=== PATIENT | female | born 1970 | race Caucasian/White ===

== ENCOUNTER 2017-06-16 15:55 | Emergency (ER) | payer MEDICAID, SELFPAY ==
[2017-06-16 15:56] VITALS: BP 107/63; PULSE 51; RESP 16; TEMP 36.2; O2SAT 98; BMI 25.7
--- NOTE | 2017-06-16 16:06 | ED.RN ---
pt fell two days ago down her front porch. reports head and neck pain. pt on blood thinner. denies loc. pt a+ox3. reports left shoulder and wrist pain. pt reports slipped on ice.
--- NOTE | 2017-06-16 16:10 | RAD_ITS ---
STUDY: X-RAY - LEFT SHOULDER REASON FOR EXAM: Female, 47 years old. PAIN FALL TECHNIQUE: 4 view(s) of the shoulder. COMPARISON: None. FINDINGS: Normal glenohumeral articulation. Normal acromioclavicular joint. Normal acromion. Normal humeral head and visualized proximal humerus. The soft tissue structures are unremarkable. Normal visualized pulmonary apex. RAD/Shoulder min 2 Views IMPRESSION: Normal x-ray examination of the shoulder. Electronically Signed: Ha Hanson MD at 16:39 EST , Service support ,
--- NOTE | 2017-06-16 16:10 | CT_ITS ---
STUDY: CT BRAIN WITHOUT CONTRAST REASON FOR EXAM: Female, 47 years old. FALL HIT HEAD RADIATION DOSAGE (If Supplied By Facility): CTDIvol = ( 44.99 ) mGy, DLP = ( 745.49 ) mGycm TECHNIQUE: Transaxial CT imaging of the brain was performed without administration of intravenous contrast material. Individualized dose optimization techniques were used for this CT. COMPARISON: None. FINDINGS: Normal soft tissue structures. Normal calvarium. Normal size ventricles and extra-axial spaces for the patient's age. Normal white matter tracts of the cerebral hemispheres. Normal basal ganglia and thalami. Normal brainstem. Normal cerebellum. There is no intracranial hemorrhage. There are no findings of an acute ischemic infarction. Normal visualized paranasal sinuses. CT/Brain/Head without Contrast IMPRESSION: Normal unenhanced CT scan of the brain. Electronically Signed: Ha Hanson MD at 16:38 EST , Service support ,
--- NOTE | 2017-06-16 16:22 | RAD_ITS ---
STUDY: X-RAY - CERVICAL SPINE REASON FOR EXAM: Female, 47 years old. FALL HIT HEAD TECHNIQUE: 3 view(s) of the cervical spine were obtained. COMPARISON: None FINDINGS: Normal anterior atlantoaxial articulation. Normal odontoid process. Normal cervical lordosis. There is multi-level endplate spondylosis. There is multi-level degenerative disc disease with multilevel disc space narrowing. Normal visualized intervertebral neuroforamina. The soft tissue structures are unremarkable. RAD/Cerv Spine 2 or 3 Views IMPRESSION: There are degenerative changes as noted above. Electronically Signed: Ha Hanson MD at 16:40 EST , Service support ,
[2017-06-16] MEDS: 0.9% Normal Saline 1,000 ML 1000 ML IV (17:27)
[2017-06-16] MEDS: proCHLORPERazine 10 MG/2 ML Vial IV (17:28)
--- NOTE | 2017-06-16 17:45 | ED.VISSUMM ---
- ER Visit Summary Date of Service: 06/16/17 Chief Complaint: [Headache] History of Present Illness: The patient is a 47 F [presents to the emergency department with a headache that started earlier today. Patient gives history of a fall 2 days ago and slipping on the ice striking her head on a concrete step. Patient did not think much of the injury initially in had a mild headache but woke up the next morning feeling fine. Today she was working on a computer most of the day and developed a headache for which she took some Excedrin which initially resolved the pain however after about a half an hour the headache came back. Patient describes the headache is right-sided. Patient describes some nausea and some photophobia. She feels somewhat lightheaded. Patient gives history of being on Xarelto for history of A. fib.] Physical Examination: [HEENT-PERRLA, EOMI. Cranial nerves II through XII grossly intact. TMs clear. Mucous membranes moist. No adenopathy. No scalp hematomas noted no bony depressions noted. Patient has some mild tenderness over the C-spine diffusely. Cardiovascular-regular rate and rhythm without murmur or ectopy Lungs-clear to auscultation, chest wall stable without crepitus or subcu emphysema Abdomen-normoactive bowel sounds, soft, nontender, no rebound or rigidity, no peritoneal signs. Neuro ehtf-dxethp-xfpu and heel velasquez testing within normal limits, negative Romberg, negative pronator drift, fundi benign Extremities-intact ?4, normal range of motion, normal pulses, atraumatic]. Patient has some mild tenderness over the anterior glenohumeral joint of the left shoulder with painful range of motion. Test Results: [CT scan of the brain without contrast was normal.] X-rays of the C-spine showed degenerative changes but no fractures. X-rays of the left shoulder show no fractures. Emergency Department Course and Treatment: [Patient had a liter normal same fluid bolus ordered as well as Compazine and Benadryl as well as Decadron 10 mg IV.] His headache resolved Treatment Plan: [Patient advised to follow-up with her primary care physician in 3-5 days] Disposition: [Discharged home in stable condition. Patient advised to return if worsening headache, difficulty with balance, or speech, or condition should worsen in any way.] Impression: [Headache-migraine versus postconcussive type syndrome] This note was generated with [employer] dictation software. It may contain incorrect words, spelling, and punctuation that were not noted in review of the chart prior to signing ED Disposition - Plan for ED Patient: Chief Complaint: Headache Referrals: Maxime Caldwell DO [Primary Care Provider] -
--- NOTE | 2017-06-16 18:04 | ED.DEP ---
ED Disposition - Plan for ED Patient: Chief Complaint: Headache Instructions: ED Headache Migraine, ED Concussion Referrals: Maxime Caldwell DO [Primary Care Provider] - 3-5 Days
--- NOTE | 2017-06-16 18:05 | ED.RN ---
THIS RN REASSESSED PT POST MEDICATION. PT RESTING COMFORTABLY, AWAKENED EASILY. REPORTS, I AM FEELING BETTER. RATES PAIN 2/10. PT PLACED FOR RE-EVALUATION BY
[2017-06-16 18:13] VITALS: BP 115/62; PULSE 63; RESP 14; O2SAT 98
--- NOTE | 2017-06-16 18:14 | ED.RN ---
PT AND EDUCATED ON WRITTEN AND VERBAL DISCHARGE INSTRUCTIONS. PT AND VERBALIZE UNDERSTANDING. PT EDUCATED NOT TO DRIVE AFTER HAVING COMPAZINE BECAUSE IT CAN MAKE PT DROWSY. REPORTS HE WILL DRIVE HOME. PT IV D/C WITH CATHETER INTACT. PRESSURE APPLIED TO SITE, BECAUSE PT IS ON BLOOD THINNER. BLEEDING STOPPED. PT AMBULATORY HOME WITH . NO NEED FOR STAFF ASSISTANCE.
== END 2017-06-16 18:16 | disposition home or self-care (01) ==
LOC: ED 16:38
PROVIDERS: Emergency Provider Emergency Medicine; Family Provider Student in an Organized Health Care Education/Training Program; PCP Student in an Organized Health Care Education/Training Program
DX: S06.0X9A Concussion with loss of consciousness of unspecified duration, initial encounter (principal); R51 Headache; S43.402A Unspecified sprain of left shoulder joint, initial encounter; S16.1XXA Strain of muscle, fascia and tendon at neck level, initial encounter; W00.0XXA Fall on same level due to ice and snow, initial encounter; Y93.9 Activity, unspecified; Y92.89 Other specified places as the place of occurrence of the external cause; Y99.9 Unspecified external cause status; I48.91 Unspecified atrial fibrillation; E03.9 Hypothyroidism, unspecified; F32.9 Major depressive disorder, single episode, unspecified
CPT/HCPCS: 70450; 72040; 73030; 99283; J7030

== ENCOUNTER 2017-06-28 03:30 | Observation (INO) | payer OTHER, MEDICAID, SELFPAY ==
[2017-06-28] VITALS (21 sets, daily range): BP systolic 80–100; BP diastolic 42–64; PULSE 63–122; RESP 12–18; TEMP 36.3–36.9; O2SAT 95–99; BMI 26.4; BMI 26.6; BMI 26.7
--- NOTE | 2017-06-28 03:49 | RAD_ITS ---
STUDY: X-RAY CHEST REASON FOR EXAM: Female, 47 years old. Dizziness TECHNIQUE: Single AP portable view of the chest. COMPARISON: None. FINDINGS: Pacemaker is seen on the left side. The lungs are clear and expanded. There is no demonstrated pleural abnormality. Normal size heart. Normal mediastinum and berta. Normal visualized pulmonary arteries. Normal visualized aortic arch and descending thoracic aorta. Normal visualized thoracic spine. Normal visualized ribs, clavicles, and shoulders. There is no demonstrated abnormality of the visualized soft tissue structures of the upper abdomen. RAD/Chest 1 View (Portable) IMPRESSION: Normal x-ray examination of the chest. Electronically Signed: Frankie Mullins MD at 4:43 EST Tel , Service support ,
--- NOTE | 2017-06-28 03:49 | CT_ITS ---
STUDY: CT BRAIN WITHOUT CONTRAST REASON FOR EXAM: Female, 47 years old. DIZZINESS, THINKS SHE PASSED OUT, HX A-FIB, PT HAS ICD THAT IS TURNED OFF RADIATION DOSAGE (If Supplied By Facility): CTDIvol = ( 44.99 ) mGy, DLP = ( 762.36 ) mGycm TECHNIQUE: Transaxial CT imaging of the brain was performed without administration of intravenous contrast material. Individualized dose optimization techniques were used for this CT. COMPARISON: None. FINDINGS: Normal soft tissue structures. Normal calvarium. Normal size ventricles and extra-axial spaces for the patient's age. Normal white matter tracts of the cerebral hemispheres. Normal basal ganglia and thalami. Normal brainstem. Normal cerebellum. There is no intracranial hemorrhage. There are no findings of an acute ischemic infarction. Normal visualized paranasal sinuses. CT/Brain/Head without Contrast IMPRESSION: Normal unenhanced CT scan of the brain. Electronically Signed: Frankie Mullins MD at 4:30 EST Tel , Service support ,
--- NOTE | 2017-06-28 03:49 | EKG12_ITS ---
Test Reason : DIZZINESS Blood Pressure : / mmHG Vent. Rate : 081 BPM Atrial Rate : 375 BPM P-R Int : 000 ms QRS Dur : 104 ms QT Int : 438 ms P-R-T Axes : 000 071 -84 degrees QTc Int : 508 ms Atrial fibrillation with occasional ventricular-paced complexes Marked ST abnormality, possible inferior subendocardial injury Marked ST abnormality, possible anterolateral subendocardial injury Prolonged QT Abnormal ECG Confirmed by EVE PLUMMER, JAMIL ([id number]), city magistrate YAMEL ROGERS ([id number]) on 06/29/2017 1:03:08 PM Referred By: CHELLE Confirmed By:JAMIL PRADO MD
[2017-06-28] MEDS: 0.9% Normal Saline 1,000 ML 1000 ML IV (04:01)
[2017-06-28 04:04] LABS: Absolute Lymphocyte Count 1.67 X10^3/ul (0.83-4.51); Absolute Neutrophil Count 3.3 X10^3/uL (2.0-7.7); Basophil# 0.04 X10^3/uL; Basophil% 0.7 % (0-1); Eosinophil# 0.11 X10^3/uL; Hematocrit 39.4 % (37-47); Hemoglobin 13.5 g/dl (12.0-15.0); Lymphocyte # 1.67 X10^3/ul (4.0); Lymphocyte % 30.2 % (19-41); Mean Corp Hgb Conc 34.3 g/gl (32-36); Mean Corpuscular Hgb 28.5 pg (27.0-32.0); Mean Corpuscular Volume 83.1 fL (81-99); Mean Platelet Vol. 9.8 fl (6.2-12.0); Monocyte# 0.46 X10^3/uL; Monocyte% 8.3 % (0-10); Neutrophil # 3.25 X10^3/uL (2.7-7.7); Neutrophil % 58.8 % (47-70); Platelet Count 178 K/mm3 (150-450); RBC Distribution Width CV 13.2 % (11.6-14.6); RBC Distribution Width SD 39.4 fl (35.1-43.9); Red Blood Count 4.74 M/mm3 (4.2-5.4); White Blood Count 5.5 K/mm3 (4.4-11.0)
[2017-06-28 04:11] LABS: POSITIVE COUNT NO; POSITIVE DIFFERENTIAL NO; POSITIVE MORPHOLOGY NO
[2017-06-28 04:17] LABS: Anion Gap 7 (5-15); BUN 16 mg/dL (7-18); BUN/Creat Ratio 18.8 RATIO (10-20); Calcium,Total 8.4 mg/dL (8.5-10.1); Chloride 105 mmol/L (98-107); Creatinine, Serum 0.85 mg/dL (0.55-1.02); EST Glomerular Filtration Rate 76 mL/min (>60); Est Glom Filt Rate - Afr Amer 91 mL/min (>60); Estimated Creatinine Clearance 72.04 ml/min; Glucose 108 mg/dL (74-106); Sodium Level 140 mmol/L (136-145)
--- NOTE | 2017-06-28 04:40 | NURSING ---
DR. CORBETT MADE AWARE OF PATIENT'S BP OF 85/53 AND HE DOESN'T WANT HER TO HAVE ANYMORE FLUIDS.
--- NOTE | 2017-06-28 04:45 | ED.VISSUMM ---
- ER Visit Summary Date of Service: 06/28/17 Chief Complaint: Syncope History of Present Illness: The patient is a [address] Chaparro and Dr. Caldwell. She has a history of paroxysmal atrial fibrillation, hypertrophic obstructive cardiomyopathy, and mitral valve prolapse. She is anticoagulated with Xarelto. Patient reports that she woke up this morning and sat up and everything was black. She laid back down and did not have a loss of consciousness. She then went to the bathroom. When she stood up off the commode she was lightheaded and did have a syncopal episode. There was no preceding chest pain, shortness of breath, or palpitations. She reports that she has right shoulder pain that is 1 out of 10 in severity. She has right ear pain that is 2 out of 10 in severity. Review of systems is negative. Physical Examination: Vitals: 97.4, 81/55, 91, 18, 97% on room air which is not hypoxic. General: Well-nourished and well-developed. Head: Normocephalic atraumatic. Neck: Supple, no lymphadenopathy. No JVD. Nontender. Cardiovascular: Irregularly irregular rhythm with a 3 out of 6 systolic murmur. Respiratory: No respiratory distress. Clear to auscultation bilaterally. Abdominal: Soft, nontender, nondistended, normal bowel sounds. No guarding, rebound, or peritoneal signs. Back: Nontender. Extremities: Nontender, no edema. Skin: Normal color, no rash. Neurologic: Alert and oriented ?3. Cranial nerves II through XII are intact. Normal strength and sensation. Psych: Normal affect. Test Results: EKG shows atrial fibrillation rate of 81 with occasional ventricular paced complexes. She has T-wave inversions and ST depression in the inferior leads as well as V3 to V6. This is not significantly changed from an EKG that she had back in April 2013 when she was in atrial fibrillation. CBC is normal. Chem-7 is marked for glucose of 108 and calcium of 8.4. Troponin is negative. Chest x-ray shows no acute disease. CT the brain shows no acute disease. Emergency Department Course and Treatment: Patient is given a liter bolus of normal saline. She did remain hypotensive. However, she reports that this is her baseline blood pressure. Treatment Plan: The patient was discussed with Dr. Escalona who asked that she be admitted to the hospital for further evaluation and treatment. He was then discussed with Dr. Betancur. Disposition: Admitted in improved condition. Impression: 1. Syncope. 2. Atrial fibrillation. 3. Hypertrophic obstructive cardiomyopathy. 4. Coagulopathy on Xarelto. 5. Hypotension. This note was generated with [employer] dictation software. It may contain incorrect words, spelling, and punctuation that were not noted in review of the chart prior to signing ED Disposition - Plan for ED Patient: Chief Complaint: Dizziness Referrals: Maxime Caldwell DO [Primary Care Provider] -
--- NOTE | 2017-06-28 05:12 | PCM.HP.STD ---
Problem List (1) Micturition syncope Status: Acute (2) Afib Status: Acute (3) Hypokalemia Status: Acute (4) Depressed Status: Chronic (5) Hypertrophic cardiomyopathy Status: Chronic History of Present Illness Date of Admission: 06/28/17 Chief Complaint: Micturition syncope The patient is a 47 year old female w/ h/o paroxysmal atrial fibrillation, hypertrophic obstructive cardiomyopathy, and mitral valve prolapse admitted for micturition syncope. She woke up this morning and had to use the restroom. She felt dizzy upon standing and had to lay back down. However, she had to go so she got up slowly and went to the restroom. She felt that upon standing up, everything was temporary black. She carefully made her way to the commode and used the restroom. She fainted shortly after urination when she attempted to stand up to make her way back. She hit her right arm and ear. There was no lost of consciousness. Laying down help with her dizziness. She was no associated SOB, chest pain or palpitation. She went to the ED for further workup. Past Medical History Past Medical History (Chronic Problems): Chronic Problems Depressed (Chronic) Hypothyroidism (Chronic) Hypertrophic cardiomyopathy (Chronic) Allergies codeine Adverse Reaction (Verified 06/28/17 03:36) Vomiting latex Adverse Reaction (Verified 06/28/17 03:36) Unknown Penicillins Adverse Reaction (Verified 06/28/17 03:36) Swelling BENADRYL Adverse Reaction (Uncoded 06/28/17 03:36) Other Home Medications: Ambulatory Orders Medication Instructions Recorded Levothyroxine [Synthroid] 112 mcg PO DAILY 04/26/13 Ubidecarenone [Co Q-10] 200 mg PO DAILY 04/26/13 Metoprolol(XL)Succ [Toprol Xl 50 mg PO BID 06/05/14 (Beta Rodrigue)] Multivit with Calcium,Iron,Min 1 tab PO DAILY 06/05/14 [Multiple Vitamins For Women] Omeprazole [Prilosec] 40 mg PO PRN PRN 06/05/14 BuPROPion [Wellbutrin] 75 mg PO DAILY 06/16/17 Rivaroxaban [Xarelto] 10 mg PO DAILY 06/16/17 Tamsulosin HCl [Flomax] 0.4 mg PO DAILY PRN PRN 06/28/17 Surgical History: - - Recent oophorectomy which had no complications Psychiatric History: No pertinent psych hx [employer] History: - - Recent oophorectomy Smoking Status: Former smoker Alcohol: None Drugs: None - *Family History Maternal History Items: No pertinent history Review of Systems Constitutional: Denies: Chills, Fever, Weight Change Eyes: Denies: Cataracts, Double vision, Eyelid Inflammation HEENT: Denies: Head Aches, Sinus Congestion, Sinus Drainage Cardiovascular: Denies: Chest Pain, Palpitations Respiratory: Denies: Cough, Shortness of breath at rest, Sputum production Gastrointestinal: Denies: Abdominal Pain, Nausea, Vomiting Genitourinary: Denies: Dysuria Musculoskeletal: Denies: Joint Pain, Joint Tenderness Skin: Denies: Rash, Wounds Neurological: Denies: Numbness, Tingling, Focal weakness Psychiatric: Denies: Anxiety, Depression, Homicidal Ideations, Suicidal Ideations Hematologic/ Lymphatic: Denies: Easy Bruising, Easy Bleeding VTE Information - Inpt Only VTE Present on Admission: No VTE Mechan Device Prophylaxis: SCD's VTE Pharm Prophylaxis ordered?: Yes Patient Problems: Active and Suspected Problems Micturition syncope (Acute) - Physical Exam General: Alert, Oriented x3, Cooperative HEENT: Atraumatic, PERRLA, EOMI, Normocephalic Neck: Supple, No JVD, Negative Carotid Bruits Lungs: Clear to auscultation, Normal air movement Cardiovascular: Regular rate, No murmurs Abdomen: Bowel Sounds Present, Soft, Non Tender Extremities: No edema, Capillary Refill Less than 3 Seconds Skin: No rashes, No breakdown Musculoskeletal: No Tenderness to Palpation of Joints or Extremities Neurological: Cranial nerves II-XII grossly intact Psych/Mental Status: Normal Affect, Appropriate Vital Signs Temp Pulse Resp BP Pulse Ox 97.4 F L 93 17 91/64 98 06/28/17 04:42 06/28/17 04:42 06/28/17 04:42 06/28/17 04:42 06/28/17 04:42 Oxygen Delivery Method Room Air Weight: 72 kg Body Mass Index (BMI) 26.4 Laboratory Tests Past 24 Hrs 06/28/17 06/28/17 03:42 03:42 WBC 5.5 RBC 4.74 Hgb 13.5 Hct 39.4 MCV 83.1 MCH 28.5 MCHC 34.3 RDW 13.2 RDW Differential 39.4 Plt Count 178 MPV 9.8 Immature Gran % (Auto) 0.000 Neut % (Auto) 58.8 Lymph % (Auto) 30.2 [place] % (Auto) 8.3 Eos % (Auto) 2.0 Baso % (Auto) 0.7 Absolute Neuts (auto) 3.3 Absolute Lymphs (auto) 1.67 Total Counted Not Reportable Sodium 140 Potassium 4.0 Chloride 105 Carbon Dioxide 28.0 Anion Gap 7 BUN 16 Creatinine 0.85 Estim Creat Clear Calc 72.04 Est GFR (MDRD) Af Amer 91 Est GFR (MDRD) Non-Af 76 BUN/Creatinine Ratio 18.8 Glucose 108 H Calcium 8.4 L Troponin I < 0.02 Assessment/Plan Active and Suspected Problems Micturition syncope (Acute) 47 year old female w/ h/o paroxysmal atrial fibrillation, hypertrophic obstructive cardiomyopathy, and mitral valve prolapse admitted for micturition syncope. 1) Micturition syncope: Probably a combination of vasovagal and postural hypotension. Will get serial trops. Will get ECHO in AM. Will get orthostatic. Will also get carotid U/S. Will get Utox. CT brain negative. Monitor. 2) Orthostatic hypotension: Probably secondary to volume down. Will hydration. Check orthostatic. No e/o infection, ie no fever, no leukocytosis, unremarkable chest xray for infection. Monitor. 3) Paroxysmal atrial fibrillation: EKG unchanged from 2013 which disclosed afib with T-wave inversion and ST depression in inferior leads. Will hold metoprolol given symptomatic hypotension. Hydration. Will consider IV meds to control rate if needed. Will also consider cardizem if needed. Serial trops. Monitor. 4) Prophylaxis: Xarelto.
--- NOTE | 2017-06-28 05:26 | ED.RN ---
PATIENT C/O DIZZINESS AND NAUSEA. DR. CORBETT MADE AWARE. HE DOESNT WANT TO DO ANYTHING AT THIS TIME. [place] ORDERED.
[2017-06-28] MEDS: Ondansetron 4 MG/2 ML Vial IV (05:33)
--- NOTE | 2017-06-28 05:49 | CDU_ITS ---
Reason For Study: syncope Rt. Velocities/BP Lt. Velocities/BP Prox CCA 87.9/15.8 cm/sec. Prox CCA 99.7/18.2 cm/sec. Mid CCA 98.5/19.9 cm/sec. Mid CCA 117.0/28.7 cm/sec. Dist CCA 82.1/22.3 cm/sec. Dist CCA 113.0/24.6 cm/sec. Prox ICA 87.4/16.4 cm/sec. Prox ICA 73.3/21.1 cm/sec. Mid ICA 71.5/31.7 cm/sec. Mid ICA 84.4/34.6 cm/sec. Dist ICA 62.1/27.0 cm/sec. Dist ICA 90.9/42.2 cm/sec. Rt. ICA/CCA = 71.5/98.5=0.73. Lt. ICA/CCA = 90.9/117.0=0.78. Prox ECA 91.5/11.7 cm/sec. Prox ECA 109.0/16.4 cm/sec. Rt. Vert. 43.6/16.9 cm/sec. Lt. Vert. 51.5/18.5 cm/sec. Right Extracranial There is no significant atherosclerotic plaque noted in the right common carotid artery. There is no significant atherosclerotic plaque noted in the right internal carotid artery. There is no significant atherosclerotic plaque noted in the right external carotid artery. Antegrade flow is noted in the right vertebral artery. Left Extracranial There is no significant atherosclerotic plaque noted in the left common carotid artery. There is intimal thickening but no significant atherosclerotic plaque noted in the left internal carotid artery. There is no significant atherosclerotic plaque noted in the left external carotid artery. Antegrade flow is noted in the left vertebral artery. Procedure Carotid Duplex 72074. The study was technically difficult. Due to arrhythmia. Exam performed portable in patient room. Interpretation Summary Mild (<50%) stenosis right extracranial internal carotid. Mild (<50%) stenosis left extracranial internal carotid. Flow within the vertebral arteries is antegrade bilaterally. Ordering Physician: Zi Swift Referring Physician: Maxime Caldwell Performed By: Hannah Mulligan, NOHEMI, RVT
--- NOTE | 2017-06-28 05:55 | ECHOD_ITS ---
Reason For Study: HTN Procedure This was a 2D Doppler, Color Flow transthoracic echocardiogram. The study was technically difficult. Exam performed portable in patient room. Left Ventricle Normal LV size. Severe eccentric left ventricular hypertrophy. The echo findings are consistent with hypertrophic cardiomyopathy. Left ventricular systolic function is normal. The estimated ejection fraction is 65 %. Unable to assess diastolic dysfunction. No regional wall motion abnormalities noted. Right Ventricle Normal RV size. ICD or pacer leads identified within the right ventricle. Normal systolic function. Atria Normal left atrium. Normal right atrium. ICD or pacer leads identified within the right atrium. Mitral Valve Bileaflet diffuse mitral valve thickening. There is mild to moderate mitral annular calcification. Systolic anterior motion of the mitral valve. Mild-Moderate (1-2+) eccentric mitral valve insufficiency. Tricuspid Valve Normal tricuspid valve. Mild (1+) tricuspid valve insufficiency. Pulmonary artery systolic pressure is 31 mmHg. Aortic Valve Trisinus/trileaflet aortic valve. Pulmonic Valve Normal pulmonic valve. Great Vessels Normal aortic root. The pulmonary artery is normal size. Normal inferior vena cava. Pericardium/Pleural Trivial pericardial effusion. MMode/2D Measurements & Calculations LVIDd: 3.5 cm IVSd: 1.7 cm LA dimension: 4.3 cm LVIDs: 1.5 cm LVPWd: 1.6 cm RVDd: 3.1 cm FS: 58.2 % LAV(MOD-bp): 59.2 ml LA A4 area: 18.1 cm2 RA A4 area: 11.8 cm2 LAV(MOD-bp) Indexed: 33.1 ml/m2 LAV(MOD-sp2): 66.8 ml LAV(MOD-sp4): 49.6 ml Doppler Measurements & Calculations MV E max quang: 155.4 cm/sec TR max quang: 256.9 cm/sec TR max P.5 mmHg Interpretation Summary Normal LV size. Severe eccentric left ventricular hypertrophy. Left ventricular systolic function is normal. The estimated ejection fraction is 65 %. The echo findings are consistent with hypertrophic cardiomyopathy. Unable to assess diastolic dysfunction. Ordering Physician: Zi Swift Referring Physician: GERALDINE YOUSIF Performed By: Dipika Dunn, NOHEMI, RVT
[2017-06-28] MEDS: 0.9% Normal Saline 1,000 ML 999 ML IV (06:07)
--- NOTE | 2017-06-28 06:09 | NURSING ---
Attempted to get full set of orthostatic vital signs, but patient felt as though she was too dizzy to stand at this time.
[2017-06-28] MEDS: Levothyroxine 112 MCG Tablet PO (06:38)
[2017-06-28] MEDS: 0.9% Normal Saline 1,000 ML 125 ML IV ×2 (07:14→12:41)
[2017-06-28 08:21] LABS: Red Blood Count 4.52 M/mm3 (4.2-5.4); White Blood Count 7.1 K/mm3 (4.4-11.0)
[2017-06-28 08:22] LABS: Basophil% 0.3 % (0-1); Eosinophils% 0.6 % (0-5); Hematocrit 38.1 % (37-47); Hemoglobin 12.9 g/dl (12.0-15.0); Lymphocyte % 12.4 % (19-41); Mean Corp Hgb Conc 33.9 g/gl (32-36); Mean Corpuscular Hgb 28.5 pg (27.0-32.0); Mean Corpuscular Volume 84.3 fL (81-99); Mean Platelet Vol. 9.5 fl (6.2-12.0); Monocyte% 2.5 % (0-10); Neutrophil # 5.99 X10^3/uL (2.7-7.7); Neutrophil % 84.1 % (47-70); POSITIVE COUNT NO; POSITIVE DIFFERENTIAL NO; POSITIVE MORPHOLOGY NO; Platelet Count 139 K/mm3 (150-450); RBC Distribution Width CV 13.2 % (11.6-14.6); RBC Distribution Width SD 39.9 fl (35.1-43.9)
[2017-06-28 08:23] LABS: Basophil# 0.01 X10^3/uL; Eosinophil# 0.04 X10^3/uL; Lymphocyte # 0.88 X10^3/ul (4.0); Monocyte# 0.18 X10^3/uL
[2017-06-28 08:50] LABS: ALB/GLOB Ratio 1.3 RATIO (0.9-2.4); AST(SGOT) 13 U/L (15-37); Alanine Aminotransfer ALT/SGPT 20 U/L (13-56); Albumin, Serum 3.4 g/dL (3.2-5.0); Alkaline Phosphatase 57 U/L (45-117); Anion Gap 8 (5-15); BUN 14 mg/dL (7-18); BUN/Creat Ratio 22.7 RATIO (10-20); Calcium,Total 7.8 mg/dL (8.5-10.1); Chloride 111 mmol/L (98-107); Creatinine, Serum 0.62 mg/dL (0.55-1.02); EST Glomerular Filtration Rate 109 mL/min (>60); Est Glom Filt Rate - Afr Amer 132 mL/min (>60); Estimated Creatinine Clearance 98.77 ml/min; Globulin 2.6 g/dL (2.2-4.2); Glucose 119 mg/dL (74-106); Potassium 4.3 mmol/L (3.5-5.1); Sodium Level 143 mmol/L (136-145)
[2017-06-28] MEDS: Rivaroxaban 10 MG Tablet PO (09:10)
[2017-06-28 10:16] LABS: Amphetamine Urine VISTA NEGATIVE (<1000 ng/mL); Barbiturate Urine VISTA NEGATIVE (< 200 ng/mL); Benzodiazepine Urine VISTA NEGATIVE (< 200 ng/mL); Cocaine Urine VISTA NEGATIVE (< 300 ng/mL); Ecstacy Urine VISTA NEGATIVE (< 500 ng/mL); Methadone Urine VISTA NEGATIVE (< 300 ng/mL); PCP Urine VISTA NEGATIVE (< 25 ng/mL); THC Urine VISTA NEGATIVE (< 50 ng/mL); Vista UDS pH Range 7
--- NOTE | 2017-06-28 10:50 | CON.PCM_ITS ---
Reason for Consult Date of Consultation: 06/28/17 Reason for Consultation: Syncope and atrial fibrillation History of Present Illness: The patient is a 47 year old F history significant for hypertrophic cardiomyopathy of the obstructive variety with mild mitral valve prolapse and regurgitation also a history of paroxysmal atrial fibrillation. She initially underwent dual-chamber pacemaker implantation in 1998 which was subsequently upgraded to an ICD. Per the patient's request it was then changed back to a dual-chamber pacemaker. She had been doing well but said that she had had some renal problems and was put on Flomax. She took a Flomax yesterday and this morning when she got up she realized that she was dizzy. Got up to go to the bathroom and she subsequently passed out. The next thing she knew was his son was calling her. She presented to the emergency room and was noted to be in atrial fibrillation and also relatively hypotensive. She denies any chest pain or shortness of breath or paroxysmal nocturnal dyspnea she did not feel her atrial fibrillation she has been anticoagulated with Xarelto. Last evaluation in the office was in February 2017 and at that time she was noted to be doing well her last echocardiogram in September 2016 demonstrated an ejection fraction of 60 % with severe asymmetric septal hypertrophy moderate left atrial enlargement and mitral valve prolapse with 2+ mitral regurgitation. She currently feels well. [] Past Medical History Allergies/Adverse Reactions: Allergies codeine Adverse Reaction (Verified 06/28/17 03:36) Vomiting latex Adverse Reaction (Verified 06/28/17 03:36) Unknown Penicillins Adverse Reaction (Verified 06/28/17 03:36) Swelling BENADRYL Adverse Reaction (Uncoded 06/28/17 03:36) Other Home Medications: Ambulatory Orders Medication Instructions Recorded Levothyroxine [Synthroid] 112 mcg PO DAILY 04/26/13 Ubidecarenone [Co Q-10] 200 mg PO DAILY 04/26/13 Metoprolol(XL)Succ [Toprol Xl 50 mg PO BID 06/05/14 (Beta Rodrigue)] Multivit with Calcium,Iron,Min 1 tab PO DAILY 06/05/14 [Multiple Vitamins For Women] Omeprazole [Prilosec] 40 mg PO PRN PRN 06/05/14 BuPROPion [Wellbutrin] 150 mg PO DAILY 06/16/17 Rivaroxaban [Xarelto] 20 mg PO DAILY 06/16/17 Tamsulosin HCl [Flomax] 0.4 mg PO DAILY PRN PRN 06/28/17 Past Medical History (Chronic Problems): Chronic Problems Depressed (Chronic) Hypothyroidism (Chronic) Hypertrophic cardiomyopathy (Chronic) Surgical History: - - Recent oophorectomy which had no complications Psychiatric History: 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 Denies: Chest Discomfort, Shortness of Breath, Orthopnea, PND, Peripheral Edema, Palpitations, Lightheadedness, Near Syncope Respiratory: Denies: Cough, Sputum Production, Hemoptysis Gastrointestinal: Denies: Hematemesis, Hematochezia, Melena Genitourinary: Denies: Dysuria, Hematuria Skin: Denies: Rash Subjectve: Pleasant lady in no apparent distress. Objective: Vital Signs Temp Pulse Resp BP Pulse Ox 97.5 F L 87 18 92/50 L 95 06/28/17 10:04 06/28/17 10:04 06/28/17 10:04 06/28/17 10:04 06/28/17 10:04 Oxygen Delivery Method Room Air Weight: 160 lb 7.944 oz Body Mass Index (BMI) 26.6 Orthostatic Vital Signs Start: 06/28/17 06:08 Freq: q24h Status: Active Protocol: Activity Type Activity Date Activity User E-Sign Co-Sign Detail Recorded Client Recorded Date Recorded By Document 06/28/17 06:08 [facility] [id number] 06/28/17 06:09 [facility] 06/28/17 06:08 Orthostatic Vitals Sitting -Blood Pressure (90/60-120/80) 81/50 L -Extremity Use Right Arm -Pulse Rate (60-100) 108 H Lying -Blood Pressure (90/60-120/80) 86/55 L -Extremity Use Right Arm -Pulse Rate (60-100) 105 H 06/28/17 06:09 Nursing Note by Loraine Walden Attempted to get full set of orthostatic vital signs, but patient felt as though she was too dizzy to stand at this time. Initialized on 06/28/17 06:09 - END OF NOTE Intake and Output for Last 24 Hours 06/26/17 06/27/17 06/28/17 23:59 23:59 23:59 Intake Total 349 / 349 Balance 349 / 349 General: Awake, Alert, Oriented x 3 HEENT: PERRL, EOMI, Sclera Non Icteric Neck: Supple, Good ROM, No Lymph Node Enlargement Lungs: Clear to auscultation Cardiovascular: Irregular Rhythm, Normal S1, Normal S2, No Rubs, No Gallops Murmur Murmur: Grade 2/6, Mid Systolic, LLSB, Axilla Vascular: No Carotid Bruits, Normal Femoral Pulses, Normal Radial Pulses, Normal Dorsalis Pedal Pulse, Normal Posterior Tibial Pulses Abdomen: Bowel Sounds Present, Soft, Non Tender, No HSM, No Organomegaly Extremities: No Cyanosis, No Clubbing, No edema Neurological: No Focal Motor or Sensory Deficit 06/28/17 07:55: Sodium 143, Potassium 4.3, Chloride 111 H, Carbon Dioxide 24.0, Anion Gap 8, BUN 14, Creatinine 0.62, Est GFR (MDRD) Af Amer 132, Est GFR (MDRD ) Non-Af 109, BUN/Creatinine Ratio 22.7 H, Glucose 119 H, Calcium 7.8 L, Total Bilirubin 0.40 06/28/17 07:55: WBC 7.1, RBC 4.52, Hgb 12.9, Hct 38.1, MCV 84.3, MCH 28.5, MCHC 33.9, RDW 13.2, RDW Differential 39.9, Plt Count 139 L, MPV 9.5, Immature Gran % (Auto) 0.100, Neut % (Auto) 84.1 H, Lymph % (Auto) 12.4 L, [place] % (Auto) 2.5, Eos % (Auto) 0.6, Baso % (Auto) 0.3, Absolute Neuts (auto) Not Reportable, Total Counted Not Reportable 06/28/17 07:55: Troponin I 0.02 Rhythm: EKG: Atrial fibrillation Assessment/Plan 1. Syncopal episode Etiology of the above is likely multifactorial secondary to the atrial fibrillation as well as the Flomax which may have precipitated relative hypotension. My recommendation at this time would be to attempt to restore sinus rhythm or AV sequentially paced rhythm. As the patient has been on anticoagulation continuously I would recommend that we perform a DC cardioversion this afternoon. She should also continue to receive intravenous fluids. If she successfully reverts back to sinus rhythm then I would not make any changes. The Flomax should likely be discontinued or she can call her urologist for an alternative agent. 2. Paroxysmal atrial fibrillation She appears to be back in atrial fibrillation and is anticoagulated. We will attempt to get her back into sinus rhythm which would be beneficial for her hypertrophic cardiomyopathy. 3. Severe asymmetric hypertrophic cardiomyopathy Appears to be fairly stable with this I do not think that she had a malignant rhythm however her pacemaker will be interrogated to ensure that no abnormalities were noted. 4. Dual chamber pacemaker We will continue to have her pacemaker interrogated through our pacemaker clinic and it will be interrogated later today. Have explained the above to her as well as her mother and she understands and agrees to proceed.
--- NOTE | 2017-06-28 11:37 | EKG12_ITS ---
Test Reason : CARDIOVERSION Blood Pressure : / mmHG Vent. Rate : 064 BPM Atrial Rate : 064 BPM P-R Int : 130 ms QRS Dur : 138 ms QT Int : 492 ms P-R-T Axes : 068 -82 089 degrees QTc Int : 507 ms Atrial-sensed ventricular-paced rhythm Abnormal ECG When compared with ECG of 28-JUN-2017 04:03, MANUAL COMPARISON REQUIRED, DATA IS UNCONFIRMED Confirmed by EVE PLUMMER, JAMIL ([id number]), video effects editor YAMEL ROGERS ([id number]) on 06/29/2017 2:00:22 PM Referred By: JAMIL PRADO Confirmed By:JAMIL PRADO MD
--- NOTE | 2017-06-28 12:33 | PCM.OP.BLANK ---
Operative Report Date of Procedure: 06/28/17 DC cardioversion Symptomatic atrial fibrillation with hypertrophic obstructive cardiomyopathy. Patient was seen in consultation and then also seen by Dr. Silva of the critical care anesthesia division. After appropriate informed consent was obtained anterior posterior pads were applied. The patient was then administered 6 mg of intravenous etomidate denies DC cardioversion energy was then applied with 200 J with prompt reversal to sinus rhythm. Patient tolerated the procedure well postprocedure EKG demonstrated sinus rhythm with ventricular pacing at a rate of 5 bpm. Postprocedure blood pressure was 110/70 mmHg. Conclusion Successful DC cardioversion to sinus rhythm. Continue beta-heather as well as Xarelto.
--- NOTE | 2017-06-28 13:05 | PCM.PACRNU ---
Pacer Nurse Hospital Visit Notes: Dual Chamber Pacemaker Evaluation: Interrogation completed post cardioversion at bedside PCU #[id number]. Interrogation shows presenting rhythm to be P synchronous paced @ 72 ppm. Lead impedances and sensing stable. Battery longevity approx 9.5 yrs. CITY MANAGER=73%. Interrogation shows atrial burden 21% and 119 NSVT episodes since last check on 06/11/17. Stored e-grams show atrial fib with RVR and not true VT. Pt had numerous episodes on 06/19/17 and today 06/28/15 @ 1:30am pt went into atrial fib with RVR up to 170 bpm. Pt stated she took a Flomax last night before going to bed and then when got up to go to the bathroom she had syncopal episode. Normal PPM function. No parameter changes made. Counters cleared. Dr. Chaparro notified of above. Genny Cherry RN
--- NOTE | 2017-06-28 14:17 | PCM.OP.BLANK ---
Operative Report Date of Procedure: 06/28/17 CONSCIOUS SEDATION REPORT DATE OF SERVICE: June 28, 2017 BRIEF HISTORY OF PRESENT ILLNESS: The patient is a 47-year-old female with a history of paroxysmal atrial fibrillation and hypertrophic obstructive cardiomyopathy, who presented to the emergency department with a syncopal event. She was noted to be in atrial fibrillation with a rapid ventricular rate at the time of her arrival. The patient was evaluated by cardiology and was referred to undergo a cardioversion. The patient has previously undergone a cardioversion in 2012. She denies any underlying lung disease. She has never been diagnosed with obstructive sleep apnea. Her last ejection fraction was 65-70%. She is currently anticoagulated on Xarelto. PHYSICAL EXAMINATION: VITAL SIGNS: Reviewed and were acceptable. GENERAL: The patient is a female, in no apparent distress, speaking in full sentences. HEENT: Normocephalic, atraumatic. Mucous membranes are moist and pink. Good mouth opening noted. Trachea is midline. Good neck mobility. CHEST: S1, S2 irregularly irregular. Systolic murmur is present LUNGS: Clear to auscultation bilaterally without appreciable wheezes, rales or rhonchi. ABDOMEN: Soft, nontender, nondistended. Positive bowel sounds. EXTREMITIES: There is no clubbing, cyanosis or edema. ASA Class: II DESCRIPTION OF PROCEDURE: After confirmation of informed consent, the patient's anesthesia plan was reviewed in detail. Etomidate was chosen. Risks and benefits were reviewed and the patient agreed to proceed. At 1148, the patient was given 6 mg of etomidate. The patient achieved an appropriate level of sedation and was given a 200 joule synchronized cardioversion by Dr. Chaparro at the bedside. This was successful in achieving normal sinus rhythm. The patient was monitored until 1158, at which time she reached her baseline mental status and function. The patient tolerated the procedure well. COMPLICATIONS: None ESTIMATED BLOOD LOSS: None RECOMMENDATIONS: Okay to recover in usual fashion. Code Visit 9xxxx: Other Procedure See Report
--- NOTE | 2017-06-28 15:20 | PCM.DC ---
- Discharge Diagnoses Current Active Problems: Current Active and Chronic Problems Micturition syncope (Acute) You will use the following diet at home:: No restrictions Your food should be the consistency of: Regular Your liquids should be the consistency of: Regular/Thin Discharge Activity: Return to Normal Activity Weight Bearing Status: Full weight bearing Allergies/Adverse Reactions: Allergies codeine Adverse Reaction (Verified 06/28/17 03:36) Vomiting latex Adverse Reaction (Verified 06/28/17 03:36) Unknown Penicillins Adverse Reaction (Verified 06/28/17 03:36) Swelling BENADRYL Adverse Reaction (Uncoded 06/28/17 03:36) Other Medications to take at Discharge Levothyroxine [Synthroid] 112 mcg PO DAILY 04/26/13 Ubidecarenone [Co Q-10] 200 mg PO DAILY 04/26/13 Metoprolol(XL)Succ [Toprol Xl (Beta Rodrigue)] 50 mg PO BID 06/05/14 Multivit with Calcium,Iron,Min [Multiple Vitamins For Women] 1 tab PO DAILY 06/05/14 Omeprazole [Prilosec] 40 mg PO PRN PRN 06/05/14 BuPROPion [Wellbutrin] 150 mg PO DAILY 06/16/17 Rivaroxaban [Xarelto] 20 mg PO DAILY 06/16/17 Paroxetine HCl [Paxil] 10 mg PO DAILY #30 tab 06/28/17 The following prescriptions were given: Paroxetine HCl [Paxil] 10 mg PO DAILY #30 tab Primary Care Physician: Maxime Caldwell DO [Primary Care Provider] - Please follow up with your Primary Care Physician in: in 3 weeks Please Follow Up With: Tree Chaparro MD When: as directed
--- NOTE | 2017-06-28 23:12 | PCM.DC.SUM ---
Discharge Date and Diagnosis Date of Admission: 06/28/17 Date of Discharge: 06/28/17 - Primary Discharge Diagnosis #1 acute syncope secondary to Flomax #2 paroxysmal atrial fibrillation #3 hypertrophic cardiomyopathy #4 vasomotor flushing secondary to menopause - Secondary Discharge Diagnosis Chronic Problems Depressed (Chronic) Hypothyroidism (Chronic) Hypertrophic cardiomyopathy (Chronic) Hospital Course and Treatment Operations: None Procedures: Cardioversion, - - Carotid arterial Dopplers Summary of Care Provided: The patient is a 47 year old F who was seen in the emergency room at [facility] after having 2 episodes of syncope at her home. Patient took a dose of Flomax in the evening of 06/27/17, she then attempted to get up to use the restroom several hours later and passed out on her bed. Patient then got up and went into the bathroom and was seated on the commode, urinated and then stood up and then passed out again. Workup in the emergency room included an EKG which showed the patient to be in atrial fib. Patient was placed in observation status on PCU, cardiac enzymes were monitored, she was seen in consultation by cardiology who recommended cardioversion. On 06/28/17, cardioversion was carried out with successful return normal sinus rhythm. Patient's pacemaker was interrogated and it showed that the patient went into atrial fibrillation with a rate of approximately 170 bpm at 1:30 AM on 06/28/17. It was felt that the patient's syncopal episode was related to a dose of Flomax that she took-patient was given this medication and told to take it if she felt she had a kidney stone. On 06/28/17, patient was seen and examined and felt to be in stable condition for discharge home, she was discharged on a low dose of Paxil for vasomotor flushing from her menopause. 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 Discharge Activity: Return to Normal Activity Weight Bearing Status: Full weight bearing Home Medications: Medications to take at Discharge Levothyroxine [Synthroid] 112 mcg PO DAILY 04/26/13 Ubidecarenone [Co Q-10] 200 mg PO DAILY 04/26/13 Metoprolol(XL)Succ [Toprol Xl (Beta Rodrigue)] 50 mg PO BID 06/05/14 Multivit with Calcium,Iron,Min [Multiple Vitamins For Women] 1 tab PO DAILY 06/05/14 Omeprazole [Prilosec] 40 mg PO PRN PRN 06/05/14 BuPROPion [Wellbutrin] 150 mg PO DAILY 06/16/17 Rivaroxaban [Xarelto] 20 mg PO DAILY 06/16/17 Paroxetine HCl [Paxil] 10 mg PO DAILY #30 tab 06/28/17 Following Prescrptions Were Given to Patient: Paroxetine HCl [Paxil] 10 mg PO DAILY #30 tab Primary Care Physician: Maxime Caldwell DO [Primary Care Provider] - Please follow up with your Primary Care Physician in: in 3 weeks Please Follow Up With: Tree Chaparro MD When: as directed Disposition: Home Minutes spent on discharge:: 32 Patient Condition:: Stable Meaningful Use Info Meaningful Use Diagnoses (Choose all that apply): None applicable Code Visit OBSV E&M: 82235 Observ/hosp same date L3
--- NOTE | 2017-06-28 23:20 | DS.PCM_ITS ---
Discharge Date and Diagnosis Date of Admission: 06/28/17 Date of Discharge: 06/28/17 - Primary Discharge Diagnosis #1 acute syncope secondary to Flomax #2 paroxysmal atrial fibrillation #3 hypertrophic cardiomyopathy #4 vasomotor flushing secondary to menopause - Secondary Discharge Diagnosis Chronic Problems Depressed (Chronic) Hypothyroidism (Chronic) Hypertrophic cardiomyopathy (Chronic) Hospital Course and Treatment Operations: None Procedures: Cardioversion, - - Carotid arterial Dopplers Summary of Care Provided: The patient is a 47 year old F who was seen in the emergency room at [facility] after having 2 episodes of syncope at her home. Patient took a dose of Flomax in the evening of 06/27/17, she then attempted to get up to use the restroom several hours later and passed out on her bed. Patient then got up and went into the bathroom and was seated on the commode, urinated and then stood up and then passed out again. Workup in the emergency room included an EKG which showed the patient to be in atrial fib. Patient was placed in observation status on PCU, cardiac enzymes were monitored, she was seen in consultation by cardiology who recommended cardioversion. On 06/28/17, cardioversion was carried out with successful return normal sinus rhythm. Patient's pacemaker was interrogated and it showed that the patient went into atrial fibrillation with a rate of approximately 170 bpm at 1:30 AM on 06/28/17. It was felt that the patient's syncopal episode was related to a dose of Flomax that she took-patient was given this medication and told to take it if she felt she had a kidney stone. On 06/28/17, patient was seen and examined and felt to be in stable condition for discharge home, she was discharged on a low dose of Paxil for vasomotor flushing from her menopause. Patient was to follow- up with her PCP and precipitator as an outpatient. Discharge Activity: Return to Normal Activity Weight Bearing Status: Full weight bearing Home Medications: Medications to take at Discharge Levothyroxine [Synthroid] 112 mcg PO DAILY 04/26/13 Ubidecarenone [Co Q-10] 200 mg PO DAILY 04/26/13 Metoprolol(XL)Succ [Toprol Xl (Beta Rodrigue)] 50 mg PO BID 06/05/14 Multivit with Calcium,Iron,Min [Multiple Vitamins For Women] 1 tab PO DAILY Omeprazole [Prilosec] 40 mg PO PRN PRN 06/05/14 BuPROPion [Wellbutrin] 150 mg PO DAILY 06/16/17 Rivaroxaban [Xarelto] 20 mg PO DAILY 06/16/17 Paroxetine HCl [Paxil] 10 mg PO DAILY #30 tab 06/28/17 Following Prescrptions Were Given to Patient: Paroxetine HCl [Paxil] 10 mg PO DAILY #30 tab Primary Care Physician: Maxime Caldwell DO [Primary Care Provider] - Please follow up with your Primary Care Physician in: in 3 weeks Please Follow Up With: Tree Chaparro MD When: as directed Disposition: Home Minutes spent on discharge:: 32 Patient Condition:: Stable Meaningful Use Info Meaningful Use Diagnoses (Choose all that apply): None applicable Code Visit OBSV E&M: 60252 Observ/hosp same date L3
== END 2017-06-28 15:23 | disposition home or self-care (01) ==
LOC: ED 03:53 → PCU 05:22
PROVIDERS: Admitting Provider Internal Medicine; Emergency Provider Emergency Medicine; Family Provider Student in an Organized Health Care Education/Training Program; PCP Student in an Organized Health Care Education/Training Program; Visit Provider Internal Medicine
DX: R55 Syncope and collapse (principal); I48.0 Paroxysmal atrial fibrillation; I42.2 Other hypertrophic cardiomyopathy; N95.1 Menopausal and female climacteric states; E03.9 Hypothyroidism, unspecified; F32.9 Major depressive disorder, single episode, unspecified; T44.6X5A Adverse effect of alpha-adrenoreceptor antagonists, initial encounter; E87.6 Hypokalemia; H92.01 Otalgia, right ear; D68.32 Hemorrhagic disorder due to extrinsic circulating anticoagulants; T45.515A Adverse effect of anticoagulants, initial encounter; Z79.899 Other long term (current) drug therapy; Z79.01 Long term (current) use of anticoagulants; Z87.891 Personal history of nicotine dependence
CPT/HCPCS: 70450; 71045; 80048; 80053; 80307; 83735; 84443; 84484; 85025; 92960; 93005; 93306; 93880; 96361; 96374; 97802; 99218; 99285; J7030; A4216; G0378; J2405

== ENCOUNTER → 2017-08-04 11:55 | Day surgery (SDC) | payer OTHER, MEDICAID, SELFPAY ==
[2017-08-04 11:58] VITALS: BMI 26.6
[2017-08-04 12:58] LABS: Anion Gap 7 (5-15); BUN 13 mg/dL (7-18); BUN/Creat Ratio 20.8 RATIO (10-20); Calcium,Total 8.6 mg/dL (8.5-10.1); Chloride 107 mmol/L (98-107); Creatinine, Serum 0.62 mg/dL (0.55-1.02); EST Glomerular Filtration Rate 108 mL/min (>60); Est Glom Filt Rate - Afr Amer 130 mL/min (>60); Estimated Creatinine Clearance 98.77 ml/min; Glucose 96 mg/dL (74-106); Potassium 4.3 mmol/L (3.5-5.1); Sodium Level 141 mmol/L (136-145)
[2017-08-04 13:08] LABS: Pregnancy, Serum, hCG Quali. NEGATIVE Negative (0-9 Nonpreg)
--- NOTE | 2017-08-04 15:07 | PCM.OP.BLANK ---
Operative Report Date of Procedure: 08/04/17 DC cardioversion. 47-year-old lady with a history of hypertrophic cardiomyopathy atrial fibrillation symptomatic with hypotension. Patient presented to our office and had been on anticoagulation with blood pressures less than 100. The patient was brought to the noninvasive lab and underwent placement of AP pads. The patient was seen by Dr. Mccarthy of the critical care division. 200 J of synchronized DC cardioversion energy were applied with prompt reversal to sinus rhythm. Patient was interrogated afterwards and the pacemaker demonstrated normal sinus rhythm with ventricular pacing. Conclusion Successful DC cardioversion of symptomatic atrial fibrillation. Continue beta-heather and anticoagulation. We will start Norpace CR 150 mg twice a day.
--- NOTE | 2017-08-04 15:11 | PCM.OP.BLANK ---
Problem List (1) Afib Status: Acute Qualifiers: Atrial fibrillation type: paroxysmal Qualified Code(s): I48.0 - Paroxysmal atrial fibrillation (2) Hypertrophic cardiomyopathy Status: Chronic (3) Hypothyroidism Status: Chronic Qualifiers: Hypothyroidism type: acquired Qualified Code(s): E03.9 - Hypothyroidism, unspecified (4) Presence of cardiac pacemaker Status: Chronic Operative Report Date of Procedure: 08/04/17 - Conscious sedation CONSCIOUS SEDATION REPORT BRIEF HISTORY OF PRESENT ILLNESS: The patient is a 47-year-old female who presented for elective outpatient cardioversion due to underlying atrial fibrillation. Patient does have a complex past cardiac history significant for hypertrophic cardiomyopathy. Patient presented to Dr. Chaparro's outpatient office in new onset atrial fibrillation with hypotension. It was elected to proceed to cardioversion immediately. Patient did report that she a cupcake for breakfast at approximately 930. Other than feeling short of breath, which she attributed to the new A. fib, patient reports she had been of her usual health with no fever, chills, nausea, vomiting or diarrhea. Patient does report a 5-pack-year smoking history, but has never been diagnosed with COPD. Patient does report snoring and daytime fatigue. Patient denies any previous problems with sedation. PHYSICAL EXAMINATION: VITAL SIGNS: Reviewed and were acceptable. GENERAL: The patient is a female, in no apparent distress, speaking in full sentences. Patient is not obese. HEENT: Normocephalic, atraumatic. Mucous membranes are moist and pink. Good mouth opening noted. Trachea is midline. Good neck mobility. Mallampati 2 CHEST: S1, S2 irregularly irregular. No murmurs, rubs or gallops were noted. LUNGS: Clear to auscultation bilaterally without appreciable wheezes, rales or rhonchi. ABDOMEN: Soft, nontender, nondistended. Positive bowel sounds. EXTREMITIES: There is no clubbing or cyanosis. Bilateral lower extreme of the edema is present ASA Class: II DESCRIPTION OF PROCEDURE: After confirmation of informed consent, the patient's anesthesia plan was reviewed in detail. Propofol was chosen. Risks and benefits were reviewed and the patient agreed to proceed. At 2:10 PM, the patient was given his first bolus of 40 mg of propofol. The patient achieved appropriate sedation and was given a 200 J synchronized cardioversion by Dr. Chaparro, which was successful in restoring a paced rhythm. EKG was obtained. No further attempts were requested. The patient was monitored until 2:17 PM, at which time the patient reached his baseline mental status and function. The patient tolerated the procedure well. COMPLICATIONS: None ESTIMATED BLOOD LOSS: None RECOMMENDATIONS: Okay to recover in usual fashion. Code Visit 9xxxx: Other Procedure See Report - [id number]
--- NOTE | 2017-08-04 16:10 | PCM.PACRNU ---
Pacer Nurse Hospital Visit Notes: Dual Chamber Pacemaker Evaluation: Interrogation completed at bedside in process laboratory specialist post DCC. Interrogation show pt in Psynchronous paced rhythm @ 75 ppm. Battery longevity approx 9 yrs.Lead impedances, sensing and pace/sense thresholds remain stable. No parameter changes made. Counters cleared. Remote psicofxp box ordered to ship to pt's home and enrolled in psicofxp website so can monitor from home when pt goes into atrial fib. Pt also being started on Norpace. Genny Cherry RN - Pacer Check Procedure Procedures: 03135 PM Eval Dual
== END ==
PROVIDERS: Family Provider Student in an Organized Health Care Education/Training Program; PCP Student in an Organized Health Care Education/Training Program; Visit Provider Internal Medicine Cardiovascular Disease
DX: I48.0 Paroxysmal atrial fibrillation (principal); I42.2 Other hypertrophic cardiomyopathy; E03.9 Hypothyroidism, unspecified; Z95.0 Presence of cardiac pacemaker; Z87.891 Personal history of nicotine dependence
CPT/HCPCS: 80048; 84703; 92960; 93005; J7040

== ENCOUNTER 2017-09-11 06:25 | Emergency (ER) | payer OTHER, MEDICAID, SELFPAY ==
[2017-09-11 06:26] VITALS: BP 130/92; PULSE 66; RESP 18; TEMP 36.8; O2SAT 98; BMI 25.4
[2017-09-11 06:30] VITALS: BP 126/82; PULSE 63; RESP 18; O2SAT 95
--- NOTE | 2017-09-11 06:44 | CT_ITS ---
STUDY: CT ABDOMEN AND PELVIS WITHOUT CONTRAST REASON FOR EXAM: Female, 47 years old. Left flank pain RADIATION DOSAGE (If Supplied By Facility): CTDIvol = ( 7.51 ) mGy, DLP = ( 360.09 ) mGycm TECHNIQUE: Transaxial images were obtained from the dome of the diaphragm to the symphysis pubis without oral contrast, and without intravenous contrast. Sagittal and coronal images were reconstructed. Individualized dose optimization techniques were used for this CT. COMPARISON: None. FINDINGS: The lung bases are clear. The liver is normal with no dilated intrahepatic biliary radicles. The gallbladder is normal with no gallstones and no pericholecystic fluid collection or streakiness. The spleen, pancreas and both adrenals are normal. The kidneys are normal with no masses, calculi or hydronephrosis. The stomach is normal. There is no bowel distention, acute appendicitis or diverticulitis. No abnormally constricting large bowel lesions. The abdominal wall is intact. There is no ascites, free intraperitoneal air or any evidence of epiploic appendagitis. The vascular structures in the retroperitoneum are normal The bones and joints seen are normal with no osteolytic or osteoblastic changes There is no retrocrural, retroperitoneal or mesenteric adenopathy. There is no mesenteric mistiness The urinary bladder is normal.. The uterus is an IUD within its identified. A 2.6 x 2.1 cm right ovarian cyst. No abnormal left adnexal masses and no free fluid in the cul-de-sac. There is no inguinal or pelvic adenopathy and there is no inguinal hernia. CT/Abdomen/Pelvis without Cont IMPRESSION: No hydronephrosis and no abnormal calcifications in the collecting system. No acute appendicitis or diverticulitis. A 2.6 x 2.1 cm right ovarian cyst. No free fluid in the cul-de-sac. Electronically Signed: Terrence Glass, at 7:56 EDT Tel , Service support ,
[2017-09-11] MEDS: 0.9% Normal Saline 1,000 ML 1000 ML IV (06:50)
[2017-09-11] MEDS: Morphine 4 MG/ML Syringe IV (06:51)
[2017-09-11 06:52] LABS: Absolute Lymphocyte Count 1.44 X10^3/ul (0.83-4.51); Absolute Neutrophil Count 3.5 X10^3/uL (2.0-7.7); Basophil# 0.02 X10^3/uL; Basophil% 0.4 % (0-1); Eosinophil# 0.15 X10^3/uL; Eosinophils% 2.6 % (0-5); Hematocrit 39.7 % (37-47); Hemoglobin 13.8 g/dl (12.0-15.0); Lymphocyte # 1.44 X10^3/ul (4.0); Lymphocyte % 25.4 % (19-41); Mean Corp Hgb Conc 34.8 g/gl (32-36); Mean Corpuscular Hgb 29.4 pg (27.0-32.0); Mean Corpuscular Volume 84.5 fL (81-99); Mean Platelet Vol. 9.8 fl (6.2-12.0); Monocyte# 0.51 X10^3/uL; Neutrophil # 3.54 X10^3/uL (2.7-7.7); Neutrophil % 62.4 % (47-70); POSITIVE COUNT NO; POSITIVE DIFFERENTIAL NO; POSITIVE MORPHOLOGY NO; Platelet Count 179 K/mm3 (150-450); RBC Distribution Width CV 13.1 % (11.6-14.6); White Blood Count 5.7 K/mm3 (4.4-11.0)
[2017-09-11] MEDS: proMETHazine 25 MG/ML Syringe 12.5 MG IV (06:52)
[2017-09-11 07:04] LABS: Mucous, Urine 0 SEEN /hpf (<or=2+); Red Blood Cells-Urine 0 SEEN /hpf (0-5)
[2017-09-11 07:06] LABS: BUN 17 mg/dL (7-18); Creatinine, Serum 0.78 mg/dL (0.55-1.02); Glucose 83 mg/dL (74-106)
[2017-09-11 07:07] LABS: ALB/GLOB Ratio 1.3 RATIO (0.9-2.4); AST(SGOT) 24 U/L (15-37); Alanine Aminotransfer ALT/SGPT 32 U/L (13-56); Albumin, Serum 3.7 g/dL (3.2-5.0); Alkaline Phosphatase 64 U/L (45-117); Anion Gap 6 (5-15); BUN/Creat Ratio 21.8 RATIO (10-20); Calcium,Total 8.3 mg/dL (8.5-10.1); Chloride 106 mmol/L (98-107); EST Glomerular Filtration Rate 83 mL/min (>60); Est Glom Filt Rate - Afr Amer 101 mL/min (>60); Estimated Creatinine Clearance 81.67 ml/min; Globulin 2.8 g/dL (2.2-4.2); Lipase 178 U/L (73-393); Potassium 4.1 mmol/L (3.5-5.1); Protein, Total 6.5 g/dL (6.4-8.2); Sodium Level 142 mmol/L (136-145)
--- NOTE | 2017-09-11 07:08 | ED.DCSUM_ITS ---
- ER Visit Summary Date of Service: 09/11/17 Chief Complaint: [Left flank pain] History of Present Illness: The patient is a 47 F [presents the emergency department with left flank pain. It started yesterday. It is worse with movement. It waxes and wanes. This evening it got much worse. She has had nausea. She is also had constipation. No urinary symptoms. No fevers or chills. No abdominal pain no chest pain or shortness of breath she does have a history of hypertrophic cardiomyopathy as well as pacemaker defibrillator mitral valve prolapse kidney stones hypothyroid and sarcoid there was no injury] Physical Examination: [] Afebrile vital signs within acceptable limits WN WD NAD PERRL EOMI MMM NECK supple and nontender, no masses RRR no murmur rub or gallop, no peripheral edema, symmetric radial pulses CTAB no respiratory distress ABDOMEN is soft and nontender, normal bowel sounds, no distension, no rebound or guarding Left CVA tenderness SKIN is warm and dry no rashes Alert and Oriented x3, CN II-XII in tact, no motor or sensory deficits, gait normal No lymphadenopathy Test Results: [] Emergency Department Course and Treatment: [Patient was given fluids morphine and Phenergan. Screening labs and urine were obtained. CT was ordered. Patient will be signed out to oncoming physician. Differential for her includes musculoskeletal versus kidney stone as a cause of her left flank pain. I do anticipate discharge.] Treatment Plan: [] Disposition: [pending] Impression: [left flank pain] This note was generated with [employer] dictation software. It may contain incorrect words, spelling, and punctuation that were not noted in review of the chart prior to signing ED Disposition - Plan for ED Patient: Chief Complaint: Flank Pain Referrals: Maxime Caldwell DO [Primary Care Provider] -
[2017-09-11 07:09] LABS: Color, Urine Yellow (Yellow); Glucose, Dipstick Normal (Normal); Ketone-Dipstick Negative (Negative); Leukocyte Esterase-Dipstick 25 /ul (Negative); Nitrite-Dipstick Negative (Negative); Occult Blood-Urine Negative /ul (Negative); Protein-Dipstick 15 mg/dl (Negative); Urine Bilirubin Dipstick Negative (Negative); Urine Clarity Clear (Clear); Urine Urobilinogen Normal (Normal)
[2017-09-11 07:10] LABS: Pregnancy, Serum, hCG Quali. NEGATIVE Negative (0-9 Nonpreg)
[2017-09-11 07:16] LABS: Bacteria RARE /hpf (None Seen); Squamous Epithelial Cells - UA 0-5 SEEN /hpf (5-10); White Blood Cells 0-5 SEEN /hpf (0-5)
--- NOTE | 2017-09-11 08:29 | ED.VISSUMM ---
- ER Visit Summary Date of Service: 09/11/17 Chief Complaint: [] History of Present Illness: The patient is a 47 F [] Physical Examination: [] Test Results: [] Emergency Department Course and Treatment: [] Treatment Plan: [] Disposition: [] Impression: [] This note was generated with [employer] dictation software. It may contain incorrect words, spelling, and punctuation that were not noted in review of the chart prior to signing ED Disposition - Plan for ED Patient: Disposition: Home or Assisted Living Chief Complaint: Flank Pain Diagnosis: Left flank pain, Right ovarian cyst Instructions: ED Flank Pain Uncertain Cause, What Are Ovarian Cysts? Prescriptions: Ondansetron [Zofran Odt] 4 mg PO Q8H PRN PRN #10 tablet PRN Reason: Nausea Referrals: Maxime Caldwell DO [Primary Care Provider] - Yashira Green MD [STAFF PHYSICIAN] - 5-7 Days Additional Instructions: 2.6 cm right ovarian cysts.
--- NOTE | 2017-09-11 08:32 | ED.DCSUM_ITS ---
- ER Visit Summary Date of Service: 09/11/17 Chief Complaint: [] History of Present Illness: The patient is a 47 F [] Physical Examination: [] Test Results: [] Emergency Department Course and Treatment: [] Treatment Plan: [] Disposition: [] Impression: [] This note was generated with [employer] dictation software. It may contain incorrect words, spelling, and punctuation that were not noted in review of the chart prior to signing ED Disposition - Plan for ED Patient: Disposition: Home or Assisted Living Chief Complaint: Flank Pain Diagnosis: Left flank pain, Right ovarian cyst Instructions: ED Flank Pain Uncertain Cause, What Are Ovarian Cysts? Prescriptions: Ondansetron [Zofran Odt] 4 mg PO Q8H PRN PRN #10 tablet PRN Reason: Nausea Referrals: Maxime Caldwell DO [Primary Care Provider] - Yashira Green MD [STAFF PHYSICIAN] - 5-7 Days Additional Instructions: 2.6 cm right ovarian cysts.
[2017-09-11 08:48] VITALS: BP 108/70; PULSE 59; RESP 12; O2SAT 95
== END 2017-09-11 08:50 | disposition home or self-care (01) ==
PROVIDERS: Emergency Medicine; Emergency Provider Emergency Medicine; Family Provider Student in an Organized Health Care Education/Training Program; PCP Student in an Organized Health Care Education/Training Program
DX: R10.9 Unspecified abdominal pain (principal); N83.201 Unspecified ovarian cyst, right side; E03.9 Hypothyroidism, unspecified; Z87.891 Personal history of nicotine dependence; Z87.442 Personal history of urinary calculi; Z95.810 Presence of automatic (implantable) cardiac defibrillator
CPT/HCPCS: 74176; 80053; 81001; 83690; 84703; 85025; 96361; 96374; 96375; 99283; J7030; A4216

== ENCOUNTER 2017-11-18 11:55 | Emergency (ER) | payer OTHER, MEDICAID, SELFPAY ==
[2017-11-18 11:56] VITALS: BP 116/77; PULSE 76; RESP 16; TEMP 36.6; O2SAT 96; BMI 24.5
--- NOTE | 2017-11-18 14:52 | EKG12_ITS ---
Test Reason : GEN ILLNESS Blood Pressure : / mmHG Vent. Rate : 063 BPM Atrial Rate : 063 BPM P-R Int : 116 ms QRS Dur : 164 ms QT Int : 530 ms P-R-T Axes : 073 -89 090 degrees QTc Int : 542 ms Atrial-sensed ventricular-paced rhythm Abnormal ECG Confirmed by EVE PLUMMER, JAMIL ([id number]), dictionary editor YAMEL ROGERS ([id number]) on 11/22/2017 2:38:40 PM Referred By: RAVINDRA Confirmed By:JAMIL PRADO MD
--- NOTE | 2017-11-18 14:53 | VDLE_ITS ---
Reason For Study: swelling RIGHT LEFT GSV is normal. GSV is normal. CFV is compressible, spontaneous, phasic, CFV is compressible, spontaneous, phasic, competent and demonstrates normal competent, and demonstrates normal augmentation. augmentation. FV is compressible, spontaneous, phasic, FV is compressible, spontaneous, phasic, competent and demonstrates normal competent and demonstrates normal augmentation. augmentation. POP V is compressible, spontaneous, phasic, POP V is compressible, spontaneous, phasic, competent and demonstrates normal competent and demonstrates normal augmentation. augmentation. T/P Trunk is compressible. T/P Trunk is compressible. PTV is compressible. PTV is compressible. RT PerV is compressible. LT PerV is compressible. Procedure Exam performed portable in ED. The exam was diagnostic. A preliminary report was called and/or faxed to Dr. Alcantar. Interpretation Summary Deep veins of the lower extremities are bilaterally patent and compressible segmentally. There is no evidence of deep vein thrombosis on either side. Valvular competence appears intact within the proximal deep venous systems bilaterally. The greater saphenous veins appear bilaterally patent and compressible segmentally. Ordering Physician: Carlos A Alcantar Performed By: Remington Marks RVT
[2017-11-18 15:19] LABS: Absolute Lymphocyte Count 1.19 X10^3/ul (0.83-4.51); Basophil# 0.02 X10^3/uL; Basophil% 0.3 % (0-1); Eosinophil# 0.11 X10^3/uL; Eosinophils% 1.9 % (0-5); Lymphocyte # 1.19 X10^3/ul (4.0); Lymphocyte % 20.8 % (19-41); Mean Corp Hgb Conc 33.3 g/gl (32-36); Mean Corpuscular Hgb 28.6 pg (27.0-32.0); Mean Corpuscular Volume 85.9 fL (81-99); Mean Platelet Vol. 9.2 fl (6.2-12.0); Monocyte# 0.41 X10^3/uL; Monocyte% 7.2 % (0-10); Neutrophil # 3.99 X10^3/uL (2.7-7.7); Neutrophil % 69.8 % (47-70); Platelet Count 177 K/mm3 (150-450); RBC Distribution Width CV 13.1 % (11.6-14.6); RBC Distribution Width SD 41.6 fl (35.1-43.9); Red Blood Count 4.89 M/mm3 (4.2-5.4); White Blood Count 5.7 K/mm3 (4.4-11.0)
[2017-11-18 15:21] LABS: POSITIVE COUNT NO; POSITIVE DIFFERENTIAL NO; POSITIVE MORPHOLOGY NO
--- NOTE | 2017-11-18 15:30 | ED.DCSUM_ITS ---
- ER Visit Summary Date of Service: 11/18/17 Chief Complaint: Leg swelling History of Present Illness: The patient is a 47 F presents to the emergency department with bilateral lower extremity swelling. The patient does have a history of atrial fibrillation. She is status post pacemaker placement. She is already on Xarelto. She states that she recently traveled and was on an airplane for 6 hours. She states that she noted some bruising in her lower extremity on the back of the right. She states her legs were also swollen. She has had no chest pain or dyspnea. She did admit to some mild upper back pain, but is not worse with exertion or breathing. She denies any hemoptysis. She denies any abdominal pain. Physical Examination: Vital signs reviewed General: Well-nourished, well-developed Head: Normocephalic, atraumatic Eyes: Pupils equal and reactive, extraocular muscles intact Neck, supple, no lymphadenopathy Heart: Regular rate and rhythm Respiratory: No distress, clear bilaterally Abdomen: Soft, nontender, nondistended, no peritoneal signs Back: Nontender Extremities: Nontender, no edema, no cords Skin: Normal color no rash Neuro: Alert and oriented, no focal or lateralizing deficits Test Results: [] Emergency Department Course and Treatment: The patient presents with bilateral lower extremity swelling that has improved. She does have bruising in the posterior right leg that is only about 2 cm. It is nontender. She has normal pulses of the lower extremities. I did obtain an EKG which demonstrated a paced rhythm. Her labs are unremarkable. Patient underwent ultrasound of bilateral lower extremities. There was no evidence of DVT. At this time, I do feel that this is more likely related to her increased exertion and travel. I do for the patient is safe for discharge. She is comfortable this plan of care will be discharged home. Treatment Plan: [] Disposition: Discharge Impression: Bilateral lower extremity edema This note was generated with [employer] dictation software. It may contain incorrect words, spelling, and punctuation that were not noted in review of the chart prior to signing ED Disposition - Plan for ED Patient: Chief Complaint: General Illness Instructions: ED Leg Swelling Bilateral Referrals: Maxime Caldwell DO [Primary Care Provider] -
[2017-11-18 15:32] LABS: Anion Gap 6 (5-15); BUN 11 mg/dL (7-18); BUN/Creat Ratio 14.6 RATIO (10-20); Calcium,Total 8.5 mg/dL (8.5-10.1); Chloride 102 mmol/L (98-107); Creatinine, Serum 0.75 mg/dL (0.55-1.02); EST Glomerular Filtration Rate 87 mL/min (>60); Est Glom Filt Rate - Afr Amer 105 mL/min (>60); Estimated Creatinine Clearance 84.94 ml/min; Glucose 84 mg/dL (74-106); Potassium 4.4 mmol/L (3.5-5.1); Sodium Level 138 mmol/L (136-145)
[2017-11-18 15:51] VITALS: BP 130/87; PULSE 78; RESP 18; O2SAT 100
== END 2017-11-18 15:52 | disposition home or self-care (01) ==
PROVIDERS: Emergency Provider Emergency Medicine; Family Provider Student in an Organized Health Care Education/Training Program; PCP Student in an Organized Health Care Education/Training Program
DX: R60.0 Localized edema (principal); I48.91 Unspecified atrial fibrillation; Z79.01 Long term (current) use of anticoagulants; Z95.0 Presence of cardiac pacemaker
CPT/HCPCS: 80048; 85025; 93005; 93970; 99284; J7030; J7040; A4216

== ENCOUNTER → 2017-12-08 14:50 | Outpatient (CLI) | payer OTHER, MEDICAID, SELFPAY ==
[2017-12-08 16:17] LABS: BNP,B-Type NATRIURETIC PEPTIDE 632.8 pg/mL (0-100)
[2017-12-08 18:37] LABS: Anion Gap 9 (5-15); BUN 17 mg/dL (7-18); BUN/Creat Ratio 20.9 RATIO (10-20); Calcium,Total 8.7 mg/dL (8.5-10.1); Chloride 104 mmol/L (98-107); Creatinine, Serum 0.82 mg/dL (0.55-1.02); EST Glomerular Filtration Rate 79 mL/min (>60); Est Glom Filt Rate - Afr Amer 96 mL/min (>60); Glucose 105 mg/dL (74-106); Potassium 3.9 mmol/L (3.5-5.1); Sodium Level 142 mmol/L (136-145)
== END ==
PROVIDERS: Nurse Practitioner Family; Family Provider Student in an Organized Health Care Education/Training Program; PCP Student in an Organized Health Care Education/Training Program; Visit Provider Internal Medicine Cardiovascular Disease
DX: R06.02 Shortness of breath (principal); R00.2 Palpitations; I48.0 Paroxysmal atrial fibrillation; I43 Cardiomyopathy in diseases classified elsewhere; I47.2 Ventricular tachycardia; E87.6 Hypokalemia
CPT/HCPCS: 36415; 80048; 83880

== ENCOUNTER 2018-02-17 10:05 | Emergency (ER) | payer OTHER, MEDICAID, SELFPAY ==
[2018-02-17 10:06] VITALS: BP 121/87; PULSE 68; RESP 15; TEMP 36.7; O2SAT 99; BMI 25.7
--- NOTE | 2018-02-17 10:21 | CT_ITS ---
STUDY: CT ABDOMEN AND PELVIS WITHOUT CONTRAST REASON FOR EXAM: Female, 47 years old. Right lower quadrant pain RADIATION DOSAGE (If Supplied By Facility): CTDIvol = ( 8.75 ) mGy, DLP = ( 413.25 ) mGycm TECHNIQUE: Transaxial images were obtained from the dome of the diaphragm to the symphysis pubis without oral contrast, and without intravenous contrast. Sagittal and coronal images were reconstructed. Individualized dose optimization techniques were used for this CT. COMPARISON: None. FINDINGS: The visualized lung bases are unremarkable. The visualized portions of the heart are within normal limits. Normal liver. Normal gallbladder and extrahepatic biliary system. Normal spleen. Normal pancreas. Normal bilateral adrenal glands. Normal right kidney. Normal left kidney. Evaluation of the GI tract is limited by absence of oral contrast. Cannot exclude stomach wall thickening. No dilated loops of bowel or evidence for obstruction. Cannot exclude segmental thickening of the cantrell of the small or large bowel. Cannot exclude enteritis or colitis. Moderate diffuse fecal retention. Appendix within normal limits. Normal abdominal aorta. Normal inferior vena cava. Normal retroperitoneum. Distended urinary bladder. Normal visualized uterus. IUD in typical location. There is a small umbilical hernia containing fat. Normal osseous structures. CT/Abdomen/Pelvis without Cont IMPRESSION: No definite acute abnormality is seen. Electronically Signed: Gary Guzman MD at 12:00 EDT , Service support ,
[2018-02-17 10:29] LABS: Color, Urine Yellow (Yellow); Glucose, Dipstick Normal (Normal); Ketone-Dipstick Negative (Negative); Leukocyte Esterase-Dipstick 25 /ul (Negative); Mucous, Urine 0 SEEN /hpf (<or=2+); Nitrite-Dipstick Negative (Negative); Occult Blood-Urine Negative /ul (Negative); Protein-Dipstick Negative (Negative); Squamous Epithelial Cells - UA 0 SEEN /hpf (5-10); Urine Bilirubin Dipstick Negative (Negative); Urine Clarity Clear (Clear); Urine Urobilinogen Normal (Normal)
[2018-02-17 10:35] LABS: Bacteria RARE /hpf (None Seen); Red Blood Cells-Urine 0-5 SEEN /hpf (0-5); White Blood Cells 0-5 SEEN /hpf (0-5)
[2018-02-17] MEDS: Ondansetron 4 MG/2 ML Vial IV (10:41)
[2018-02-17] MEDS: 0.9% Normal Saline 1,000 ML 1000 ML IV (10:41)
[2018-02-17 10:47] LABS: Absolute Lymphocyte Count 1.51 X10^3/ul (0.83-4.51); Absolute Neutrophil Count 3.8 X10^3/uL (2.0-7.7); Basophil# 0.05 X10^3/uL; Basophil% 0.8 % (0-1); Eosinophils% 1.7 % (0-5); Hematocrit 41.8 % (37-47); Hemoglobin 14.8 g/dl (12.0-15.0); Lymphocyte # 1.51 X10^3/ul (4.0); Lymphocyte % 25.4 % (19-41); Mean Corp Hgb Conc 35.4 g/gl (32-36); Mean Corpuscular Hgb 29.8 pg (27.0-32.0); Mean Corpuscular Volume 84.3 fL (81-99); Mean Platelet Vol. 9.6 fl (6.2-12.0); Monocyte# 0.53 X10^3/uL; Monocyte% 8.9 % (0-10); Neutrophil # 3.75 X10^3/uL (2.7-7.7); Neutrophil % 63.2 % (47-70); Platelet Count 204 K/mm3 (150-450); RBC Distribution Width CV 12.5 % (11.6-14.6); RBC Distribution Width SD 37.7 fl (35.1-43.9); Red Blood Count 4.96 M/mm3 (4.2-5.4); White Blood Count 5.9 K/mm3 (4.4-11.0)
[2018-02-17 10:50] LABS: POSITIVE COUNT NO; POSITIVE DIFFERENTIAL NO; POSITIVE MORPHOLOGY NO
[2018-02-17 11:00] LABS: ALB/GLOB Ratio 1.3 RATIO (0.9-2.4); AST(SGOT) 18 U/L (15-37); Alanine Aminotransfer ALT/SGPT 22 U/L (13-56); Alkaline Phosphatase 71 U/L (45-117); Anion Gap 7 (5-15); BUN 11 mg/dL (7-18); BUN/Creat Ratio 13.2 RATIO (10-20); Calcium,Total 8.6 mg/dL (8.5-10.1); Chloride 100 mmol/L (98-107); Creatinine, Serum 0.84 mg/dL (0.55-1.02); EST Glomerular Filtration Rate 77 mL/min (>60); Est Glom Filt Rate - Afr Amer 93 mL/min (>60); Estimated Creatinine Clearance 75.84 ml/min; Globulin 3.1 g/dL (2.2-4.2); Glucose 90 mg/dL (74-106); Potassium 3.8 mmol/L (3.5-5.1); Protein, Total 7.1 g/dL (6.4-8.2); Sodium Level 136 mmol/L (136-145)
[2018-02-17 11:10] LABS: Lactic Acid 0.7 mmol/L (0.4-2.0)
--- NOTE | 2018-02-17 12:10 | US_ITS ---
STUDY: ULTRASOUND OF THE FEMALE PELVIS - COMPLETE REASON FOR EXAM: Female, 47 years old. Right pelvic pain LMP: TECHNIQUE: TECHNICAL QUALITY: Adequate. COMPARISON: CT scan of the same day.. FINDINGS: The uterus is anteverted and is in a midline position. The uterus measures 7.5 x 4.4 x 3.5 cm. There is a Nabothian cyst of the cervix. The endometrium measures 3 mm in thickness, and is hyperechoic. There is no demonstrated endometrial mass. There is no demonstrated myometrial mass. I.U.D. - The patient does not have an I.U.D. The right ovary is visualized. The right ovary measures 3.6 x 3.2 x 2.7 cm. There is a 2.6 cm cyst. There is no visualized right adnexal mass or complex lesion. There is normal arterial and normal venous vascularity. The left ovary is non-visualized. There is no fluid in the cul-de-sac. US/Pelvic (Non ) IMPRESSION: 2.6 cm right ovarian cyst. Left ovary is not seen. Electronically Signed: Gary Guzman MD at 15:43 EDT , Service support ,
[2018-02-17 12:19] VITALS: BP 119/74; PULSE 62; RESP 15; O2SAT 98
--- NOTE | 2018-02-17 14:00 | US_ITS ---
STUDY: ULTRASOUND OF THE FEMALE PELVIS - COMPLETE REASON FOR EXAM: Female, 47 years old. Right pelvic pain LMP: TECHNIQUE: TECHNICAL QUALITY: Adequate. COMPARISON: CT scan of the same day.. FINDINGS: The uterus is anteverted and is in a midline position. The uterus measures 7.5 x 4.4 x 3.5 cm. There is a Nabothian cyst of the cervix. The endometrium measures 3 mm in thickness, and is hyperechoic. There is no demonstrated endometrial mass. There is no demonstrated myometrial mass. I.U.D. - The patient does not have an I.U.D. The right ovary is visualized. The right ovary measures 3.6 x 3.2 x 2.7 cm. There is a 2.6 cm cyst. There is no visualized right adnexal mass or complex lesion. There is normal arterial and normal venous vascularity. The left ovary is non-visualized. There is no fluid in the cul-de-sac. US/Transvaginal Non- IMPRESSION: 2.6 cm right ovarian cyst. Left ovary is not seen. Electronically Signed: Gary Guzman MD at 15:43 EDT , Service support ,
[2018-02-17 14:46] VITALS: BP 108/57; PULSE 69; RESP 15; O2SAT 97
--- NOTE | 2018-02-17 15:38 | ED.VISSUMM ---
- ER Visit Summary Date of Service: 02/17/18 Chief Complaint: [] History of Present Illness: The patient is a 47 F [abdominal pain presents the emergency department complaint of abdominal pain that started 2 days ago. Patient complains of nausea and vomiting. Patient's had diarrhea off and on for the last several weeks. Patient states she has not vomited since yesterday. She has had decreased appetite. She comes in complaining of right lower quadrant abdominal pain. Patient was seen at urgent care and sent to the ER for evaluation. Patient does have a history of A. fib, V. tach, depression, hypothyroidism. Surgical history includes oophorectomy patient is not sure which side, , tubal ligation, and pacemaker placement. She denies urinary symptoms.] Physical Examination: [HEENT-PERRLA, EOMI. Cranial nerves II through XII grossly intact. TMs clear. Mucous membranes moist. No adenopathy. Cardiovascular-regular rate and rhythm without murmur or ectopy Lungs-clear to auscultation, chest wall stable without crepitus or subcu emphysema Abdomen-normoactive bowel sounds, soft. Patient has tenderness palpation over right lower quadrant with some guarding. There is no rebound, rigidity, or perineal signs. Extremities-intact ?4, normal range of motion, normal pulses, atraumatic] Test Results: [CBC with differential obtained was normal. Chemistries were normal. LFTs were normal. Urinalysis was normal. CT flank showed a normal appendix otherwise nothing acute.] Pelvic ultrasound obtained showed a 2.5 cm ovarian cyst on the right without any evidence of torsion. Emergency Department Course and Treatment: [Patient was given normal saline in the emergency department and treated with Toradol. Patient also treated with morphine and Zofran.] Treatment Plan: [Patient will be given a prescription for Zofran and she did not want anything for pain for home.] Disposition: [Discharged home stable condition] Impression: [Abdominal pain Right ovarian cyst Gastroenteritis] This note was generated with [employer] dictation software. It may contain incorrect words, spelling, and punctuation that were not noted in review of the chart prior to signing ED Disposition - Plan for ED Patient: Chief Complaint: Abd Pain Referrals: Maxime Caldwell DO [Primary Care Provider] -
--- NOTE | 2018-02-17 15:53 | ED.DEP ---
ED Disposition - Plan for ED Patient: Chief Complaint: Abd Pain Instructions: ED Abdominal Pain Unkn Cause, ED Cyst Ovarian, ED Gastroenteritis Viral Prescriptions: Ondansetron [Zofran Odt] 4 mg PO Q8H PRN PRN #10 tab PRN Reason: Nausea Referrals: Maxime Caldwell DO [Primary Care Provider] - 3-5 Days
[2018-02-17 15:57] VITALS: BP 118/75; PULSE 69; RESP 16; O2SAT 98
== END 2018-02-17 16:00 | disposition home or self-care (01) ==
LOC: ED 10:28
PROVIDERS: Emergency Provider Emergency Medicine; Family Provider Student in an Organized Health Care Education/Training Program; PCP Student in an Organized Health Care Education/Training Program
DX: R10.9 Unspecified abdominal pain (principal); N83.201 Unspecified ovarian cyst, right side; K52.9 Noninfective gastroenteritis and colitis, unspecified; E03.9 Hypothyroidism, unspecified; I48.91 Unspecified atrial fibrillation; F32.9 Major depressive disorder, single episode, unspecified; Z95.0 Presence of cardiac pacemaker; Z98.51 Tubal ligation status
CPT/HCPCS: 74176; 76830; 76856; 80053; 81001; 83605; 85025; 93976; 99283; J7030; A4216; J2405

== ENCOUNTER 2018-03-24 22:21 | Emergency (ER) | payer OTHER, MEDICAID, SELFPAY ==
[2018-03-24] VITALS (7 sets, daily range): BP systolic 97–150; BP diastolic 71–96; PULSE 99–128; RESP 16–20; TEMP 36.6; O2SAT 99–100; BMI 25.6
--- NOTE | 2018-03-24 22:57 | EKG12_ITS ---
Test Reason : Blood Pressure : / mmHG Vent. Rate : 128 BPM Atrial Rate : 107 BPM P-R Int : 000 ms QRS Dur : 098 ms QT Int : 374 ms P-R-T Axes : 000 071 -88 degrees QTc Int : 546 ms Atrial fibrillation with rapid ventricular response Marked ST abnormality, possible inferior subendocardial injury Abnormal ECG Confirmed by KISHORE THOMAS ([id number]), map editor YAMEL ROGERS ([id number]) on 03/28/2018 2:18:50 PM Referred By: EFRAIN Confirmed By:KISHORE THOMAS
--- NOTE | 2018-03-24 22:59 | ED.VISSUMM ---
- ER Visit Summary Date of Service: 03/24/18 Chief Complaint: Shortness of breath, irregular heart rate History of Present Illness: The patient is a 48 F with a history of paroxysmal atrial fibrillation, she is on Xarelto daily, presents with acute onset of atrial fibrillation. She has not had this for 6 or 7 months. Apparently she has been in sinus rhythm since until about an hour and a half ago. She feels palpitations and shortness of breath. Physical Examination: She appears in some distress Moist mucous membranes, no obvious facial deformity No C-spine tenderness supple neck. Irregular tachycardia without any obvious murmurs Clear lungs bilaterally speaking in full sentences without any obvious respiratory distress Abdomen soft and nontender no guarding or rebound Moves all extremities without any difficulty or pain. Skin does not show any obvious rashes or lesions, no trauma. Alert oriented ?3 with no gross focal deficit Emergency Department Course and Treatment: Patient tells me she takes her Xarelto every single day and does not miss any doses. Decision was made to cardiovert. Procedural sedation was done prior to this, I used 70 mg of ketamine and 1 mg of Versed. Synchronized cardioversion at 100 J was performed by me. Patient converted to her usual paced rhythm which is atrial sensed and ventricular paced rhythm. She was observed improved and will be discharged home. Discharge in stable condition Impression: Atrial fibrillation with RVR Procedural sedation by emergency physician Cardioversion by emergency physician This note was generated with [employer] dictation software. It may contain incorrect words, spelling, and punctuation that were not noted in review of the chart prior to signing ED Disposition - Plan for ED Patient: Disposition: Home or Assisted Living Chief Complaint: Shortness of Breath Referrals: Tree Chaparro MD [STAFF PHYSICIAN] - 3-5 Days
[2018-03-24 23:10] LABS: Absolute Lymphocyte Count 2.42 X10^3/ul (0.83-4.51); Absolute Neutrophil Count 4.4 X10^3/uL (2.0-7.7); Basophil# 0.03 X10^3/uL; Basophil% 0.4 % (0-1); Eosinophil# 0.18 X10^3/uL; Eosinophils% 2.4 % (0-5); Hemoglobin 14.5 g/dl (12.0-15.0); Lymphocyte # 2.42 X10^3/ul (4.0); Mean Corp Hgb Conc 33.7 g/gl (32-36); Mean Corpuscular Hgb 29.2 pg (27.0-32.0); Mean Corpuscular Volume 86.7 fL (81-99); Mean Platelet Vol. 10.3 fl (6.2-12.0); Monocyte% 6.6 % (0-10); Neutrophil # 4.42 X10^3/uL (2.7-7.7); Neutrophil % 58.5 % (47-70); Platelet Count 191 K/mm3 (150-450); RBC Distribution Width CV 12.8 % (11.6-14.6); Red Blood Count 4.96 M/mm3 (4.2-5.4); White Blood Count 7.6 K/mm3 (4.4-11.0)
[2018-03-24 23:12] LABS: POSITIVE COUNT NO; POSITIVE DIFFERENTIAL NO; POSITIVE MORPHOLOGY NO
[2018-03-24] MEDS: 0.9% Normal Saline 1,000 ML 1000 ML IV (23:19)
[2018-03-24 23:25] LABS: ALB/GLOB Ratio 1.3 RATIO (0.9-2.4); AST(SGOT) 17 U/L (15-37); Alanine Aminotransfer ALT/SGPT 22 U/L (13-56); Albumin, Serum 4.1 g/dL (3.2-5.0); Alkaline Phosphatase 68 U/L (45-117); Anion Gap 6 (5-15); BUN 13 mg/dL (7-18); Calcium,Total 8.6 mg/dL (8.5-10.1); Chloride 102 mmol/L (98-107); Creatinine, Serum 0.81 mg/dL (0.55-1.02); EST Glomerular Filtration Rate 79 mL/min (>60); Est Glom Filt Rate - Afr Amer 96 mL/min (>60); Estimated Creatinine Clearance 77.79 ml/min; Globulin 3.2 g/dL (2.2-4.2); Glucose 114 mg/dL (74-106); Potassium 4.1 mmol/L (3.5-5.1); Protein, Total 7.3 g/dL (6.4-8.2); Sodium Level 137 mmol/L (136-145)
[2018-03-24] MEDS: Ketamine HCl 500 MG/5 ML Vial 72 MG IV (23:41)
[2018-03-24] MEDS: Midazolam 2 MG/2 ML Syringe IV (23:43)
--- NOTE | 2018-03-24 23:50 | EKG12_ITS ---
Test Reason : REPEAT Blood Pressure : / mmHG Vent. Rate : 085 BPM Atrial Rate : 085 BPM P-R Int : 132 ms QRS Dur : 164 ms QT Int : 492 ms P-R-T Axes : 075 -85 090 degrees QTc Int : 585 ms Atrial-sensed ventricular-paced rhythm Abnormal ECG Confirmed by KISHORE THOMAS ([id number]), development editor YAMEL ROGERS ([id number]) on 03/28/2018 2:19:07 PM Referred By: SHAYNA Confirmed By:KISHORE THOMAS
[2018-03-25 00:21] VITALS: BP 142/96; PULSE 89; RESP 16; O2SAT 100
[2018-03-25 00:22] VITALS: BP 142/96; O2SAT 100
[2018-03-25 00:42] VITALS: BP 118/78; PULSE 80; RESP 16; O2SAT 99
[2018-03-25 01:17] VITALS: PULSE 78; RESP 16; O2SAT 98
== END 2018-03-25 01:25 | disposition home or self-care (01) ==
PROVIDERS: Emergency Provider Emergency Medicine; Family Provider Student in an Organized Health Care Education/Training Program; PCP Student in an Organized Health Care Education/Training Program
DX: I48.0 Paroxysmal atrial fibrillation (principal)
CPT/HCPCS: 80053; 85025; 92960; 93005; 96361; 96374; 99285; J7030; A4216

== ENCOUNTER 2018-04-25 11:43 | Day surgery (SDC) | payer OTHER, MEDICAID, SELFPAY ==
[2018-04-12 14:49] VITALS: BMI 25.7
--- NOTE | 2018-04-23 08:20 | PCM.HP.BLA ---
History and Physical Date of Admission: 04/25/18 Juliane Ortega a 48 year old female who is referred by Dr. Caldwell?for a screening colonoscopy. The patient has not?been seen previously. The patient denies?a family?history of colon cancer. ?Her of colon cancer three years ago. ? The patient was seen by Dr. Caldwell on 01/04/18 for a 6 month visit, leading to this referral. 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 ??CT abd/pelvis without nephrolithiasis or hydronephrosis, ?Did show T11/T12 degenerative disc changes. ??Symptoms are intermittent mostly with moving. ? The patient saw Maegan Britt NP, on 02/17 and again on 02/22 for abdominal pain. Those notes have been reviewed. Nausea, vomiting, intermittent diarrhea.....03/08/2018 encounters. ? The patient has an pacemaker. ?She sees Dr. Green. ?She is taking Xarelto for A fib. ? The patient was seen at [facility] ED on 02/17/18. That encounter has been reviewed: History of Present Illness: The patient is a 47 F [abdominal pain presents the emergency department complaint of abdominal pain that started 2 days ago. ?Patient complains of nausea and vomiting. ?Patient's had diarrhea off and on for the last several weeks. ?Patient states she has not vomited since yesterday. ?She has had decreased appetite. ?She comes in complaining of right lower quadrant abdominal pain. ?Patient was seen at urgent care and sent to the ER for evaluation. ?Patient does have a history of A. fib, V. tach, depression, hypothyroidism. ?Surgical history includes oophorectomy patient is not sure which side, , tubal ligation, and pacemaker placement. ?She denies urinary symptoms.] ? Physical Examination: [HEENT-PERRLA, EOMI. ?Cranial nerves II through XII grossly intact. ?TMs clear. ?Mucous membranes moist. ?No adenopathy. Cardiovascular-regular rate and rhythm without murmur or ectopy Lungs-clear to auscultation, chest wall stable without crepitus or subcu emphysema Abdomen-normoactive bowel sounds, soft. ?Patient has tenderness palpation over right lower quadrant with some guarding. ?There is no rebound, rigidity, or perineal signs. Extremities-intact ?4, normal range of motion, normal pulses, atraumatic] ? Test Results: [CBC with differential obtained was normal. ?Chemistries were normal. ?LFTs were normal. ?Urinalysis was normal. ?CT flank showed a normal appendix otherwise nothing acute.] ?Pelvic ultrasound obtained showed a 2.5 cm ovarian cyst on the right without any evidence of torsion. ? Emergency Department Course and Treatment: [Patient was given normal saline in the emergency department and treated with Toradol. ?Patient also treated with morphine and Zofran.] ? Treatment Plan: [Patient will be given a prescription for Zofran and she did not want anything for pain for home.] ? Disposition: [Discharged home stable condition] ? Impression: [Abdominal pain Right ovarian cyst Gastroenteritis] ? ? STUDY: ?CT ABDOMEN AND PELVIS WITHOUT CONTRAST??02/17/18 REASON FOR EXAM: ??Female, 47 years old. ?Right lower quadrant pain RADIATION DOSAGE (If Supplied By Facility): ?CTDIvol = ( 8.75 ) mGy, DLP = ( 413.25 ) mGycm ? TECHNIQUE: ??Transaxial images were obtained from the dome of the diaphragm to the symphysis pubis without oral contrast, and without intravenous contrast. ?Sagittal and coronal images were reconstructed. ? Individualized dose optimization techniques were used for this CT. ? COMPARISON: ??None. ? FINDINGS: The visualized lung bases are unremarkable. ?The visualized portions of the heart are within normal limits. ? Normal liver. ?Normal gallbladder and extrahepatic biliary system. ?Normal spleen. ?Normal pancreas. ? Normal bilateral adrenal glands. ? Normal right kidney. ?Normal left kidney. ? Evaluation of the GI tract is limited by absence of oral contrast. Cannot exclude stomach wall thickening. No dilated loops of bowel or evidence for obstruction. Cannot exclude segmental thickening of the cantrell of the small or large bowel. ?Cannot exclude enteritis or colitis. Moderate diffuse fecal retention. Appendix within normal limits. ? Normal abdominal aorta. ?Normal inferior vena cava. ?Normal retroperitoneum. ? Distended urinary bladder. ?Normal visualized uterus. IUD in typical location. ? There is a small umbilical hernia containing fat. ?Normal osseous structures. CT/Abdomen/Pelvis without Cont IMPRESSION: No definite acute abnormality is seen. ? EXAMINATION: ?CT ABDOMEN WITH IV CONTRAST 03/04/18 CLINICAL HISTORY: Nausea. ?Upper abdominal pain. TECHNIQUE: CT of the abdomen was performed using standard technique, scanning from just above the dome of the diaphragm to the iliac crest. MQ: ?CTAbdW_4 Contrast: IV: ?148 ml of Omnipaque 300 Oral: ?50 ml of 50ML Omnipaque [address] Radiation dose: Integrated Dose-length product (DLP) for this visit = ? 274 mGy*cm. CT Dose Reduction Employed: Automated exposure control(AEC) and iterative recon COMPARISON: 06/03/2017 and 10/19/2014 RESULT: Liver: No mass. Biliary: Mild extrahepatic ductal dilatation measuring up to 9 mm, unchanged compared to prior studies. ?Gallbladder is unremarkable. Spleen: No mass. No splenomegaly. Pancreas: No mass or duct dilation. Adrenals:No mass. Kidneys: No mass, calculus or hydronephrosis. GI tract: No dilation or wall thickening. Lymph nodes: No abdominal lymphadenopathy. Mesentery/Peritoneum: No ascites or mass. Retroperitoneum: No mass. Vasculature: ?The celiac axis and SMA are patent. The portal vein and branches, splenic vein, SMV, and hepatic veins are patent. ?No abdominal aortic or iliac artery aneurysm. Bones/Soft Tissues: No significant finding. Lower thorax: Unremarkable. ? IMPRESSION: No acute abnormality ? We have reviewed the CT report. ? ? Presenting complaint: The patient presents today stating I have belly pain right here when I push on it,?it's sore. She is able to point to the location with 2 fingers - lower RUQ, toward mid line. ?She goes on to say what started this was that I had the flu, then 3 days later I had horrible horrible pain, and couldn't even touch my belly. Recent CT negative - but still an awareness of soreness. ?She notes that having a bowel movement usually gives relief. ? The patient also reports feeling bloated. ?Ok in the morning, but worse as the day goes on. She is lactose intolerant - she avoids it. ?Using almond milk. ? The patient reports nausea and vomiting prior to the ED visit above. That has passed. ?Appetite improving. ?She reports mild heartburn as well as indigestion. ?Occasional use of TUMs. ? The patient reports that she has intermittent diarrhea that can be urgent and explosive. ?She notes having mucus with the diarrhea and?a rust color stool. Other bowel movements are normal color and soft form. ??No fresh appearing blood. ?No black stool. ? ? REVIEW OF SYSTEMS: GENERAL: No unplanned weight loss. RESPIRATORY: Sarcoid- no residual effect. ?Negative for cough, hemoptysis, wheezing, COPD, dyspnea or shortness of breath CARDIOVASCULAR: Pacemaker &?A fib. ?Sees Peter. GI: The patient states that her appetite has been improving. ?She does?get hungry. There had?been some?nausea and?vomiting. She denies?dysphagia and denies?odynophagia. There has ?been indigestion with?heartburn. There has not?been regurgitation. Bowel habits have been irregular. There has ?been diarrhea. There has not?been constipation. The patient denies?rectal bleeding. There has not?been melena. Intermittent abdominal pain that is located in the right upper?quadrant. PROPERTY MANAGER: Negative for abnormal vaginal bleeding, abnormal vaginal discharge. ?LMP: 7-8 yrs. PSYCH: Negative for sleep disturbance, mood disorder and recent psychosocial stressors. HEMATOLOGY/LYMPHOLOGY: ?On Xarelto. ENDOCRINE: Hypothyroid. NEURO: ?No history of significant headaches, syncope, paralysis, seizures or tremors. All other reviewed and negative other than HPI. ? ? PAST MEDICAL HISTORY PAST MEDICAL HISTORY Diagnosis Date ? Encounter for insertion or removal of intrauterine contraceptive device 06/2006 ? Mirena ? Excessive or frequent menstruation ? ? Hypertr obst cardiomyop ? ? Dr. Chaparro Controlled Atmospheric Furnace Brazer, paroxysmal Afib, + pacemaker ? Hypoglycemia, unspecified ? ? Hypothyroidism 07/30/2014 ? kidney stones ? ? MVP ? ? severe ? Other and unspecified ovarian cyst ? ? RUPTURED WITH HEMOPERITONEUM ? PMH - PAST MEDICAL HISTORY OF ? ? PELVIC PAIN ? Sarcoidosis 2014 ? 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 Shingles ? ? ? PAST SURGICAL HISTORY PAST SURGICAL HISTORY Procedure Laterality Date ? DELIVERY ONLY ? ? ? X2 ? L'SCOPE REM ADNEX W/PART/TOT OOPH/SALP ? 02/02/13 ? RSO, left ovarian bx and cystectomy ? LIGATE FALLOPIAN TUBE ? ? ? Tubal ligation ? MIRENA IUD ? 06/2006 ? PAST SURGICAL HISTORY OF ? 2002,03/2007(current device) ? 2006- removal of fx lead+PACEMAKER/ICD implant(Medtronic [id number]/ SN [id number] ? ? PAST SURGICAL HISTORY OF ? 1993 ? CRYOCAUTERY/DYSPLASIA ? PAST SURGICAL HISTORY OF ? 2006 ? defibrillator, pacemaker ? [place] ANESTH,PACEMAKER INSERTION ? 1998 ? Permanent Pacemaker ? ? FAMILY HISTORY FAMILY HISTORY Problem Relation Age of Onset ? Hypertension Mother ? ? Cancer Mother ?MELENOMA ? Hypertension Father ? ? Diabetes Father ? ? Cancer Father ?PROSTATE ? Heart Father ?THORACIC AORTIC ANEURYSM, small VSD ? Heart Maternal Grandmother ?enlarged heart dx in her 40's,lived until 87 ? Stroke Maternal Grandmother ? ? Breast Cancer Maternal Grandmother ? ? Aneurysm Maternal Grandmother ? ? Heart Maternal Grandfather ?galloping heart rate ? Hypertension Paternal Grandmother ? ? Diabetes Paternal Grandmother ? ? Cancer Paternal Grandfather ?COLON/PROSTATE ? Aneurysm Paternal Grandfather ? ? Heart Brother ?murmur(both brothers ? other (Other) Other ?No process control manager/breast cancer ? ? CURRENT MEDICATIONS ? Current Outpatient Prescriptions: furosemide (LASIX ORAL) Take by mouth as needed. Disp: Rfl: disopyramide phosphate (NORPACE) 100 mg capsule Take 2 capsules by mouth twice daily. Disp: Rfl: polyethylene glycol 3350 (MIRALAX, GLYCOLAX) 17 gram packet Take 1 Packet by mouth once daily. (Patient taking differently: Take 17 g by mouth once daily. As needed ) Disp: Rfl: PARoxetine (PAXIL) 10 mg tablet Take 1 tablet by mouth once daily. Disp: 30 tablet Rfl: 12 levonorgestrel (MIRENA) 20 mcg/24 hr (5 years) IUD 1 Each by INTRAUTERINE route continuous. Disp: Rfl: buPROPion XL (WELLBUTRIN XL) 150 mg 24 hr tablet Take 1 tablet by mouth once daily. Disp: 90 tablet Rfl: 3 levothyroxine (SYNTHROID) 112 mcg tablet TAKE ONE TABLET BY MOUTH ONCE DAILY ON EMPTY STOMACH FOR THYROID Disp: 90 tablet Rfl: 3 tamsulosin ER (FLOMAX) 0.4 mg cp24 Take 1 capsule by mouth daily at bedtime. As needed for kidney stone/flank pain Disp: 30 capsule Rfl: 1 rivaroxaban (XARELTO) 10 mg tablet Take 10 mg by mouth once daily. Disp: Rfl: albuterol HFA (VENTOLIN HFA) 90 mcg/actuation inhaler Inhale 2 Puffs as instructed every 4 hours as needed for Wheezing/Shortness of Breath. Disp: 1 Inhaler Rfl: 3 metoprolol succinate(TOPROL XL 50 MG 24 HR TAB) Take one(1) tablet two(2) times daily. Disp: Rfl: 0 MULTIVITAMIN TAB Take one(1) tablet daily. Disp: Rfl: 0 COENZYME Q10 60 MG CAP Take one(1) tablet daily. Disp: Rfl: 0 ? No current facility-administered medications for this visit. ? ? SOCIAL HISTORY: Patient is . She has never smoked and reports her alcohol use as occasionally having beer or wine. ? ? PHYSICAL EXAMINATION: Blood pressure 121/79, pulse 74, height 167.6 cm (5' 6), weight 73.5 kg (162 lb). General Appearance: Well appearing, alert, in no acute distress, well-hydrated, well nourished.. Skin: Skin color, texture, turgor normal, no suspicious rashes or lesions. Head: Normocephalic, no masses, lesions, tenderness or abnormalities. Eyes: Anicteric sclera. Pupils are equally round and reactive to light. ?Extraocular movements are intact. . Lungs: Lungs clear to auscultation. No wheezing, rhonchi, rales. Heart: RRR with 2-3/6?murmur. Abdomen: Abdomen soft, mild tenderness to palpation RUQ - just above mid line. ?Non-tender otherwise. Bowel sounds normal. No masses, organomegaly. Extremities: No deformities, edema, skin discoloration, clubbing or cyanosis. Good capillary refill. . Peripheral Pulses: Normal. ? ? Impression: dyspepsia ?2)colorectal cancer screening ?3)RUQ pain ? ? Plan: The patient will be scheduled for an upper endoscopy and?colonoscopy, but Dr. Perdue. ?She has a pacemaker, so needs to be done at a hospital. 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 ?The risks, benefits, anticipated outcomes and possible complications were mentioned. I explained the procedure in understandable terms and the patient was given printed material concerning the planned procedure. The patient had the opportunity to ask questions concerning the planned procedure. The patient freely consents to the planned procedure. ? ? The patient may stay on the Xarelto since Dr. Perdue will be doing the procedure. ? The patient is encouraged to call with any questions or concerns, or should there be any change ?in health status between now and the scheduled procedure. ? I have personally interviewed and examined this patient. ?I have read the information that the MA?documented in this encounter. I spent 30?minutes in the visit, with more than 50% of the total [id number] time of the visit in counseling / coordination of care. ?? Melany Strickland RN APRN.RESTAURANT MAINTENANCE TECHNICIAN ?6:11 PM
--- NOTE | 2018-04-25 | IMM_PTH ---
PATIENT: ISAURO CURRAN LOC: EN U#:[id number] AGE/SX: 48/F ROOM: RE04/25/[address]: Dr. Erick Perdue MD : 1970 BED: DIS: 04/25/2018 SPEC #: [id number] RECD: 04/26/18 14:05 STATUS: JONATHAN RESue #: [id number] ARLEEN: 04/25/18 00:[address]: Erick Perdue DEPT: IMMUNOHISTOCHEMISTRY RECD BY: Laura Singh ENTERED: 04/26/18 14:05 SP TYPE: IMMUNO OTHR DR: Dr. Maxime Caldwell DO Tissues: B - Stomach, NOS Procedures: H Pylori (initial) PHYSICIAN & INSTITUTION [place] [id number] SPECIMEN INFORMATION: Tissue Source: B - Antrum biopsy Clinical Info: Abdomen pain, screening Specimen Number: [id number] CPT code: 63095 METHODOLOGY: Deparaffinized sections of prefer/formalin-fixed tissue or PAP/DQ stained slides are incubated with monoclonal/polyclonal antibodies/oligonucleotide probes. Localization is made via biotin free immunoperoxidase method. Appropriate controls are performed and reacted as expected. Results on target cell population are indicated in the following table: RESULTS: ANTIBODY / CLONE RESULT Block B H Pylori (polyclonal) negative These tests were developed and their performance characteristics determined by [facility]. They may not have been cleared or approved by the U.S. Food and Drug Administration. The FDA has determined that such clearance or approval is not necessary. INTERPRETATION: B. Antrum, biopsy: Negative for Helicobacter pylori organisms. SJ:patrice 04/27/18
--- NOTE | 2018-04-25 | EGD_PTH ---
PATIENT: ISAURO CURRAN LOC: EN U#:[id number] AGE/SX: 48/F ROOM: RE04/25/[address]: Dr. Erick Perdue MD : 1970 BED: DIS: 04/25/2018 SPEC #: [id number] RECD: 04/25/18 16:29 STATUS: JONATHAN LAVON #: [id number] ARLEEN: 04/25/18 00:[address]: Erick Perdue DEPT: SURGICAL PATHOLOGY RECD BY: Bassem Wheat ENTERED: 04/26/18 13:13 SP TYPE: EGD BIOPSY OTHR DR: Dr. Maxime Caldwell DO Tissues: A - Jejunum, NOS B - Gastric mucous membrane C - Gastric mucous membrane Procedures: Special Stain Group II Surgery Specimen Level IV Alcian Blue/PAS (control) HEADER OPERATION: Colonoscopy, EGD ([facility] [place]) PRE-OP DIAGNOSIS: Abdomen pain, screening TISSUE SUBMITTED: A - Jejunum biopsy, B - Antrum biopsy for H. pylori and path, C - GE junction biopsy MICROSCOPIC DIAGNOSIS A. Jejunum, biopsy: Fragments of small intestinal mucosa, no pathologic diagnosis. B. Antrum, biopsy: Mild gastritis. C. GE junction, biopsy: A fragment of gastroesophageal mucosa with mild chronic inflammation. Intestinal metaplasia (goblet cell metaplasia) is not identified. See comment. SJ:patrice 04/27/18 COMMENT B. The results of immunohistochemistry for Helicobacter pylori will be reported separately ([id number]). C. Alcian blue/PAS stain with matched control is used in the evaluation of the specimen. MICROSCOPIC DESCRIPTION Slides are reviewed. B. The specimen shows fragments of gastric mucosa with chronic inflammatory cell infiltrates in the lamina propria consisting of lymphocytes and plasma cells, consistent with mild chronic gastritis. GROSS DESCRIPTION A - Received in fixative is one container labeled with the patient's name and designated jejunum biopsy. The specimen consists of two irregular fragments of light leger soft tissue that in aggregate measure 1 x 0.2 x 0.1 cm. The specimen is totally submitted in one cassette. B - Received in fixative is one container labeled with the patient's name and designated antrum biopsy. The specimen consists of two irregular fragments of light leger soft tissue that in aggregate measure 0.3 x 0.2 x 0.1 cm. The specimen is totally submitted in one cassette. C - Received in fixative is one container labeled with the patient's name and designated GE junction biopsy. The specimen consists of one irregular fragment of light leger soft tissue that measures 0.3 x 0.2 x 0.1 cm. The specimen is totally submitted in one cassette. / DARSHAN:patrice 04/26/18 TC:3 CPT: 09086 x3, 07197
[2018-04-25 12:10] VITALS: BP 112/69; PULSE 67; RESP 14; TEMP 36.2; O2SAT 96; BMI 25.6
[2018-04-25 12:48] LABS: Anion Gap 4 (5-15); BUN 6 mg/dL (7-18); BUN/Creat Ratio 7.8 RATIO (10-20); Calcium,Total 8.5 mg/dL (8.5-10.1); Chloride 107 mmol/L (98-107); Creatinine, Serum 0.77 mg/dL (0.55-1.02); EST Glomerular Filtration Rate 85 mL/min (>60); Est Glom Filt Rate - Afr Amer 102 mL/min (>60); Estimated Creatinine Clearance 81.83 ml/min; Glucose 91 mg/dL (74-106); Potassium 3.8 mmol/L (3.5-5.1); Sodium Level 142 mmol/L (136-145)
[2018-04-25 13:47] VITALS: BP 112/69; BP 117/69; PULSE 70; RESP 15; TEMP 36.2; O2SAT 98
--- NOTE | 2018-04-25 13:49 | OP.ENDO_ITS ---
Patient Name: Juliane Ortega Procedure Date: 04/25/2018 1:16 PM Date of : 1970 Age: 48 Procedure: Upper GI endoscopy Indications: Dyspepsia Providers: Erick Perdue MD Referring MD: Erick Perdue MD Medicines: Monitored Anesthesia Care Patient Profile: This is a 48 year old female. Refer to note in patient chart for documentation of history and physical. Complications: No immediate complications. Procedure: Pre-Anesthesia Assessment: - Prior to the procedure, a History and Physical was performed, and patient medications and allergies were reviewed. The patient is competent. The risks and benefits of the procedure and the sedation options and risks were discussed with the patient. All questions were answered and informed consent was obtained. Patient identification and proposed procedure were verified by the physician, the nurse and the anesthesiologist in the procedure room. Mental Status Examination: alert and oriented. Airway Examination: normal oropharyngeal airway and neck mobility. Respiratory Examination: clear to auscultation. CV Examination: normal. Prophylactic Antibiotics: The patient does not require prophylactic antibiotics. Prior Anticoagulants: The patient has taken Xarelto (rivaroxaban), last dose was 1 day prior to procedure. ASA Grade Assessment: III - A patient with severe systemic disease. After reviewing the risks and benefits, the patient was deemed in satisfactory condition to undergo the procedure. The anesthesia plan was to use monitored anesthesia care (MAC). Immediately prior to administration of medications, the patient was re-assessed for adequacy to receive sedatives. The heart rate, respiratory rate, oxygen saturations, blood pressure, adequacy of pulmonary ventilation, and response to care were monitored throughout the procedure. The physical status of the patient was re-assessed after the procedure. After obtaining informed consent, the endoscope was passed under direct vision. Throughout the procedure, the patient's blood pressure, pulse, and oxygen saturations were monitored continuously. The gastroscope was introduced through the mouth, and advanced to the jejunum. The upper GI endoscopy was accomplished without difficulty. The patient tolerated the procedure well. Scope In: 1:31:12 PM Scope Out: 1:34:07 PM Total Procedure Duration Time 0 hours 2 minutes 55 seconds Findings: The examined jejunum was normal. Biopsies for histology were taken with a cold forceps for evaluation of celiac disease. Patchy mildly erythematous mucosa without active bleeding and with no stigmata of bleeding was found in the duodenal bulb. Scattered minimal inflammation characterized by erythema was found in the gastric antrum. Biopsies were taken with a cold forceps for histology. The lower third of the esophagus was normal. Biopsies were taken with a cold forceps for histology. Impression: - Normal examined jejunum. Biopsied. - Erythematous duodenopathy. - Gastritis. Biopsied. - Normal lower third of esophagus. Biopsied. Recommendation: - Return to nurse practitioner in 1 week. - Continue present medications. Procedure Code(s): --- Professional --- 83594, Esophagogastroduodenoscopy, flexible, transoral; with biopsy, single or multiple CPT copyright 2017 [employer]. All rights reserved. The codes documented in this report are preliminary and upon tech ed teacher review may be revised to meet current compliance requirements. Erick Perdue MD 04/25/2018 1:48:23 PM This report has been signed electronically. Number of Addenda: 0 Note Initiated On: 04/25/2018 1:16 PM
--- NOTE | 2018-04-25 13:51 | OP.ENDO_ITS ---
Patient Name: Juliane Ortega Procedure Date: 04/25/2018 1:34 PM Date of : 1970 Age: 48 Procedure: Colonoscopy Indications: Screening for colorectal malignant neoplasm Providers: Erick Perdue MD Referring MD: Erick Perdue MD Medicines: Monitored Anesthesia Care Patient Profile: This is a 48 year old female. Refer to note in patient chart for documentation of history and physical. Last Colonoscopy: 5 years ago. Complications: No immediate complications. Procedure: Pre-Anesthesia Assessment: - Prior to the procedure, a History and Physical was performed, and patient medications and allergies were reviewed. The patient is competent. The risks and benefits of the procedure and the sedation options and risks were discussed with the patient. All questions were answered and informed consent was obtained. Patient identification and proposed procedure were verified by the physician, the nurse and the anesthesiologist in the procedure room. Mental Status Examination: alert and oriented. Airway Examination: normal oropharyngeal airway and neck mobility. Respiratory Examination: clear to auscultation. CV Examination: normal. Prophylactic Antibiotics: The patient does not require prophylactic antibiotics. Prior Anticoagulants: The patient has taken Xarelto (rivaroxaban), last dose was 1 day prior to procedure. ASA Grade Assessment: III - A patient with severe systemic disease. After reviewing the risks and benefits, the patient was deemed in satisfactory condition to undergo the procedure. The anesthesia plan was to use monitored anesthesia care (MAC). Immediately prior to administration of medications, the patient was re-assessed for adequacy to receive sedatives. The heart rate, respiratory rate, oxygen saturations, blood pressure, adequacy of pulmonary ventilation, and response to care were monitored throughout the procedure. The physical status of the patient was re-assessed after the procedure. After I obtained informed consent, the scope was passed under direct vision. Throughout the procedure, the patient's blood pressure, pulse, and oxygen saturations were monitored continuously. The Colonoscope was introduced through the anus and advanced to the cecum, identified by the appendiceal orifice, ileocecal valve and palpation. The colonoscopy was performed without difficulty. The patient tolerated the procedure well. The quality of the bowel preparation was good. Scope In: 1:36:45 PM Scope Withdrawal Time 0 hours 2 minutes 15 seconds Scope Out: 1:42:57 PM Total Procedure Duration Time 0 hours 6 minutes 12 seconds Findings: The perianal and digital rectal examinations were normal. The entire examined colon appeared normal on direct and retroflexion views. Impression: - The entire examined colon is normal on direct and retroflexion views. - No specimens collected. Recommendation: - Discharge patient to home. - Resume previous diet. - Continue present medications. - Repeat colonoscopy in 10 years for screening purposes. Procedure Code(s): --- Professional --- 63432, Colonoscopy, flexible; diagnostic, including collection of specimen(s) by brushing or washing, when performed (separate procedure) CPT copyright 2017 [employer] [place] [employer] [employer]. All rights reserved. The codes documented in this report are preliminary and upon director radio review may be revised to meet current compliance requirements. Erick Perdue MD 04/25/2018 1:50:45 PM This report has been signed electronically. Number of Addenda: 0 Note Initiated On: 04/25/2018 1:34 PM
[2018-04-25 13:52] VITALS: BP 112/69; BP 113/69; PULSE 66; RESP 16; O2SAT 98
[2018-04-25 13:57] VITALS: BP 112/69; BP 122/67; PULSE 66; RESP 16; O2SAT 98
[2018-04-25 14:02] VITALS: BP 112/69; BP 118/85; PULSE 64; RESP 16; TEMP 36.1; O2SAT 100
[2018-04-25 14:53] VITALS: BP 112/69
== END 2018-04-25 14:58 | disposition home or self-care (01) ==
LOC: EN 11:43 → AC 11:55
PROVIDERS: Anesthesiology; Family Provider Student in an Organized Health Care Education/Training Program; PCP Student in an Organized Health Care Education/Training Program; Referring Provider Surgery; Visit Provider Surgery
PROC: 0DJD8ZZ Inspection of Lower Intestinal Tract, Via Natural or Artificial Opening Endoscopic (ICD-10-PCS; CPT 45378; principal; 2018-04-25 12:40)
DX: Z12.11 Encounter for screening for malignant neoplasm of colon (principal); Z95.0 Presence of cardiac pacemaker; E03.9 Hypothyroidism, unspecified; K42.9 Umbilical hernia without obstruction or gangrene; K29.70 Gastritis, unspecified, without bleeding; I48.91 Unspecified atrial fibrillation; D86.9 Sarcoidosis, unspecified
CPT/HCPCS: 43239; 45378; 36415; 80048; 88305; 88313; 88342; J7120

== ENCOUNTER → 2018-11-18 15:32 | Outpatient (CLI) | payer OTHER, MEDICAID, SELFPAY ==
--- NOTE | 2018-11-18 15:45 | RAD_ITS ---
STUDY: X-RAY - UNILATERAL RIBS ( RIGHT ) REASON FOR EXAM: Female, 48 years old. Right chest, rib pain TECHNIQUE: 4 view(s) of the ribs. COMPARISON: None. FINDINGS: Normal visualized ribs without a demonstrated fracture. The visualized lung is clear and expanded. There is a cardiac pacemaker partially included on [id number]. The sternal wires. There is atrial clipping RAD/Ribs Unil 2V No CXR IMPRESSION: Normal x-ray examination of the ribs. Electronically Signed: Huy Alston, at 16:09 EDT Tel , Service support ,
== END ==
PROVIDERS: Family Provider Student in an Organized Health Care Education/Training Program; PCP Student in an Organized Health Care Education/Training Program; Referring Provider Chiropractor; Visit Provider Chiropractor
DX: S20.211A Contusion of right front wall of thorax, initial encounter (principal)
CPT/HCPCS: 71100

== ENCOUNTER 2018-11-21 08:21 | Emergency (ER) | payer OTHER, MEDICAID, SELFPAY ==
[2018-11-21 08:22] VITALS: BP 134/74; PULSE 79; RESP 14; TEMP 36.6; O2SAT 98; BMI 29.7
--- NOTE | 2018-11-21 08:36 | EKG12_ITS ---
Test Reason : CP Blood Pressure : / mmHG Vent. Rate : 081 BPM Atrial Rate : 081 BPM P-R Int : 160 ms QRS Dur : 152 ms QT Int : 438 ms P-R-T Axes : 064 -22 158 degrees QTc Int : 508 ms Normal sinus rhythm Possible Left atrial enlargement Left bundle branch block Abnormal ECG Left bundle branch block Confirmed by EVE PLUMMER, JAMIL ([id number]), editorial assistant IVONNE LING ([id number]) on 11/22/2018 1:40:36 PM Referred By: Jeronimo Taylor Confirmed By:JAMIL PRADO MD
--- NOTE | 2018-11-21 08:37 | ED.DCSUM_ITS ---
History of Present Illness Chief Complaint: Chest Pain Informant: Patient Onset: Days - 3 Timing: Continuous Current Severity: Mild Maximum Severity: Mild Narrative: Patient presents with chest pain for 2 to 3 days it started in the right chest region after a fall, then it moved to her lower chest region as well as left- sided chest and left shoulder region. She has a complicated history with recent cardiac surgery for cardiomyopathy. She has no shortness of breath. She has no edema. She has no fever chills or calf pain or lower extremity swelling. Past Medical History - Allergies and Home Meds Allergies/Adverse Reactions: Allergies chamomile flower Adverse Reaction (Verified 04/25/18 12:08) Unknown codeine Adverse Reaction (Verified 04/25/18 12:08) Vomiting latex Adverse Reaction (Verified 04/25/18 12:08) Unknown Penicillins Adverse Reaction (Verified 04/25/18 12:08) Swelling BENADRYL Adverse Reaction (Uncoded 04/25/18 12:08) Other Primary Care Physician: Maxime Caldwell DO [Primary Care Provider] - 3-5 Days Past Medical History: - - Cardiomyopathy Surgical History: - - Recent oophorectomy which had no complications Smoking Status: Former smoker - Family History Maternal Family History: Family History (Last Reviewed 04/12/18 @ 14:29 by Tree Chaparro MD) Mother MVP (mitral valve prolapse) Brother Palpitations Brother Palpitations Family History: Reports: No pertinent history Review of Systems All systems negative except as indicated General: Denies: Chills, Fever, Sweats Eyes: Denies: Visual changes - bilaterally, Diplopia ENT: Denies: Rhinorrhea, Sore throat Cardiovascular: Reports: Chest pain. Denies: Palpitations Respiratory: Denies: Dyspnea, Cough, Dyspnea on exertion Gastrointestinal: Denies: Abdominal pain, Nausea, Vomiting, Diarrhea, Melena, Hematochezia Genitourinary: Denies: Dysuria, Hematuria, Frequency Musculoskeletal: Denies: Back pain, Extremity Pain Skin: Denies: Rash, Wounds Neurological: Denies: Headache, Weakness, Numbness Physical Exam Vital Signs/Narrative: Vital Signs Temp Pulse Resp BP Pulse Ox 11/21/18 08:22 97.8 F 79 14 134/74 H 98 General: Well nourished, Well developed Head: Normocephalic Eyes: Perrl, EOMI ENT: Moist mucous membranes. Negative for: Nasal congestion Cardiovascular: Regular rate, Regular rhythm - Bedside ultrasound does not show a pericardial effusion Respiratory: No distress, CTA bilaterally, Chest nontender Abdomen: Soft, Nontender Back: Nontender, Normal Inspection Extremities: Nontender, No edema Skin: Normal color Neurological: Alert, Oriented x3 Diagnostic/Tx/Re-eval - EKG Initial EKG Interpretation: Sinus Rhythm, LBBB Prior: Unchanged - Medical Decision Making She has a normal work-up. She is now asymptomatic. I believe she is safe for discharge. Her pain is chronic recurrent. She is requesting Toradol for home. ED Disposition - Plan for ED Patient: Disposition: Home or Assisted Living Diagnosis: Cardiomyopathy in other diseases classified elsewhere, Chest pain Instructions: CHEST PAIN, NonCardiac Prescriptions: Ketorolac [Toradol] 10 mg PO Q4H #20 tab Prescription Printed Referrals: Maxime Calwdell DO [Primary Care Provider] - 3-5 Days
[2018-11-21 08:42] VITALS: O2SAT 95
[2018-11-21 08:45] LABS: Absolute Lymphocyte Count 1.69 X10^3/ul (0.83-4.51); Absolute Neutrophil Count 7.8 X10^3/uL (2.0-7.7); Basophil# 0.03 X10^3/uL; Basophil% 0.3 % (0-1); Eosinophil# 0.13 X10^3/uL; Eosinophils% 1.2 % (0-5); Hematocrit 37.1 % (37-47); Hemoglobin 12.2 g/dl (12.0-15.0); Lymphocyte # 1.69 X10^3/ul (4.0); Lymphocyte % 15.6 % (19-41); Mean Corp Hgb Conc 32.9 g/gl (32-36); Mean Corpuscular Hgb 26.1 pg (27.0-32.0); Mean Corpuscular Volume 79.4 fL (81-99); Mean Platelet Vol. 9.3 fl (6.2-12.0); Monocyte% 11.1 % (0-10); Neutrophil # 7.78 X10^3/uL (2.7-7.7); Neutrophil % 71.7 % (47-70); POSITIVE COUNT NO; POSITIVE DIFFERENTIAL NO; POSITIVE MORPHOLOGY NO; Platelet Count 253 K/mm3 (150-450); RBC Distribution Width CV 17.3 % (11.6-14.6); RBC Distribution Width SD 50.1 fl (35.1-43.9); Red Blood Count 4.67 M/mm3 (4.2-5.4); White Blood Count 10.8 K/mm3 (4.4-11.0)
--- NOTE | 2018-11-21 08:50 | RAD_ITS ---
STUDY: X-RAY CHEST REASON FOR EXAM: Female, 48 years old. Chest discomfort. TECHNIQUE: Single AP portable view of the chest. COMPARISON: Comparison is made with prior study dated June 28, 2017. FINDINGS: EKG electrodes are seen. Minimal increased markings at the left lung base suggestive of left basilar atelectasis. There is no demonstrated pleural abnormality. Sternal cerclage wires are present from a prior sternotomy. A clip is seen in the region of the mitral valve. A left-sided dual-chamber pacemaker is seen. Mild cardiomegaly. Normal mediastinum and berta. Normal visualized pulmonary arteries. There is atherosclerotic calcification of the aortic arch with tortuosity. Normal visualized thoracic spine. Normal visualized ribs, clavicles, and shoulders. There is no demonstrated abnormality of the visualized soft tissue structures of the upper abdomen. RAD/Chest 1 View (Portable) IMPRESSION: Status post mitral valve surgery. Mild increased markings at the left lung base suggestive of left basilar atelectasis. Electronically Signed: Bernabe Rios, at 9:28 EDT , Service support ,
[2018-11-21 08:58] LABS: BUN 14 mg/dL (7-18); Creatinine, Serum 0.74 mg/dL (0.55-1.02); Estimated Creatinine Clearance 85.14 ml/min; Glucose 90 mg/dL (74-106)
[2018-11-21 08:59] LABS: Anion Gap 7 (5-15); BUN/Creat Ratio 18.9 RATIO (10-20); Calcium,Total 8.5 mg/dL (8.5-10.1); Chloride 107 mmol/L (98-107); EST Glomerular Filtration Rate 88 mL/min (>60); Est Glom Filt Rate - Afr Amer 106 mL/min (>60); Potassium 3.7 mmol/L (3.5-5.1); Sodium Level 143 mmol/L (136-145)
[2018-11-21 09:15] LABS: D-Dimer Quantitative (DVT/PE) 0.36 FEU/ug/m (0.27-0.49)
[2018-11-21 09:30] VITALS: BP 134/90; PULSE 91; RESP 25; O2SAT 98
[2018-11-21 10:09] VITALS: BP 122/74; PULSE 83; RESP 14; O2SAT 98
== END 2018-11-21 10:10 | disposition home or self-care (01) ==
PROVIDERS: Emergency Provider Emergency Medicine; Family Provider Student in an Organized Health Care Education/Training Program; PCP Student in an Organized Health Care Education/Training Program
DX: I42.9 Cardiomyopathy, unspecified (principal); I44.7 Left bundle-branch block, unspecified; R07.89 Other chest pain; Z87.891 Personal history of nicotine dependence; Z88.0 Allergy status to penicillin; Z88.5 Allergy status to narcotic agent; Z88.8 Allergy status to other drugs, medicaments and biological substances
CPT/HCPCS: 71045; 80048; 84484; 85025; 85379; 93005; 99284; A4216

== ENCOUNTER 2020-09-20 12:18 | Emergency (ER) | payer MEDICAID, SELFPAY ==
[2020-09-20 12:19] VITALS: BP 113/75; PULSE 56; RESP 16; TEMP 35.5; O2SAT 98; BMI 27.6
--- NOTE | 2020-09-20 13:04 | CT_ITS ---
STUDY: CT BRAIN WITHOUT CONTRAST REASON FOR EXAM: Female, 50 years old. Frequent headaches. Recent fall. Patient is on anticoagulants. RADIATION DOSAGE (If Supplied By Facility): CTDIvol = ( 44.99 ) mGy, DLP = ( 762.36 ) mGycm TECHNIQUE: Transaxial CT imaging of the brain was performed without administration of intravenous contrast material. Individualized dose optimization techniques were used for this CT. COMPARISON: Comparison is made with prior study dated 06/28/2007. FINDINGS: Normal soft tissue structures. Normal calvarium. Normal size ventricles and extra-axial spaces for the patient''s age. Normal white matter tracts of the cerebral hemispheres. Normal basal ganglia and thalami. Normal brainstem. Normal cerebellum. There is no intracranial hemorrhage. There are no findings of an acute ischemic infarction. Normal visualized paranasal sinuses. CT/Brain/Head without Contrast IMPRESSION: Normal unenhanced CT scan of the brain. Electronically Signed: Bernabe Rios MD at 13:41 EDT , Service support ,
--- NOTE | 2020-09-20 13:59 | EX.ED.DYSGE1 ---
HPI History of Present Illness Chief Complaint: Head Injury Informant: patient Narrative Narrative: Patient is a 50-year-old female with history of sarcoidosis and hypertrophic cardiomyopathy status post myectomy and surgical repair as well as atrial fibrillation, on Eliquis long-term, presenting for headaches. Patient states she has had intermittent but worsening headaches over the past month. She notes that more in her right side she gets pain from her right neck that radiates behind her right eye. Headache is throbbing in nature. Sometimes it does go to her left face. She is been having a harder time concentrating and been more forgetful. Patient notes that she had a low velocity fall a month ago. She did not really think much of it at the time. She tried to cross the street when she stepped in a hole which caused her to lose her balance and fall. She caught herself with her hands but the momentum took her and she fell to her right hitting the side of her head. She denies any associated loss of consciousness. She notes that usually her headache resolves with Tylenol or ibuprofen. Her headaches have been a bit more persistent for the past few days so she came in to be evaluated at the recommendation of her primary care office. [facility] Medical History (Updated 09/20/20 @ 14:[address] Marilyn Walden, ) Afib Cardiomyopathy in other diseases classified elsewhere Hypertrophic cardiomyopathy Hypoglycemia Hypokalemia Hypothyroidism Micturition syncope Nonrheumatic mitral (valve) prolapse Ovarian cyst Palpitations Paroxysmal atrial fibrillation Sarcoidosis Shingles Thyroid disease Ventricular tachycardia Vitamin D deficiency Home Medications coenzyme Q10 100 mg PO BID 04/26/13 [History Last Taken 06/06/14 300 MG] levothyroxine 112 mcg PO DAILY 04/26/13 [History Last Taken 04/25/18 09:00 112 MCG] lcblgfrvydcb-Be-ddwg-minerals 1 tab PO DAILY 06/05/14 [History Last Taken Unknown] bupropion HCl 150 mg PO DAILY 06/16/17 [History Last Taken 06/27/17] albuterol sulfate 90 mcg/actuation aerosol inhaler 2 puff INHALATION Q6H PRN 09/13/17 [History Last Taken Unknown] apixaban [Eliquis] 5 mg PO BID 09/20/20 [History Last Taken Unknown] metoprolol succinate 75 mg PO DAILY 09/20/20 [History Last Taken Unknown] Allergy/AdvReac Type Severity Reaction Status Date / Time chamomile flower AdvReac Unknown Verified 09/20/20 12:19 codeine AdvReac Vomiting Verified 09/20/20 12:19 latex AdvReac Unknown Verified 09/20/20 12:19 Penicillins AdvReac Swelling Verified 09/20/20 12:19 BENADRYL AdvReac Other Uncoded 09/20/20 12:19 Family History Mother MVP (mitral valve prolapse) Brother Palpitations Brother Palpitations Surgical History (Updated 09/20/20 @ 13:14 by Stevan Marks) History of (~1999) History of implantable cardiac defibrillator (ICD) (~2002) History of salpingo-oophorectomy History of tubal ligation Presence of cardiac pacemaker (~1998) Status post myomectomy Social History (Updated 04/13/18 @ 15:[address] Tree Chaparro MD) Smoking Status: Former smoker how long ago did patient quit smokin05/17/1992 alcohol intake: current alcohol intake frequency: a few times a month Alcohol type: beer substance use type: does not use caffeine: Yes Type: coffee what type of physical activity do you participate in: yoga, weight training and other details: tredmill frequency: 3-4 times per week duration: 45-60 minutes/day seatbelt use: always do you feel safe at home: Yes ROS ROS ED Constitutional Constitutional ED: Denies chills, fever(s) or malaise Eyes Eyes: Denies blurry vision, change in vision or loss of vision ENT ENT ED: Denies rhinorrhea or sore throat Cardiovascular Cardiovascular: Denies chest pain or dizziness Respiratory/Chest Respiratory/Chest: Denies cough or dyspnea Gastrointestinal Gastrointestinal: Denies nausea or vomiting Genitourinary Genitourinary ED: Denies dysuria or hematuria Musculoskeletal Musculoskeletal: Denies arthralgias or myalgias Integumentary Denies rash or wounds Neurologic Neurologic: Reports headache(s); Denies focal weakness, paresthesias or weakness Psychiatric Psychiatric: Denies anxiety or behavioral changes EXAM Physical Exam Const Vital Signs: 09/20/20 12:19 09/20/20 13:19 09/20/20 15:06 Temperature 95.9 F L Temperature Source Temporal Pulse Rate 56 L 59 L Respiratory Rate 16 16 Respiratory Effort Normal Respiratory Pattern Normal Blood Pressure 113/75 118/66 Blood Pressure Mean 87 Pulse Ox 98 97 Oxygen Delivery Method Room Air HEENT Reports TM's clear and moist mucous membranes Tympanic Membrane ED: Yes TM's clear Eyes PERRL and EOMs intact bilaterally Eyes Narrative: No nystagmus Neck supple Chest Wall inspection of chest normal Resp normal respiratory effort and clear to auscultation bilaterally Cardio regular rate, regular rhythm and S1 normal heart sound GI normal to inspection, nondistended, normoactive bowel sounds Back/Spine Cervical Spine: Negative for cervical spine tenderness Thoracic Spine / Upper Back: Negative for thoracic spinal tenderness or paraspinal muscle tenderness Extremity normal to inspection Neuro oriented x3, CN's II-XII intact bilaterally and no sensory deficits noted Neuro Narrative: Normal strength in all sensations. Normal coordination with [id number] Sensorium / Orientation: alert Psych mental status grossly normal Skin no rashes or lesions noted MDM MDM MDM Narrative Medical decision making narrative: Patient evaluated for headache. She has had worsening headache over the past month. She did have closed head injury 1 month ago and she is on Eliquis. She is was not evaluated at that time. She has normal neurologic exam. She does know she is at increased stress at work. CT obtained of the head was does not show any acute intracranial process. I suspect patient either has postconcussive syndrome versus tension headaches. Patient discharged home with instruction follow with her primary care doctor. She will continue take Tylenol as needed for headaches. At this time I do not think she requires admission or further evaluation inpatient of her headaches. Radiography Diagnostic Testing: Radiology Impression Brain CT 09/20/20 13:04 IMPRESSION: Normal unenhanced CT scan of the brain. Electronically Signed: Bernabe Rios MD at 13:41 EDT , Service support , Discharge Plan Triage Chief Complaint: Head Injury ED Provider: Marilyn Walden Dx/Rx/DC Orders Clinical Impression: Headache Instructions: ED Concussion, ED Headache, Tension, ED Head Injury (Adult) Prescriptions: No Action albuterol sulfate 90 mcg/actuation HFA aerosol inhaler 2 puff INHALATION Q6H PRN (Reason: Sob &/Or Wheezing) RF: 0 levothyroxine 112 MCG tablet 112 mcg PO DAILY RF: 0 coenzyme Q10 300 MG capsule 100 mg PO BID RF: 0 htfympkvmyiq-Jq-pgkl-minerals 1 EACH tablet 1 tab PO DAILY RF: 0 bupropion HCl 75 MG tablet 150 mg PO DAILY RF: 0 Eliquis 5 mg Tablet 5 mg PO BID RF: 0 metoprolol succinate 50 mg tablet extended release 24 hr 75 mg PO DAILY RF: 0 Primary Care Provider: Maxime Caldwell Referrals: Maxime Caldwell DO [Primary Care Provider] - Activity Restrictions/Additional Instructions: Continue to take Tylenol as needed for headache. Follow-up with your primary care doctor. I suspect her headache is either tension headache versus possible postconcussive syndrome. Disposition Disposition: Home, self care Discharge Date/Time: 09/20/20 15:10
[2020-09-20 15:06] VITALS: BP 118/66; PULSE 59; RESP 16; O2SAT 97
== END 2020-09-20 15:10 | disposition home or self-care (01) ==
PROVIDERS: Emergency Provider Emergency Medicine; PCP Student in an Organized Health Care Education/Training Program
DX: R51.9 Headache, unspecified (principal); I48.0 Paroxysmal atrial fibrillation; E03.9 Hypothyroidism, unspecified; I42.2 Other hypertrophic cardiomyopathy; Z87.891 Personal history of nicotine dependence; Z79.899 Other long term (current) drug therapy; Z79.01 Long term (current) use of anticoagulants
CPT/HCPCS: 70450; 99282

== ENCOUNTER 2021-03-03 13:15 | Outpatient (CLI) | payer MEDICAID, SELFPAY ==
[2021-03-03] MEDS: 0.9% Saline Lock 10 ML Syringe IV (13:48)
[2021-03-03 13:56] VITALS: BP 125/70; PULSE 50; RESP 16; TEMP 36.3; O2SAT 100; BMI 26.1
[2021-03-03 14:13] VITALS: BP 107/66; PULSE 52; RESP 16; TEMP 36.7; O2SAT 100
[2021-03-03 15:05] VITALS: BP 106/65; PULSE 51; RESP 16; TEMP 36.6; O2SAT 100
== END 2021-03-03 15:13 | disposition home or self-care (01) ==
LOC: MS3OUT 13:16 → MS3 13:16
PROVIDERS: PCP Student in an Organized Health Care Education/Training Program; Referring Provider Nurse Practitioner Adult Health; Visit Provider Nurse Practitioner Adult Health
DX: Z23 Encounter for immunization (principal); U07.1 COVID-19
CPT/HCPCS: J7050; M0243; A4216; Q0240; Q0244

== ENCOUNTER 2021-12-19 16:53 | Emergency (ER) | payer OTHER, MEDICAID, SELFPAY ==
[2021-12-19 16:54] VITALS: BP 124/70; PULSE 56; RESP 16; TEMP 36.1; O2SAT 99; BMI 27.6
--- NOTE | 2021-12-19 17:31 | RAD_ITS ---
STUDY: X-RAY CHEST REASON FOR EXAM: Female, 51 years old. pacermaker placement check -- chronic, trauma to area TECHNIQUE: XR Chest 1 View COMPARISON: 7.8.19 FINDINGS: There is no demonstrated pleural abnormality. There are multiple median sternotomy wires. There is an atrial appendage device noted. There is no pneumothorax. Normal size heart. Normal mediastinum and berta. Normal visualized pulmonary arteries. There is atherosclerotic calcification of the aortic arch with tortuosity. There are diffuse degenerative changes of the visualized thoracic spine. There is degenerative osteoarthritis of the bilateral shoulders. There is no demonstrated abnormality of the visualized soft tissue structures of the upper abdomen. RAD/Chest 1 View IMPRESSION: There are no acute findings. Electronically Signed: Ha Hanson MD at 17:49 EDT ,
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
== END 2021-12-19 18:21 | disposition home or self-care (01) ==
LOC: ED 18:09
PROVIDERS: Emergency Provider Emergency Medicine; PCP Student in an Organized Health Care Education/Training Program; Visit Provider Emergency Medicine
DX: S20.20XA Contusion of thorax, unspecified, initial encounter (principal); I48.0 Paroxysmal atrial fibrillation; Z87.891 Personal history of nicotine dependence; Z95.0 Presence of cardiac pacemaker; Y04.8XXA Assault by other bodily force, initial encounter; Y99.0 Civilian activity done for income or pay; Y92.119 Unspecified place in children's home and orphanage as the place of occurrence of the external cause
CPT/HCPCS: 71045; 99282

== ENCOUNTER 2021-12-23 09:47 | Emergency (ER) | payer OTHER, MEDICAID, SELFPAY ==
[2021-12-23 09:49] VITALS: BP 123/80; PULSE 56; RESP 18; TEMP 36.1; O2SAT 98; BMI 27.5
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
[2021-12-23] MEDS: HYDROcodone Bitartrate/Apap 5/325 Tablet PO (12:12)
[2021-12-23 12:15] VITALS: BP 118/57; PULSE 55; RESP 18; O2SAT 97
== END 2021-12-23 12:21 | disposition home or self-care (01) ==
PROVIDERS: Emergency Provider Emergency Medicine; PCP Student in an Organized Health Care Education/Training Program; Visit Provider Emergency Medicine
DX: S20.20XA Contusion of thorax, unspecified, initial encounter (principal); I42.2 Other hypertrophic cardiomyopathy; S29.011A Strain of muscle and tendon of front wall of thorax, initial encounter; Z87.891 Personal history of nicotine dependence; R11.0 Nausea; Y99.0 Civilian activity done for income or pay; Y04.0XXA Assault by unarmed brawl or fight, initial encounter
CPT/HCPCS: 71111; 71120; 99283

== ENCOUNTER 2022-01-26 19:40 | Observation (INO) | payer OTHER, MEDICAID, SELFPAY ==
[2022-01-26 19:40] VITALS: BP 140/79; PULSE 65; RESP 18; TEMP 36.8; O2SAT 97; BMI 29.5
--- NOTE | 2022-01-26 19:52 | EKG12_ITS ---
Test Reason : DYSRHYTHMIA Blood Pressure : / mmHG Vent. Rate : 066 BPM Atrial Rate : 066 BPM P-R Int : 182 ms QRS Dur : 156 ms QT Int : 494 ms P-R-T Axes : 058 004 174 degrees QTc Int : 517 ms Normal sinus rhythm Left bundle branch block Abnormal ECG Confirmed by ANÍBAL PLUMMER, MESERET ([id number]), legal editor SOPHIA CASSIDY ([id number]) on 01/27/2022 9:26:54 AM Referred By: KASSIDY Confirmed By:MESERET SPANGLER MD
[2022-01-26] MEDS: Aspirin 81 MG TAB.CHEW 324 MG PO (20:05)
--- NOTE | 2022-01-26 20:14 | RAD_ITS ---
STUDY: X-RAY CHEST REASON FOR EXAM: Female, 51 years old. CHEST PAIN chest pain TECHNIQUE: XR Chest 1 View COMPARISON: 12/23/2021 FINDINGS: There is no demonstrated pleural abnormality. There are multiple median sternotomy wires. There is a left sided pacemaker batterypack. There is an atrial appendage device noted. Normal size heart. Normal mediastinum and berta. Normal visualized pulmonary arteries. Normal visualized aortic arch and descending thoracic aorta. Normal visualized thoracic spine. Normal visualized ribs, clavicles, and shoulders. There is no demonstrated abnormality of the visualized soft tissue structures of the upper abdomen. RAD/Chest 1 View (Portable) IMPRESSION: There are no acute findings. Electronically Signed: Ha Hanson MD at 20:31 EDT ,
[2022-01-26 20:18] LABS: Absolute Lymphocyte Count 1.58 X10^3/uL (0.83-4.51); Basophil# 0.05 X10^3/uL; Basophil% 0.6 % (0-1); Eosinophil# 0.21 X10^3/uL; Eosinophils% 2.5 % (0-5); Hematocrit 41.4 % (37-47); Hemoglobin 13.7 g/dL (12.0-15.0); Lymphocyte # 1.58 X10^3/ul (0.83-4.51); Mean Corp Hgb Conc 33.1 g/dL (32-36); Mean Corpuscular Hgb 28.2 pg (27.0-32.0); Mean Corpuscular Volume 85.4 fL (81-99); Mean Platelet Vol. 9.2 fl (6.2-12.0); Monocyte# 0.46 X10^3/uL; Monocyte% 5.5 % (0-10); NRBC Flagged by Analyzer 0 % (0-5); Neutrophil # 6.01 X10^3/uL (2.7-7.7); Neutrophil % 72.2 % (47-70); Platelet Count 245 K/mm3 (150-450); RBC Distribution Width CV 12.9 % (11.6-14.6); RBC Distribution Width SD 39.8 fl (35.1-43.9); Red Blood Count 4.85 M/mm3 (4.2-5.4); White Blood Count 8.3 K/mm3 (4.4-11.0)
[2022-01-26 20:36] LABS: Anion Gap 4 (5-15); BUN 10 mg/dL (7-18); BUN/Creat Ratio 11.4 RATIO (10-20); Calcium,Total 9.1 mg/dL (8.5-10.1); Chloride 105 mmol/L (98-107); Creatinine, Serum 0.87 mg/dL (0.55-1.02); EST Glomerular Filtration Rate 72 mL/min (>60); Est Glom Filt Rate - Afr Amer 87 mL/min (>60); Estimated Creatinine Clearance 67.29 ml/min; Glucose 118 mg/dL (74-106); Potassium 3.7 mmol/L (3.5-5.1); Sodium Level 140 mmol/L (136-145); Troponin-I HS (w/2H Reflex) 16 pg/mL (3.0-54.0)
[2022-01-26 20:40] VITALS: BP 142/78; PULSE 85; RESP 18
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
[2022-01-26 20:59] VITALS: BP 142/63; PULSE 86; RESP 20; O2SAT 97
[2022-01-26 22:00] VITALS: BP 141/76; PULSE 68; RESP 18; O2SAT 98
[2022-01-26 22:16] LABS: Reflex Troponin-HS? (from REC) Y
[2022-01-26 22:43] LABS: Troponin-I HS 18 pg/mL (3.0-54.0)
[2022-01-26 23:00] VITALS: RESP 18
[2022-01-27] VITALS (14 sets, daily range): BP systolic 123–146; BP diastolic 52–82; PULSE 58–92; RESP 11–18; TEMP 36.5–36.9; O2SAT 96–99; BMI 27.9
[2022-01-27] MEDS: 0.9% Normal Saline 1,000 ML 999 ML IV (00:01)
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
[2022-01-27 01:20] LABS: Magnesium 2.1 mg/dL (1.6-2.6)
[2022-01-27] MEDS: Potassium Chloride Oral Tablet 10 MEQ 30 MEQ PO (02:28)
[2022-01-27] MEDS: APIXABAN 5 MG TABLET PO ×2 (02:46→09:07)
[2022-01-27 03:07] LABS: Troponin-I HS 16 pg/mL (3.0-54.0)
[2022-01-27 03:17] LABS: Anion Gap 7 (5-15); BUN 8 mg/dL (7-18); BUN/Creat Ratio 12.9 RATIO (10-20); Calcium,Total 8.5 mg/dL (8.5-10.1); Chloride 111 mmol/L (98-107); Creatinine, Serum 0.62 mg/dL (0.55-1.02); EST Glomerular Filtration Rate 107 mL/min (>60); Est Glom Filt Rate - Afr Amer 130 mL/min (>60); Estimated Creatinine Clearance 94.43 ml/min; Glucose 119 mg/dL (74-106); Potassium 3.9 mmol/L (3.5-5.1); Sodium Level 142 mmol/L (136-145); Thyroid Stim Hormone (TSH) 1.48 uIU/mL (0.358-3.74)
[2022-01-27] MEDS: Levothyroxine 112 MCG Tablet PO (05:53)
--- NOTE | 2022-01-27 05:55 | ECHOCS_ITS ---
Reason For Study: SYNCOPE Procedure This was a 2D Doppler, Color Flow transthoracic echocardiogram. Exam performed portable in patient room. Left Ventricle Normal LV size. Status post septal myectomy. Moderate concentric left ventricular hypertrophy. Left ventricular systolic function is normal. The estimated ejection fraction is 55 %. Stage 3 diastolic dysfunction. No regional wall motion abnormalities noted. Right Ventricle Normal RV size. ICD or pacer leads identified within the right ventricle. Normal systolic function. Atria The left atrium is mildly enlarged. Normal right atrium. Mitral Valve Normal mitral valve. Trivial eccentric mitral valve insufficiency. Tricuspid Valve Normal tricuspid valve. Mild tricuspid valve insufficiency. Pulmonary artery systolic pressure is 37 mmHg. Aortic Valve Normal aortic valve. Pulmonic Valve Normal pulmonic valve. Great Vessels Normal aortic root. Pericardium/Pleural No pericardial effusion. MMode/2D Measurements & Calculations LVIDd: 4.9 cm IVSd: 1.5 cm Ao root diam: 3.2 cm LVIDs: 3.5 cm LVPWd: 1.3 cm RVDd: 3.4 cm FS: 28.3 % LAV(MOD-bp): 86.6 ml LA A4 area: 24.6 cm2 LA dimension(2D): 5.0 cm LAV(MOD-bp) Indexed: 47.2 ml/m2 LAV(MOD-sp2): 83.8 ml LAV(MOD-sp4): 87.3 ml RA A4 area: 10.0 cm2 Time Measurements MV dec time: 0.20 sec Doppler Measurements & Calculations MV E max jay: 130.6 cm/sec Lat Peak E' Jay: 8.5 cm/sec Med Peak E' Jay: 4.1 cm/sec MV A max jay: 39.6 cm/sec E/E' lat: 15.3 E/E' med: 31.7 MV E/A: 3.3 MV dec slope: 646.1 cm/sec2 Ao V2 max: 157.4 cm/sec LV V1 max: 136.2 cm/sec Ao max P.9 mmHg LV V1 max P.4 mmHg PA V2 max: 120.7 cm/sec TR max jay: 289.4 cm/sec PA V2 mean: 83.5 cm/sec TR max P.5 mmHg ECHO/Echo Complete W/ Contrast Interpretation Summary Normal LV size. Left ventricular systolic function is normal. Status post septal myectomy. The estimated ejection fraction is 55 %. ICD or pacer leads identified within the right ventricle. Trivial eccentric mitral valve insufficiency. Stage 3 diastolic dysfunction. Moderate concentric left ventricular hypertrophy. The left atrium is mildly enlarged. Contrast injection was performed. Ordering Physician: Koko Naylor Referring Physician: Maxime Caldwell Performed By: Hannah Mulligan, NOHEMI, RVT
[2022-01-27] MEDS: Potassium Chloride Oral Tablet 10 MEQ PO (06:19)
--- NOTE | 2022-01-27 07:30 | CT_ITS ---
STUDY: CT CHEST WITHOUT CONTRAST REASON FOR EXAM: Female, 51 years old. Injury to chest RADIATION DOSAGE (If Supplied By Facility): CTDIvol = ( 10.59 ) mGy, DLP = ( 375.91 ) mGycm TECHNIQUE: Transaxial imaging was performed without the administration of intravenous contrast material. Multiplanar coronal and sagittal images were reformatted. Individualized dose optimization techniques were used for this CT. COMPARISON: Comparison is made with prior chest radiograph dated 01/26/2022. FINDINGS: CHEST The lungs are normal. There is no demonstrated pleural abnormality. Sternal cerclage wires and vascular clips are present from a prior sternotomy and coronary artery bypass graft procedure (CABG). The left-sided dual-chamber pacemaker is seen. Cardiomegaly. There are multiple small lymph nodes within the mediastinum, which are normal in size and morphology most compatible with reactive lymph hyperplasia. Normal hilar regions. Normal unenhanced pulmonary arteries. Normal aorta arch and descending thoracic aorta. There are degenerative changes of the thoracic spine. There is no demonstrated abnormality of the visualized upper abdomen. CT/Chest without Contrast IMPRESSION: No acute abnormality is seen. Electronically Signed: Bernabe Rios MD at 11:01 EDT ,
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
[2022-01-27] MEDS: Multivitamins,Ther W-Minerals Tablet 1 TABLET PO (09:05)
[2022-01-27] MEDS: Metoprolol(XL)Succ 50 MG Tablet PO (09:05)
[2022-01-27] MEDS: Cholecalciferol (VIT D3) 25 MCG TABLET (1,000 UNITS) 50 MCG PO (09:06)
[2022-01-27] MEDS: buPROPion (XL) 150 MG TABLET.XL PO (09:06)
--- NOTE | 2022-01-27 14:30 | DCINST_ITS ---
Discharge Instructions Diet Discharge Diet: 2000 Calorie Control Diet Dressing / Incision Call your doctor if you observe: Fainting spells and Increased palpitations (irregular heartbeat) Follow Up Care Test Results: Test results from this visit will be discussed in further detail at your follow- up appointment, if applicable. Discharge Plan Admission Admit Date/Time: 01/27/22 00:14 Primary Reason for Your Visit: near syncope Attending Provider: Frandy Guy Primary Care Provider: Maxime Caldwell Consulting Providers: Tree Chaparro ; Koko Naylor Discharge Orders/Prescriptions Prescriptions: Continued albuterol sulfate 90 mcg/actuation HFA aerosol inhaler 2 puff INHALATION Q6H PRN (Reason: Sob &/Or Wheezing) levothyroxine 112 MCG tablet 112 mcg PO DAILY Label Comments: thyroid coenzyme Q10 300 MG capsule 100 mg PO BID Label Comments: supplement edepnfryalaz-Mh-hojg-minerals 1 EACH tablet 1 tab PO DAILY bupropion HCl 75 MG tablet 150 mg PO DAILY Eliquis 5 mg Tablet 5 mg PO BID metoprolol succinate 50 mg tablet extended release 24 hr 50 mg PO DAILY hydrocodone-acetaminophen 5-325 mg tablet 1 tab PO Q6H PRN PRN (Reason: Pain) 3 Days Qty: 10 0RF cholecalciferol (vitamin D3) 50 mcg (2,000 unit) Capsule 50 mcg PO DAILY Referrals / Follow Up: Tree Chaparro MD [Med Staff - Active Staff] - Within 1 Month Maxime Caldwell DO [Primary Care Provider] - Within 2 Weeks Disposition Disposition (needs filled in before D/C Order can be placed): Home, Self Care
--- NOTE | 2022-01-27 14:37 | DS.PCM_ITS ---
Providers Date of Admission: 01/27/22 Primary Care Physician: Dr. Maxime Caldwell DO Consultations 01/27/22 01:32 Consult: Cardiology Routine Consulting Provider: Tree Chaparro Reason for Consult: Pre-syncope; Palpitations EMERGENT Consult: No MD Notified: Yes Date Notified: 01/27/22 Time Notified: 06:20 Method of Notification: Text Method of Consult:: In-Person Reason For Visit: PRE-SYNCOPE Diagnosis Discharge Diagnosis (1) HOCM (hypertrophic obstructive cardiomyopathy): Status: Acute Code(s): I42.1 - Obstructive hypertrophic cardiomyopathy (2) Status post ventricular septal myectomy: Status: Acute Code(s): Z98.890 - Other specified postprocedural states (3) H/O maze procedure: Status: Acute Code(s): Z98.890 - Other specified postprocedural states (4) Presence of cardiac pacemaker: Status: Chronic Code(s): Z95.0 - Presence of cardiac pacemaker Medications at Discharge Home Medications coenzyme Q10 300 mg capsule 100 mg PO BID 04/26/13 levothyroxine 112 mcg tablet 112 mcg PO DAILY thyroid 04/26/13 nckkapomisvs-Nj-opuy-minerals 1 tab PO DAILY 06/05/14 bupropion HCl 75 mg tablet 150 mg PO DAILY depression 06/16/17 albuterol sulfate 90 mcg/actuation aerosol inhaler 2 puff inhalation Q6H PRN Sob &/Or Wheezing 09/13/17 apixaban 5 mg tablet (Eliquis) 5 mg PO BID 09/20/20 metoprolol succinate 50 mg tablet,extended release 24 hr 50 mg PO DAILY 09/20/20 hydrocodone-acetaminophen 5-325mg 5mg-325mg 1 tab PO Q6H PRN PRN Pain 3 days #10 TABLETS 12/23/21 cholecalciferol (vitamin D3) 50 mcg (2,000 unit) capsule 50 mcg PO DAILY 01/26/22 Hospital Course Operations None Procedures 2-D Echocardiogram Summary of Care Provided Minutes Spent on Discharge: 28 Hospital Course: This is a 51-year-old female who had a near syncopal event while walking. Patient has history of hypertrophic obstructive cardiomyopathy with a history of septal myomotomy plus paroxysmal atrial fibrillation status post pacemaker and defibrillator. Patient was monitored in the hospital underwent a 2D echocardiogram. 2D echocardiogram showed an EF of 55%. ICD and pacer leads were in the right ventricle. Concentric LVH. Patient was seen in consultation by Dr. Chaparro who reviewed the information and felt the patient could be discharged to home. Patient did state that she felt slightly dehydrated though she had no acute kidney injury on her lab work. Patient is otherwise stable and will be discharged home. Physical Exam Const alert and no apparent distress Resp normal respiratory effort Cardio regular rate, regular rhythm, S1 normal heart sound and S2 normal heart sound Weight / BMI Weight Weight: 76.1 kg Body Mass Index (BMI) 27.9 ABG / Lab / Microbiology Data Result Diagrams: 01/26/22 20:10 01/27/22 02:42 Laboratory: Laboratory Results - last 24 hr 01/26/22 20:10: WBC 8.3, RBC 4.85, Hgb 13.7, Hct 41.4, MCV 85.4, MCH 28.2, MCHC 33.1, RDW Std Deviation 39.8, RDW Coeff of Janay 12.9, Plt Count 245, MPV 9.2, Immature Gran % (Auto) 0.200, Neut % (Auto) 72.2 H, Lymph % (Auto) 19.0, [place] % (Auto) 5.5, Eos % (Auto) 2.5, Baso % (Auto) 0.6, Absolute Neuts (auto) 6.0, Absolute Lymphs (auto) 1.58, Nucleated RBC % 0 01/26/22 20:10: Sodium 140, Potassium 3.7, Chloride 105, Carbon Dioxide 31.0, Anion Gap 4 L, BUN 10, Creatinine 0.87, Estim Creat Clear Calc 67.29, Est GFR (MDRD) Af Amer 87, Est GFR (MDRD) Non-Af 72, BUN/Creatinine Ratio 11.4, Glucose 118 H, Calcium 9.1, Troponin I High Sens 16 01/26/22 22:10: Troponin I High Sens 18 01/26/22 22:10: Magnesium 2.1 01/27/22 02:42: Sodium 142, Potassium 3.9, Chloride 111 H, Carbon Dioxide 24.0, Anion Gap 7, BUN 8, Creatinine 0.62, Estim Creat Clear Calc 94.43, Est GFR (MDRD) Af Amer 130, Est GFR (MDRD) Non-Af 107, BUN/Creatinine Ratio 12.9, Glucose 119 H, Calcium 8.5, TSH 1.48 01/27/22 02:42: Troponin I High Sens 16 Radiography Diagnostic Testing: Radiology Impression Chest X-Ray 01/26/22 20:14 IMPRESSION: There are no acute findings. Electronically Signed: Ha Hanson MD at 20:31 EDT , Echocardiogram 01/27/22 05:55 Interpretation Summary Normal LV size. Left ventricular systolic function is normal. Status post septal myectomy. The estimated ejection fraction is 55 %. ICD or pacer leads identified within the right ventricle. Trivial eccentric mitral valve insufficiency. Stage 3 diastolic dysfunction. Moderate concentric left ventricular hypertrophy. The left atrium is mildly enlarged. Contrast injection was performed. Ordering Physician: Koko Naylor Referring Physician: Maxime Caldwell Performed By: Hannah Mulligan RDCS, RVT Chest CT 01/27/22 07:30 IMPRESSION: No acute abnormality is seen. Electronically Signed: Bernabe Rios MD at 11:01 EDT , D/C Instructions Discharge Diet: 2000 Calorie Control Diet Call your doctor if you observe: Fainting spells and Increased palpitations (irregular heartbeat) Meaningful Use Info Meaningful Use Diagnoses (Choose all that apply): None applicable Discharge Plan Admission Admit Date/Time: 01/27/22 00:14 Primary Reason for Your Visit: near syncope Attending Provider: Jopperi,Frandy Primary Care Provider: Maxime Caldwell Consulting Providers: Tree Chaparro ; Koko Naylor Discharge Orders/Prescriptions Prescriptions: Continued albuterol sulfate 90 mcg/actuation HFA aerosol inhaler 2 puff INHALATION Q6H PRN (Reason: Sob &/Or Wheezing) levothyroxine 112 MCG tablet 112 mcg PO DAILY Label Comments: thyroid coenzyme Q10 300 MG capsule 100 mg PO BID Label Comments: supplement vamdldmlxdkr-Lo-rzvf-minerals 1 EACH tablet 1 tab PO DAILY bupropion HCl 75 MG tablet 150 mg PO DAILY Eliquis 5 mg Tablet 5 mg PO BID metoprolol succinate 50 mg tablet extended release 24 hr 50 mg PO DAILY hydrocodone-acetaminophen 5-325 mg tablet 1 tab PO Q6H PRN PRN (Reason: Pain) 3 Days Qty: 10 0RF cholecalciferol (vitamin D3) 50 mcg (2,000 unit) Capsule 50 mcg PO DAILY Referrals / Follow Up: Tree Chaparro MD [Med Staff - Active Staff] - Within 1 Month Maxime Caldwell DO [Primary Care Provider] - Within 2 Weeks Disposition Disposition (needs filled in before D/C Order can be placed): Home, Self Care Charges/Coding Visit Charges OBSV E&M: 33883 Observation care discharge
--- NOTE | 2022-01-27 14:51 | CASEMGMT ---
Pt has been up independently in room and states no concerns with going home at discharge. Cordell WALLER CM
== END 2022-01-27 14:37 | disposition home or self-care (01) ==
LOC: ED 20:54 → PCU 01-27 00:41
PROVIDERS: Admitting Provider Hospitalist; Emergency Provider Student in an Organized Health Care Education/Training Program; PCP Student in an Organized Health Care Education/Training Program
DX: I48.0 Paroxysmal atrial fibrillation (principal); I42.1 Obstructive hypertrophic cardiomyopathy; I44.7 Left bundle-branch block, unspecified; Z87.891 Personal history of nicotine dependence; Z79.01 Long term (current) use of anticoagulants; Z95.810 Presence of automatic (implantable) cardiac defibrillator; E03.9 Hypothyroidism, unspecified; E78.5 Hyperlipidemia, unspecified; Z79.899 Other long term (current) drug therapy; Z79.890 Hormone replacement therapy; E55.9 Vitamin D deficiency, unspecified
CPT/HCPCS: 36415; 71045; 71250; 80048; 83735; 84443; 84484; 85025; 93005; 93306; 96360; 99218; 99285; J7030; Q9957; A4216; C8929; G0378

== ENCOUNTER 2022-02-28 08:41 | Inpatient (IN) | payer OTHER, MEDICAID, SELFPAY ==
[2022-02-28] VITALS (33 sets, daily range): BP systolic 98–136; BP diastolic 62–94; PULSE 71–118; RESP 10–22; TEMP 36.3–36.7; O2SAT 96–100; BMI 28.0; BMI 27.9
--- NOTE | 2022-02-28 09:04 | EKG12_ITS ---
Test Reason : PALPS Blood Pressure : / mmHG Vent. Rate : 115 BPM Atrial Rate : 115 BPM P-R Int : 144 ms QRS Dur : 152 ms QT Int : 396 ms P-R-T Axes : 000 001 170 degrees QTc Int : 547 ms Atrial flutter Left bundle branch block Abnormal ECG Confirmed by RABIA PLUMMER, GLORIA ([id number]), editorial director SOPHIA CASSIDY ([id number]) on 03/02/2022 10:06:51 AM Referred By: RAIZA Confirmed By:MADHAV CAMARILLO MD
--- NOTE | 2022-02-28 09:05 | EDS_ITS ---
HPI History of Present Illness Chief Complaint: Palpitations Informant: patient Narrative Narrative: Patient presents with palpitations. These got her up about 1 in the morning. She feels her heart racing. She feels a little pounding with it. She is not having pain. She does have some mild decreased energy and some very mild dyspnea. Patient has an ICD. She has a history of A. fib. She had a Maze procedure back in 2019. She does not know if she is ever had atrial flutter. She has had some diarrhea this week but has not felt ill. But she states she is very sensitive to dehydration. She did take her metoprolol early this morning about 1 AM. She normally takes it about this time. She takes 75 mg of long- acting metoprolol once a day. She was concerned that she might have missed it yesterday morning but is not sure of that. She rarely if ever misses medicines. Its been a while since her thyroid was rechecked but she has been on a stable dose for a while. She is on and is taking her Eliquis. Nothing specifically makes the symptoms better or worse. [facility] Medical History Afib Cardiomyopathy in other diseases classified elsewhere HOCM (hypertrophic obstructive cardiomyopathy) Hypertrophic cardiomyopathy Hypoglycemia Hypokalemia Hypothyroidism Micturition syncope Nonrheumatic mitral (valve) prolapse Ovarian cyst Palpitations Paroxysmal atrial fibrillation Sarcoidosis Shingles Thyroid disease Ventricular tachycardia Vitamin D deficiency Home Medications coenzyme Q10 300 mg capsule 100 mg PO BID 04/26/13 [History Last Taken 06/06/14 300 MG] levothyroxine 112 mcg tablet 112 mcg PO DAILY thyroid 04/26/13 [History Last Taken 04/25/18 09:00 112 MCG] rmodzolqzpac-Jj-hefe-minerals 1 tab PO DAILY 06/05/14 [History Last Taken Unknown] bupropion HCl 75 mg tablet 150 mg PO DAILY depression 06/16/17 [History Last Taken 06/27/17] albuterol sulfate 90 mcg/actuation aerosol inhaler 2 puff inhalation Q6H PRN Sob &/Or Wheezing 09/13/17 [History Last Taken Unknown] apixaban 5 mg tablet (Eliquis) 5 mg PO BID 09/20/20 [History Last Taken Unknown] metoprolol succinate 50 mg tablet,extended release 24 hr 50 mg PO DAILY 09/20/20 [History Last Taken Unknown] hydrocodone-acetaminophen 5-325mg 5mg-325mg 1 tab PO Q6H PRN PRN Pain 3 days #10 TABLETS 12/23/21 [Rx Last Taken Unknown] cholecalciferol (vitamin D3) 50 mcg (2,000 unit) capsule 50 mcg PO DAILY 01/26/22 [History Last Taken Unknown] Allergy/AdvReac Type Severity Reaction Status Date / Time chamomile flower AdvReac Unknown Verified 02/28/22 08:42 codeine AdvReac Vomiting Verified 02/28/22 08:42 diphenhydramine AdvReac Other Verified 02/28/22 08:42 [From Benadryl] latex AdvReac Unknown Verified 02/28/22 08:42 Penicillins AdvReac Swelling Verified 02/28/22 08:42 Family History Mother MVP (mitral valve prolapse) Brother Palpitations Brother Palpitations Surgical History H/O maze procedure History of (~1999) History of implantable cardiac defibrillator (ICD) (~2002) History of salpingo-oophorectomy History of tubal ligation Presence of cardiac pacemaker (~1998) Status post myomectomy Status post ventricular septal myectomy Social History household members: significant other and children number of children: 2 current occupational status: employed Smoking Status: Former smoker how long ago did patient quit smokin05/17/1992 alcohol intake: current alcohol intake frequency: a few times a month Alcohol type: beer substance use type: does not use caffeine: Yes Type: coffee what type of physical activity do you participate in: yoga, weight training and other details: tredmill frequency: 3-4 times per week duration: 45-60 minutes/day seatbelt use: always do you feel safe at home: Yes ROS ROS ED Constitutional Constitutional ED: Denies chills, fever(s) or subjective ENT ENT ED: Denies rhinorrhea Cardiovascular Cardiovascular: Reports palpitations and racing heartbeat; Denies chest pain Respiratory/Chest Respiratory/Chest: Reports dyspnea; Denies cough Gastrointestinal Gastrointestinal: Reports diarrhea; Denies abdominal pain, melena, nausea or vomiting Genitourinary Genitourinary ED: Denies dysuria Musculoskeletal Musculoskeletal: Denies myalgias Integumentary Denies rash Neurologic Neurologic: Denies paresthesias or weakness Endocrine Endocrinology: Denies polydipsia or polyuria Hematologic/Lymphatic Hematologic/Lymphatic: Reports easy bleeding and easy bruising Allergic/Immunologic Allergic/Immunologic ED: Denies urticaria EXAM Physical Exam Const Vital Signs: 02/28/22 08:43 02/28/22 09:42 Temperature 97.6 F L Temperature Source Temporal Pulse Rate 115 H Respiratory Rate 16 Blood Pressure 125/90 H Blood Pressure Mean 101 Pulse Ox 97 Oxygen Delivery Method Room Air Room Air Positive well nourished and well developed General Appearance ED: well developed and NAD; Negative for pallor HEENT Reports dry mucous membranes HEENT Narrative: Minimally dry mucous membranes Mouth ED: Yes dry mucous membranes Mouth: dry mucous membranes Eyes General Eye ED: Negative for scleral icterus Neck no JVD Chest Wall inspection of chest normal Resp normal respiratory effort and clear to auscultation bilaterally Resp Narrative: Lungs are clear including no rales at the bases Auscultation: Negative for rales, rhonchi or wheezes Cardio regular rhythm Rate: tachycardic and other Other Details: Heart appears very regular her rate stays almost locked on 115? couple beats. Tones are not muffled. Pulses are equal and conduct equally peripherally. GI normal to inspection, nondistended, normoactive bowel sounds and non-tender Inspection: Negative for abdominal distention Back/Spine no CVA tenderness Extremity normal to inspection Psych mental status grossly normal Skin no rashes or lesions noted General Skin Exam: Negative for jaundice or pallor MDM MDM MDM Narrative Medical decision making narrative: Chest x-ray shows no acute process. CBC is normal including white count hemoglobin and platelets. Electrolytes look good. Magnesium and TSH are good. She has had hypokalemia before but her potassium is normal. Her troponin was elevated at 118 though. Her last troponins have been normal. Patient is rechecked. Her heart rate is still about 115. We have sent off a query of her ICD to get further data. I did discuss case with the hospitalist. With her history of hypertrophic cardiomyopathy, Maze procedure, tachycardia, ICD and elevated troponin she will be admitted. Hospitalist requested I notify cardiology and I have them on page. My suspicion is that she may be in an underlying atrial flutter with 2-1 block. This is because of her history and her very steady rate at 115. We did give her fluids because she states she has a history of being very sensitive to dehydration and she did have some diarrhea. We are giving her small dose of metoprolol. This has not changed her rate at all so far. She is comfortable in bed. Lab Data Attestation: I reviewed the patient's lab results. Labs: Laboratory Results - last 24 hr 02/28/22 02/28/22 09:30 09:30 WBC 6.7 RBC 4.88 Hgb 14.3 Hct 41.4 MCV 84.8 MCH 29.3 MCHC 34.5 RDW Std Deviation 39.0 RDW Coeff of Janay 12.8 Plt Count 250 MPV 9.2 Immature Gran % (Auto) 0.100 Neut % (Auto) 71.4 H Lymph % (Auto) 18.2 L Chambers % (Auto) 7.8 Eos % (Auto) 1.9 Baso % (Auto) 0.6 Absolute Neuts (auto) 4.8 Absolute Lymphs (auto) 1.22 Nucleated RBC % 0 Sodium 142 Potassium 3.9 Chloride 110 H Carbon Dioxide 26.0 Anion Gap 6 BUN 8 Creatinine 0.62 Estim Creat Clear Calc 93.34 Est GFR (MDRD) Af Amer 130 Est GFR (MDRD) Non-Af 107 BUN/Creatinine Ratio 12.9 Glucose 112 H Calcium 9.0 Magnesium 2.2 Troponin I High Sens 118 H TSH 1.65 Radiography Diagnostic Testing: Clinical Impression(s) from Imaging Studies Chest X-Ray 02/28/22 09:36 IMPRESSION: No acute process Electronically Signed: Emanuel Miller MD at 10:03 EDT , Chest x-ray single view looked at by me and read by radiology shows no acute process. EKG Initial EKG: Comments: EKG done for palpitations read by me shows sinus rhythm with tachycardic rate at 115. There is left bundle branch block. Due to the rate and shape of the complexes I cannot define P waves or if there could be atrial flutter in the background. There are not Sgarbossa criteria of TSTEMI. DE interval is read as normal by computer. QRS duration and QTc are long. This is similar shape to prior and 26 January of this year but the rate is faster. Discharge Plan Disposition Disposition: Acute Care Hospital [facility]
[2022-02-28] MEDS: 0.9% Normal Saline 1,000 ML 1000 ML IV (09:29)
[2022-02-28] MEDS: Aspirin 81 MG TAB.CHEW 324 MG PO (09:30)
--- NOTE | 2022-02-28 09:36 | RAD_ITS ---
STUDY: X-RAY CHEST REASON FOR EXAM: Female, 52 years old. chest pain TECHNIQUE: Single AP portable view of the chest. COMPARISON: January 26, 2022 FINDINGS: Stable left chest cardiac device and leads. The lungs are clear and expanded. There is no demonstrated pleural abnormality. Sternal cerclage wires and vascular clips are present from a prior sternotomy and coronary artery bypass graft procedure (CABG). Normal heart size. Normal mediastinum and berta. Normal visualized pulmonary arteries. There is atherosclerotic calcification of the aortic arch with tortuosity. There are diffuse degenerative changes of the visualized thoracic spine. Normal visualized ribs, clavicles, and shoulders. There is no demonstrated abnormality of the visualized soft tissue structures of the upper abdomen. RAD/Chest 1 View (Portable) IMPRESSION: No acute process Electronically Signed: Emanuel Miller MD at 10:03 EDT ,
[2022-02-28 09:43] LABS: Absolute Lymphocyte Count 1.22 X10^3/uL (0.83-4.51); Absolute Neutrophil Count 4.8 X10^3/uL (2.0-7.7); Basophil# 0.04 X10^3/uL; Basophil% 0.6 % (0-1); Eosinophil# 0.13 X10^3/uL; Eosinophils% 1.9 % (0-5); Hematocrit 41.4 % (37-47); Hemoglobin 14.3 g/dL (12.0-15.0); Lymphocyte # 1.22 X10^3/ul (0.83-4.51); Lymphocyte % 18.2 % (19-41); Mean Corp Hgb Conc 34.5 g/dL (32-36); Mean Corpuscular Hgb 29.3 pg (27.0-32.0); Mean Corpuscular Volume 84.8 fL (81-99); Mean Platelet Vol. 9.2 fl (6.2-12.0); Monocyte# 0.52 X10^3/uL; Monocyte% 7.8 % (0-10); NRBC Flagged by Analyzer 0 % (0-5); Neutrophil # 4.78 X10^3/uL (2.7-7.7); Neutrophil % 71.4 % (47-70); Platelet Count 250 K/mm3 (150-450); RBC Distribution Width CV 12.8 % (11.6-14.6); Red Blood Count 4.88 M/mm3 (4.2-5.4); White Blood Count 6.7 K/mm3 (4.4-11.0)
[2022-02-28 10:06] LABS: Anion Gap 6 (5-15); BUN 8 mg/dL (7-18); BUN/Creat Ratio 12.9 RATIO (10-20); Chloride 110 mmol/L (98-107); Creatinine, Serum 0.62 mg/dL (0.55-1.02); EST Glomerular Filtration Rate 107 mL/min (>60); Est Glom Filt Rate - Afr Amer 130 mL/min (>60); Estimated Creatinine Clearance 93.34 ml/min; Glucose 112 mg/dL (74-106); Magnesium 2.2 mg/dL (1.6-2.6); Potassium 3.9 mmol/L (3.5-5.1); Sodium Level 142 mmol/L (136-145); Thyroid Stim Hormone (TSH) 1.65 uIU/mL (0.358-3.74); Troponin-I HS (w/2H Reflex) 118 pg/mL (3.0-54.0)
--- NOTE | 2022-02-28 10:30 | NURSING ---
DR CRUZ FOR DR EASTMAN
--- NOTE | 2022-02-28 10:40 | NURSING ---
PCU [place] PALPITATIONS, ELEVATED TROP
[2022-02-28] MEDS: Metoprolol Tartrate 5 MG/5 ML Vial IV (11:12)
[2022-02-28 11:36] LABS: Reflex Troponin-HS? (from REC) Y
[2022-02-28 13:24] LABS: Troponin-I HS 161 pg/mL (3.0-54.0)
--- NOTE | 2022-02-28 14:14 | PCM.HP.STD ---
HPI - General General Date of Admission: 02/28/22 HPI Narrative ISAURO CURRAN, is a 52 F who presents to the hospital with palpitations. She has a history of A. fib and is status post a maze procedure in 2019. She also has a pacemaker and is well. She states that her A. fib woke her up from sleep this morning and she is not sure if she took her metoprolol or not but presented to the hospital with palpitations. She was found to be tachycardic but she does have a paced rhythm and on physical exam it did seem regular so is unsure as to what exactly the cause of this is. She was given a dose of metoprolol IV in the ER. Her troponin when she came in was 118 and on repeat was 161 consistent with a type II event from a tachycardia. Cardiology was notified by the ED physician. [facility] Medical History (Updated 02/28/22 @ 14:[address] Lowell Ledesma MD) Afib Cardiomyopathy in other diseases classified elsewhere HOCM (hypertrophic obstructive cardiomyopathy) Hypertrophic cardiomyopathy Hypoglycemia Hypokalemia Hypothyroidism Micturition syncope Nonrheumatic mitral (valve) prolapse Ovarian cyst Palpitations Paroxysmal atrial fibrillation Sarcoidosis Shingles Thyroid disease Ventricular tachycardia Vitamin D deficiency Home Medications coenzyme Q10 300 mg capsule 100 mg PO BID Check with primary doctor 04/26/13 [History Last Taken 06/06/14 300 MG] levothyroxine 112 mcg tablet 112 mcg PO DAILY thyroid 04/26/13 [History Last Taken 04/25/18 09:00 112 MCG] tlnnwlyjgkfq-Mx-kbyr-minerals 1 tab PO DAILY Check with primary doctor 06/05/14 [History Last Taken Unknown] bupropion HCl 75 mg tablet 150 mg PO DAILY depression 06/16/17 [History Last Taken 06/27/17] albuterol sulfate 90 mcg/actuation aerosol inhaler 2 puff inhalation Q6H PRN Sob &/Or Wheezing 09/13/17 [History Last Taken Unknown] apixaban 5 mg tablet (Eliquis) 5 mg PO DAILY Check with primary doctor 09/20/20 [History Last Taken Unknown] metoprolol succinate 50 mg tablet,extended release 24 hr 75 mg PO DAILY Check with primary doctor 09/20/20 [History Last Taken Unknown] hydrocodone-acetaminophen 5-325mg 5mg-325mg 1 tab PO Q6H PRN PRN Pain 3 days #10 TABLETS 12/23/21 [Rx Last Taken Unknown] cholecalciferol (vitamin D3) 50 mcg (2,000 unit) capsule 50 mcg PO DAILY Check with primary doctor 01/26/22 [History Last Taken Unknown] Allergy/AdvReac Type Severity Reaction Status Date / Time chamomile flower AdvReac Unknown Verified 02/28/22 08:42 codeine AdvReac Vomiting Verified 02/28/22 08:42 diphenhydramine AdvReac Other Verified 02/28/22 08:42 [From Benadryl] latex AdvReac Unknown Verified 02/28/22 08:42 Penicillins AdvReac Swelling Verified 02/28/22 08:42 Family History Mother MVP (mitral valve prolapse) Brother Palpitations Brother Palpitations Surgical History H/O maze procedure History of (~1999) History of implantable cardiac defibrillator (ICD) (~2002) History of salpingo-oophorectomy History of tubal ligation Presence of cardiac pacemaker (~1998) Status post myomectomy Status post ventricular septal myectomy Social History household members: significant other and children number of children: 2 current occupational status: employed Smoking Status: Former smoker how long ago did patient quit smokin05/17/1992 alcohol intake: current alcohol intake frequency: a few times a month Alcohol type: beer substance use type: does not use caffeine: Yes Type: coffee what type of physical activity do you participate in: yoga, weight training and other details: tredmill frequency: 3-4 times per week duration: 45-60 minutes/day seatbelt use: always do you feel safe at home: Yes ROS Constitutional Constitutional: Denies chills, fatigue, fever(s) or malaise Eyes Eyes: Denies blurry vision ENT HEENT: Denies headache(s) or nasal discharge Cardiovascular Cardiovascular: Reports palpitations; Denies chest pain, dyspnea on exertion or syncope Respiratory/Chest Respiratory/Chest: Denies cough, shortness of breath at rest or shortness of breath with exertion Gastrointestinal Gastrointestinal: Denies constipation, diarrhea, nausea or vomiting Genitourinary Genitourinary: Denies dysuria Neurologic Neurologic: Denies focal weakness, numbness or tremor(s) Psychiatric Psychiatric: Denies anxiety or depression Vital Signs Vital Signs Vital Signs: 02/28/22 08:43 02/28/22 09:42 02/28/22 11:04 Temperature 97.6 F L 98 F Temperature Source Temporal Temporal Pulse Rate 115 H 114 H Respiratory Rate 16 18 Blood Pressure 125/90 H 132/89 H Blood Pressure Mean 101 103 Blood Pressure Source Blood Pressure Position Blood Pressure Location Pulse Ox 97 99 Oxygen Delivery Method Room Air Room Air Room Air 02/28/22 11:29 02/28/22 11:38 02/28/22 12:48 Temperature 98.0 F Temperature Source Temporal Pulse Rate 114 H 114 H 114 H Respiratory Rate 18 17 Blood Pressure 136/94 H 133/87 H Blood Pressure Mean 108 102 Blood Pressure Source Monitor Monitor Blood Pressure Position Semi-Fowlers Semi-Fowlers Blood Pressure Location Left Arm Left Arm Pulse Ox 100 96 Oxygen Delivery Method Room Air Room Air 02/28/22 13:00 02/28/22 13:15 02/28/22 13:28 Temperature Temperature Source Pulse Rate 113 H 114 H 114 H Respiratory Rate 16 15 18 Blood Pressure 125/89 H 123/87 H 122/86 H Blood Pressure Mean 101 99 98 Blood Pressure Source Monitor Monitor Monitor Blood Pressure Position Semi-Fowlers Semi-Fowlers Semi-Fowlers Blood Pressure Location Left Arm Left Arm Left Arm Pulse Ox 96 97 98 Oxygen Delivery Method Room Air Room Air Room Air 02/28/22 13:30 Temperature Temperature Source Pulse Rate 114 H Respiratory Rate 20 H Blood Pressure 116/83 H Blood Pressure Mean 94 Blood Pressure Source Monitor Blood Pressure Position Semi-Fowlers Blood Pressure Location Left Arm Pulse Ox Oxygen Delivery Method Weight Weight: 167 lb 12.348 oz Body Mass Index (BMI) 27.9 Physical Exam Narrative General: Alert, Oriented x3, Cooperative, No apparent distress HEENT: Atraumatic, PERRLA, EOMI, Normocephalic Oral: Moist Mucosa Neck: Supple, No JVD Lungs: Clear to auscultation, Normal air movement, No rhonchi, No wheeze, No rales Cardiovascular: Tachycardic, Regular Rhythm, Normal S1, Normal S2, No murmurs Abdomen: Soft, Non Tender, Non-Distended, No Hepato-splenomegaly Extremities: No edema, Capillary Refill Less than 3 Seconds Skin: No rashes, No breakdown Musculoskeletal: No Tenderness to Palpation of Joints or Extremities Neurological: Cranial nerves II-XII grossly intact, Motor Exam 5/5 strength throughout, Sensory exam intact to light touch and pain Psych/Mental Status: Normal Affect, Appropriate Results Lab / Micro Data Result Diagrams: 02/28/22 09:30 02/28/22 09:30 Labs: Laboratory Results - last 24 hr 02/28/22 09:30: WBC 6.7, RBC 4.88, Hgb 14.3, Hct 41.4, MCV 84.8, MCH 29.3, MCHC 34.5, RDW Std Deviation 39.0, RDW Coeff of Janay 12.8, Plt Count 250, MPV 9.2, Immature Gran % (Auto) 0.100, Neut % (Auto) 71.4 H, Lymph % (Auto) 18.2 L, Sac % (Auto) 7.8, Eos % (Auto) 1.9, Baso % (Auto) 0.6, Absolute Neuts (auto) 4.8, Absolute Lymphs (auto) 1.22, Nucleated RBC % 0 02/28/22 09:30: Sodium 142, Potassium 3.9, Chloride 110 H, Carbon Dioxide 26.0, Anion Gap 6, BUN 8, Creatinine 0.62, Estim Creat Clear Calc 93.34, Est GFR (MDRD) Af Amer 130, Est GFR (MDRD) Non-Af 107, BUN/Creatinine Ratio 12.9, Glucose 112 H, Calcium 9.0, Magnesium 2.2, Troponin I High Sens 118 H, TSH 1.65 02/28/22 11:53: Troponin I High Sens 161 H* Radiology Impression Chest X-Ray 02/28/22 09:36 IMPRESSION: No acute process Electronically Signed: Emanuel Miller MD at 10:03 EDT Reading Location ID and State: [facility] / [place] , Service support , Assessment & Plan Assessment/Plan (1) Afib: QUALIFIERS: Atrial fibrillation type: paroxysmal Qualified Code(s): I48.0 - Paroxysmal atrial fibrillation PLAN: Plan 1. A. fib with RVR status post Maze procedure with a pacemaker/HOCM status postrepair/type II non-STEMI ? Presents with recurrent palpitations, she was recently admitted to the hospital in January for similar issue. At that time she had an echo which demonstrated normal EF and stage III diastolic dysfunction secondary to HOCM ? Troponin is rising, will trend ? Consult cardiology ? Resume her Eliquis as she is daily at home secondary to increased bleeding, will place her on twice daily dosing while she is here ? She was given dose of metoprolol in the ED, will transition her to Cardizem drip ? TSH is unremarkable ? We will also continue with her p.o. metoprolol 2. Hypothyroidism ? Stable ? Continuous and 3. Anxiety/depression ? Stable ? Continue with Wellbutrin DVT: Eliquis Charges/Coding Visit Charges Inpatient E&M: 79051 Init Hosp L2
--- NOTE | 2022-02-28 14:42 | CON.PCM.CA_ITS ---
Assessment & Plan Assessment/Plan (1) Palpitations: PLAN: Patient appears to be in a flutter. Her pacemaker is evaluated. She may have missed a dose of metoprolol. Overall on her current regimen pacemaker evaluation reveals fair control of her paroxysmal A. fib. We will watch her overnight on her current medication doses. If she remains in a flutter at a ventricular rate over 100 then we will increase her metoprolol tomorrow. C ontinue Eliquis. Her TSH is within normal limits. Her elevated troponin is likely related to her arrhythmia. HPI Consult Data Date of Consult: 02/28/22 HPI Narrative Reason for Consultation: A flutter, elevated troponin HPI Narrative: ISAURO CURRAN, is a 52 F who presents with palpitations. She was found to have a heart rate of 115 bpm. Patient has history of paroxysmal A. fib. She also has history of HOCM status post septal myomectomy. She had AICD placement several years back as she was suspected to have ventricular tachycardia. She then had inappropriate shocks and the shock function of the ICD was turned off initially and then when the device had to be changed it was switched to a pacemaker. Patient also has history of maze procedure and left atrium appendage occluder placement. Since then she had recurrence of A. fib and has been started on metoprolol and Eliquis. Pacemaker evaluation reveals multiple short episodes of A. fib. This time patient may have forgotten a dose of metoprolol according to her. She has had a more prolonged episode of A. fib this time. She denies any chest pain or shortness of breath. Her troponin was 118 and went up to 160. [facility] Medical History (Updated 02/28/22 @ 14:[address] Lorena Flannery MD) Afib Cardiomyopathy in other diseases classified elsewhere HOCM (hypertrophic obstructive cardiomyopathy) Hypertrophic cardiomyopathy Hypoglycemia Hypokalemia Hypothyroidism Micturition syncope Nonrheumatic mitral (valve) prolapse Ovarian cyst Palpitations Paroxysmal atrial fibrillation Sarcoidosis Shingles Thyroid disease Ventricular tachycardia Vitamin D deficiency Home Medications coenzyme Q10 300 mg capsule 100 mg PO BID Check with primary doctor 04/26/13 [History Last Taken 06/06/14 300 MG] levothyroxine 112 mcg tablet 112 mcg PO DAILY thyroid 04/26/13 [History Last Taken 04/25/18 09:00 112 MCG] kxdwfjytlomk-Hg-wdds-minerals 1 tab PO DAILY Check with primary doctor 06/05/14 [History Last Taken Unknown] bupropion HCl 75 mg tablet 150 mg PO DAILY depression 06/16/17 [History Last Taken 06/27/17] albuterol sulfate 90 mcg/actuation aerosol inhaler 2 puff inhalation Q6H PRN Sob &/Or Wheezing 09/13/17 [History Last Taken Unknown] apixaban 5 mg tablet (Eliquis) 5 mg PO DAILY Check with primary doctor 09/20/20 [History Last Taken Unknown] metoprolol succinate 50 mg tablet,extended release 24 hr 75 mg PO DAILY Check with primary doctor 09/20/20 [History Last Taken Unknown] hydrocodone-acetaminophen 5-325mg 5mg-325mg 1 tab PO Q6H PRN PRN Pain 3 days #10 TABLETS 12/23/21 [Rx Last Taken Unknown] cholecalciferol (vitamin D3) 50 mcg (2,000 unit) capsule 50 mcg PO DAILY Check with primary doctor 01/26/22 [History Last Taken Unknown] Allergy/AdvReac Type Severity Reaction Status Date / Time chamomile flower AdvReac Unknown Verified 02/28/22 08:42 codeine AdvReac Vomiting Verified 02/28/22 08:42 diphenhydramine AdvReac Other Verified 02/28/22 08:42 [From Benadryl] latex AdvReac Unknown Verified 02/28/22 08:42 Penicillins AdvReac Swelling Verified 02/28/22 08:42 Family History Mother MVP (mitral valve prolapse) Brother Palpitations Brother Palpitations Surgical History H/O maze procedure History of (~1999) History of implantable cardiac defibrillator (ICD) (~2002) History of salpingo-oophorectomy History of tubal ligation Presence of cardiac pacemaker (~1998) Status post myomectomy Status post ventricular septal myectomy Social History household members: significant other and children number of children: 2 current occupational status: employed Smoking Status: Former smoker how long ago did patient quit smokin05/17/1992 alcohol intake: current alcohol intake frequency: a few times a month Alcohol type: beer substance use type: does not use caffeine: Yes Type: coffee what type of physical activity do you participate in: yoga, weight training and other details: tredmill frequency: 3-4 times per week duration: 45-60 minutes/day seatbelt use: always do you feel safe at home: Yes Physical Exam Const alert and oriented x3 HEENT normocephalic Eyes no scleral icterus Resp clear to auscultation bilaterally Cardio regular rate and regular rhythm Rate: regular rate Extremity no pedal edema Psych mental status grossly normal Risk Stratification Risk Stratification Applicable: No Charges/Coding Visit Charges Inpatient E&M: 57387 Init Hosp L2 Objective Data Vital Signs: Vital Signs Temp Pulse Resp BP Pulse Ox O2 Del Method 98.0 F 79 16 114/68 98 Room Air 02/28/22 11:29 02/28/22 14:30 02/28/22 14:30 02/28/22 14:30 02/28/22 13:28 02/28/22 13:28 Oxygen Delivery Method Room Air Weight: 167 lb 12.348 oz Body Mass Index (BMI) 27.9 Intake & Output: Intake and Output for Last 24 Hours 02/26/22 02/27/22 02/28/22 23:59 23:59 23:59 Intake Total 1013.66 / 1013.66 Output Total 0 / 0 Balance 1013.66 / 1013.66 Lab / Micro Data Result Diagrams: 02/28/22 09:30 02/28/22 09:30 Labs: Laboratory Results - last 24 hr 02/28/22 09:30: WBC 6.7, RBC 4.88, Hgb 14.3, Hct 41.4, MCV 84.8, MCH 29.3, MCHC 34.5, RDW Std Deviation 39.0, RDW Coeff of Janay 12.8, Plt Count 250, MPV 9.2, Immature Gran % (Auto) 0.100, Neut % (Auto) 71.4 H, Lymph % (Auto) 18.2 L, [place] % (Auto) 7.8, Eos % (Auto) 1.9, Baso % (Auto) 0.6, Absolute Neuts (auto) 4.8, Absolute Lymphs (auto) 1.22, Nucleated RBC % 0 02/28/22 09:30: Sodium 142, Potassium 3.9, Chloride 110 H, Carbon Dioxide 26.0, Anion Gap 6, BUN 8, Creatinine 0.62, Estim Creat Clear Calc 93.34, Est GFR (MDRD) Af Amer 130, Est GFR (MDRD) Non-Af 107, BUN/Creatinine Ratio 12.9, Glucose 112 H, Calcium 9.0, Magnesium 2.2, Troponin I High Sens 118 H, TSH 1.65 02/28/22 11:53: Troponin I High Sens 161 H* Cardiology Labs/Tests 02/28/22 09:30: WBC 6.7, RBC 4.88, Hgb 14.3, Hct 41.4, MCV 84.8, MCH 29.3, MCHC 34.5, Plt Count 250, MPV 9.2, Immature Gran % (Auto) 0.100, Neut % (Auto) 71.4 H , Lymph % (Auto) 18.2 L, [place] % (Auto) 7.8, Eos % (Auto) 1.9, Baso % (Auto) 0.6, Absolute Neuts (auto) 4.8, Nucleated RBC % 0 02/28/22 09:30: Sodium 142, Potassium 3.9, Chloride 110 H, Carbon Dioxide 26.0, Anion Gap 6, BUN 8, Creatinine 0.62, Est GFR (MDRD) Af Amer 130, Est GFR (MDRD) Non-Af 107, BUN/Creatinine Ratio 12.9, Glucose 112 H, Calcium 9.0, Magnesium 2.2 Rhythm: EKG: ECHO: Stress Test: Cardiac Cath: PCI: CT Surgery: Holter monitor: EPS: PPM: CXR: Chest CT Scan: Radiography Diagnostic Testing: Radiology Impression Chest X-Ray 02/28/22 09:36 IMPRESSION: No acute process Electronically Signed: Emanuel Miller MD at 10:03 EDT ,
--- NOTE | 2022-02-28 14:55 | CASEMGMT ---
RN CM Face to Face with patient for initial transition planning/care coordination assessment. RN CM introduced self and role at [facility]. Patient lying in bed, alert and oriented. Patient willing to participate in assessment and is able to answer all questions appropriately. Care providers, pharmacy, and demographics verified. Patient wishes to discharge home, denies need for home health at this time. Patient states she has no further needs or concerns at this time. CM to follow for discharge planning needs that may arise. PCP: Javi Specialists: Krysta, grip; Saima grip Preferred Pharmacy: [facility] Insurance: [employer], [employer] Prescription Benefit: yes Living Will/HPOA: yes but would like to update, SW aware LNOK: children 19yo and 22yo Living Arrangements: Patient lives with adult children in a 2 story home. Patient is independent and able to ambulate stairs. Transportation: self, children DME/HHC: Patient has remote pacemaker transmitter to check pacer every 3 months. Denies further DME. No previous HHC Disposition Plan: Patient to discharge home with family support and follow-up plans in place. Cristy JOHNSON, RN, CM
[2022-02-28 16:14] LABS: Troponin-I HS 208 pg/mL (3.0-54.0)
--- NOTE | 2022-02-28 17:53 | CASEMGMT ---
RAMIRO met with patient and her signficant other. Patient wants to complete a HCPOA. RAMIRO and RN witnessed HCPOA. Patient declined to completed Living Will as patient wants to be on a ventilator if needed. Patient also voiced she wants to be a full code. Copy placed in chart and original given to patient. Angelina MARTINEZ
[2022-02-28] MEDS: APIXABAN 5 MG TABLET PO (20:43)
[2022-02-28] MEDS: Acetaminophen 325 MG Tablet 650 MG PO (21:45)
[2022-02-28] MEDS: Metoprolol(XL)Succ 25 MG Tablet 75 MG PO (22:22)
[2022-03-01] VITALS (30 sets, daily range): BP systolic 89–115; BP diastolic 63–85; PULSE 70–115; RESP 12–25; TEMP 36.6–36.7; O2SAT 96–100
--- NOTE | 2022-03-01 03:27 | EKG12_ITS ---
Test Reason : Rhythm change Blood Pressure : / mmHG Vent. Rate : 097 BPM Atrial Rate : 000 BPM P-R Int : 000 ms QRS Dur : 158 ms QT Int : 368 ms P-R-T Axes : 000 -05 163 degrees QTc Int : 467 ms Atrial fibrillation /flutter Left bundle branch block Abnormal ECG Confirmed by ANÍBAL PLUMMER, MESERET ([id number]), editorial cartoonist SOPHIA CASSIDY ([id number]) on 03/03/2022 11:03:40 AM Referred By: Confirmed By:MESERET SPANGLER MD
[2022-03-01] MEDS: Levothyroxine 112 MCG Tablet PO (05:47)
[2022-03-01 05:59] LABS: Absolute Lymphocyte Count 2.09 X10^3/uL (0.83-4.51); Absolute Neutrophil Count 3.5 X10^3/uL (2.0-7.7); Basophil# 0.06 X10^3/uL; Basophil% 0.9 % (0-1); Eosinophil# 0.21 X10^3/uL; Eosinophils% 3.2 % (0-5); Hematocrit 42.1 % (37-47); Hemoglobin 14.2 g/dL (12.0-15.0); Lymphocyte # 2.09 X10^3/ul (0.83-4.51); Lymphocyte % 32.3 % (19-41); Mean Corp Hgb Conc 33.7 g/dL (32-36); Mean Corpuscular Hgb 28.8 pg (27.0-32.0); Mean Corpuscular Volume 85.4 fL (81-99); Mean Platelet Vol. 9.4 fl (6.2-12.0); Monocyte# 0.62 X10^3/uL; Monocyte% 9.6 % (0-10); NRBC Flagged by Analyzer 0 % (0-5); Neutrophil # 3.47 X10^3/uL (2.7-7.7); Neutrophil % 53.7 % (47-70); Platelet Count 264 K/mm3 (150-450); RBC Distribution Width CV 12.9 % (11.6-14.6); RBC Distribution Width SD 39.8 fl (35.1-43.9); Red Blood Count 4.93 M/mm3 (4.2-5.4); White Blood Count 6.5 K/mm3 (4.4-11.0)
[2022-03-01 06:37] LABS: Anion Gap 8 (5-15); BUN 9 mg/dL (7-18); BUN/Creat Ratio 13.7 RATIO (10-20); Calcium,Total 8.8 mg/dL (8.5-10.1); Chloride 108 mmol/L (98-107); Creatinine, Serum 0.66 mg/dL (0.55-1.02); EST Glomerular Filtration Rate 100 mL/min (>60); Est Glom Filt Rate - Afr Amer 121 mL/min (>60); Estimated Creatinine Clearance 87.68 ml/min; Glucose 103 mg/dL (74-106); Potassium 3.8 mmol/L (3.5-5.1); Sodium Level 143 mmol/L (136-145)
[2022-03-01] MEDS: Acetaminophen 325 MG Tablet 650 MG PO (07:32)
--- NOTE | 2022-03-01 10:09 | PN.HOSP_ITS ---
Subjective Subjective Remains on a Cardizem drip, try to wean her last night but she went back into a flutter. She is having pacer spikes at a heart rate of 75-80 even though she says that it set to a heart rate of 40. Will await cardiology evaluation. Objective Data Objective Data Vital Signs: Vital Signs Temp Pulse Resp BP Pulse Ox O2 Del Method 97.8 F 70 15 89/65 L 98 Room Air 03/01/22 07:19 03/01/22 10:00 03/01/22 10:00 03/01/22 10:00 03/01/22 07:19 03/01/22 08:24 Oxygen Delivery Method Room Air Weight: 167 lb 12.348 oz Body Mass Index (BMI) 27.9 Intake & Output: Intake and Output for Last 24 Hours 02/28/22 03/01/22 03/02/22 03:59 03:59 03:59 Intake Total 1852.15 / 1854.65 1061.58 / 1061.58 Output Total 0 / 0 Balance 1852.15 / 1854.65 1061.58 / 1061.58 Lab / Micro Data Result Diagrams: 03/01/22 05:20 03/01/22 05:20 Labs: Laboratory Results - last 24 hr 02/28/22 11:53: Troponin I High Sens 161 H* 02/28/22 15:30: Troponin I High Sens 208 H* 03/01/22 05:20: WBC 6.5, RBC 4.93, Hgb 14.2, Hct 42.1, MCV 85.4, MCH 28.8, MCHC 33.7, RDW Std Deviation 39.8, RDW Coeff of Janay 12.9, Plt Count 264, MPV 9.4, Immature Gran % (Auto) 0.300, Neut % (Auto) 53.7, Lymph % (Auto) 32.3, [place] % (Auto) 9.6, Eos % (Auto) 3.2, Baso % (Auto) 0.9, Absolute Neuts (auto) 3.5, Absolute Lymphs (auto) 2.09, Nucleated RBC % 0 03/01/22 05:20: Sodium 143, Potassium 3.8, Chloride 108 H, Carbon Dioxide 27.0, Anion Gap 8, BUN 9, Creatinine 0.66, Estim Creat Clear Calc 87.68, Est GFR (MDRD) Af Amer 121, Est GFR (MDRD) Non-Af 100, BUN/Creatinine Ratio 13.7, Glucose 103, Calcium 8.8 Physical Exam Narrative General: Alert, Oriented x3, Cooperative, No apparent distress HEENT: Atraumatic, PERRLA, EOMI, Normocephalic Oral: Moist Mucosa Neck: Supple, No JVD Lungs: Clear to auscultation, Normal air movement, No rhonchi, No wheeze, No r ales Cardiovascular: Regular rate, Regular Rhythm, Normal S1, Normal S2, No murmurs Abdomen: Soft, Non Tender, Non-Distended, No Hepato-splenomegaly Extremities: No edema, Capillary Refill Less than 3 Seconds Skin: No rashes, No breakdown Musculoskeletal: No Tenderness to Palpation of Joints or Extremities Neurological: Cranial nerves II-XII grossly intact, Motor Exam 5/5 strength throughout, Sensory exam intact to light touch and pain Psych/Mental Status: Normal Affect, Appropriate Assessment & Plan Assessment/Plan (1) Afib: QUALIFIERS: Atrial fibrillation type: paroxysmal Qualified Code(s): I48.0 - Paroxysmal atrial fibrillation PLAN: Plan 1. A. fib with RVR status post Maze procedure with a pacemaker/HOCM status postrepair/type II non-STEMI ? Presents with recurrent palpitations, she was recently admitted to the hospital in January for similar issue. At that time she had an echo which dem onstrated normal EF and stage III diastolic dysfunction secondary to HOCM ? Troponin is rising, with a peak to 2 await ? Consult cardiology ? Resume her Eliquis as she is daily at home secondary to increased bleeding, will place her on twice daily dosing while she is here ? She was given dose of metoprolol in the ED, will transition her to Cardizem drip ? TSH is unremarkable ? We will also continue with her p.o. metoprolol ? We will await cardiology evaluation secondary to abnormal rhythm and her pacer pacing at a rate other than what it sent for. It is possible she may need to be evaluated by EP versus further cardiac work-up 2. Hypothyroidism ? Stable ? Continuous and 3. Anxiety/depression ? Stable ? Continue with Wellbutrin DVT: Eliquis Charges/Coding Visit Charges Inpatient E&M: 02996 Subs Hosp L2
[2022-03-01] MEDS: buPROPion 75 MG Tablet 150 MG PO (10:21)
[2022-03-01] MEDS: APIXABAN 5 MG TABLET PO ×2 (10:21→22:19)
[2022-03-01] MEDS: Metoprolol(XL)Succ 25 MG Tablet 75 MG PO (10:21)
[2022-03-01] MEDS: dilTIAZem 30 MG Tablet PO ×2 (15:23→22:20)
--- NOTE | 2022-03-01 15:33 | PN.CARD_ITS ---
Subjective Subjective Complaints of fatigue. No significant chest pain or shortness of breath. Objective Data Vital Signs: Vital Signs Temp Pulse Resp BP Pulse Ox O2 Del Method 97.9 F 99 17 100/70 96 Room Air 03/01/22 15:20 03/01/22 15:20 03/01/22 15:20 03/01/22 15:20 03/01/22 15:20 03/01/22 15:20 Oxygen Delivery Method Room Air Weight: 167 lb 12.348 oz Body Mass Index (BMI) 27.9 Intake & Output: Intake and Output for Last 24 Hours 02/27/22 02/28/22 03/01/22 23:59 23:59 23:59 Intake Total 1591.48 / 1833.40 1789.17 / 1789.17 Output Total 0 / 0 Balance 1591.48 / 1833.40 1789.17 / 1789.17 Lab / Micro Data Result Diagrams: 03/01/22 05:20 03/01/22 05:20 Labs: Laboratory Results - last 24 hr 02/28/22 15:30: Troponin I High Sens 208 H* 03/01/22 05:20: WBC 6.5, RBC 4.93, Hgb 14.2, Hct 42.1, MCV 85.4, MCH 28.8, MCHC 33.7, RDW Std Deviation 39.8, RDW Coeff of Janay 12.9, Plt Count 264, MPV 9.4, Immature Gran % (Auto) 0.300, Neut % (Auto) 53.7, Lymph % (Auto) 32.3, [place] % (Auto) 9.6, Eos % (Auto) 3.2, Baso % (Auto) 0.9, Absolute Neuts (auto) 3.5, Absolute Lymphs (auto) 2.09, Nucleated RBC % 0 03/01/22 05:20: Sodium 143, Potassium 3.8, Chloride 108 H, Carbon Dioxide 27.0, Anion Gap 8, BUN 9, Creatinine 0.66, Estim Creat Clear Calc 87.68, Est GFR (MDRD) Af Amer 121, Est GFR (MDRD) Non-Af 100, BUN/Creatinine Ratio 13.7, Glucose 103, Calcium 8.8 Cardiology Labs/Tests 03/01/22 05:20: WBC 6.5, RBC 4.93, Hgb 14.2, Hct 42.1, MCV 85.4, MCH 28.8, MCHC 33.7, Plt Count 264, MPV 9.4, Immature Gran % (Auto) 0.300, Neut % (Auto) 53.7, Lymph % (Auto) 32.3, [place] % (Auto) 9.6, Eos % (Auto) 3.2, Baso % (Auto) 0.9, Absolute Neuts (auto) 3.5, Nucleated RBC % 0 03/01/22 05:20: Sodium 143, Potassium 3.8, Chloride 108 H, Carbon Dioxide 27.0, Anion Gap 8, BUN 9, Creatinine 0.66, Est GFR (MDRD) Af Amer 121, Est GFR (MDRD) Non-Af 100, BUN/Creatinine Ratio 13.7, Glucose 103, Calcium 8.8 Rhythm: EKG: ECHO: Stress Test: Cardiac Cath: PCI: CT Surgery: Holter monitor: EPS: PPM: CXR: Chest CT Scan: Physical Exam Const alert and oriented x3 HEENT normocephalic Resp normal respiratory effort Psych mental status grossly normal Assessment & Plan Assessment/Plan (1) Palpitations: PLAN: Due to a flutter/ A. fib. Her pacemaker was evaluated. Her IV Cardizem has been discontinued. We will add p.o. Cardizem at 30 mg p.o. every 6 hours. As an outpatient she could be considered for cardioversion. If her heart rate remains controlled overnight then she could be discharged home tomorrow. She has fair amount of fatigue with A. fib. 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 Patient's blood pressure did drop with Cardizem. While we are adjusting her medications it is reasonable for patient to be off work as she is symptomatic from her A. fib and her job is very physical. I would recommend that she stays off work for 1 week while we adjust her medications for optimal rate control and blood pressure. This is what the patient prefers as well. (2) Afib: QUALIFIERS: Atrial fibrillation type: paroxysmal Qualified Code(s): I48.0 - Paroxysmal atrial fibrillation Charges/Coding Visit Charges Inpatient E&M: 13526 Subs Hosp L2
[2022-03-02 03:00] VITALS: PULSE 93
[2022-03-02 03:53] VITALS: BP 110/88; PULSE 101; RESP 16; TEMP 36.1; O2SAT 98
[2022-03-02] MEDS: Levothyroxine 112 MCG Tablet PO (05:57)
[2022-03-02] MEDS: dilTIAZem 30 MG Tablet PO (05:57)
[2022-03-02 05:58] VITALS: BP 101/77; PULSE 95; RESP 16; TEMP 36.5; O2SAT 96
[2022-03-02 07:17] VITALS: PULSE 99
[2022-03-02 08:47] VITALS: BP 110/78; PULSE 88; RESP 16; TEMP 36.6; O2SAT 97
[2022-03-02 08:50] VITALS: BP 110/78; PULSE 88
[2022-03-02] MEDS: APIXABAN 5 MG TABLET PO (08:50)
[2022-03-02] MEDS: Metoprolol(XL)Succ 25 MG Tablet 75 MG PO (08:50)
[2022-03-02] MEDS: buPROPion 75 MG Tablet 150 MG PO (08:50)
--- NOTE | 2022-03-02 09:26 | PN.CARD_ITS ---
Subjective Subjective The patient is awake and alert. She denies ongoing chest discomfort, difficulty breathing, or rapid heart rates. She states she does feel tired overall which she believes may be related to multiple etiologies including work related etiologies. Objective Data Vital Signs: Vital Signs Temp Pulse Resp BP Pulse Ox O2 Del Method 97.8 F 88 16 110/78 97 Room Air 03/02/22 08:47 03/02/22 08:50 03/02/22 08:47 03/02/22 08:50 03/02/22 08:47 03/02/22 08:50 Oxygen Delivery Method Room Air Weight: 167 lb 12.348 oz Body Mass Index (BMI) 27.9 Intake & Output: Intake and Output for Last 24 Hours 02/28/22 03/01/22 03/02/22 23:59 23:59 23:59 Intake Total 1591.48 / 1833.40 1789. / 2028.17 540 / 540 Output Total 0 / 0 Balance 1591.48 / 1833.40 178. / 2028. 540 / 540 Lab / Micro Data Result Diagrams: 03/01/22 05:20 03/01/22 05:20 Cardiology Labs/Tests Rhythm: Atrial fibrillation/flutter; electronic ventricular paced ECHO: 01-27-2022 Interpretation Summary Normal LV size. Left ventricular systolic function is normal. Status post septal myectomy. The estimated ejection fraction is 55 %. ICD or pacer leads identified within the right ventricle. Trivial eccentric mitral valve insufficiency. Stage 3 diastolic dysfunction. Moderate concentric left ventricular hypertrophy. The left atrium is mildly enlarged. Contrast injection was performed. Physical Exam Const alert, oriented x3, no apparent distress and healthy appearing HEENT normocephalic, head/scalp atraumatic and hearing grossly normal bilaterally Eyes PERRL, EOMs intact bilaterally, conjunctivae normal and no scleral icterus Neck full ROM, supple and no JVD Carotids: normal carotid upstroke Chest Chest: midline sternotomy incision Resp normal respiratory effort and clear to auscultation bilaterally Cardio Rhythm: abnormal rhythm irregularly irregular Heart Sounds: S1 normal and S2 normal GI normal to inspection, nondistended, normoactive bowel sounds Extremity no pedal edema Skin no rashes or lesions noted Psych mental status grossly normal Assessment & Plan Assessment/Plan (1) Atrial fibrillation and flutter: PLAN: The appears to have recurrence of atrial fibrillation/flutter. She has been on rate control therapy. She states based upon her previous chest wall trauma her anticoagulant dose was changed/decreased. Thus she has not been on subtherapeutic anticoagulant therapy until her hospitalization. She has recently undergone noninvasive valuation with radiologic studies and transthoracic echocardiogram. The results are noted. At the present time it may be reasonable to continue her rate control therapy with adjustment of medications as deemed appropriate and maintain therapeutic anticoagulation therapy. The patient, if she remains stable, could be considered for future outpatient synchronized biphasic DC cardioversion once she is considered adequately anticoagulated. Otherwise she would need to be considered for PEDRO LUIS guided synchronized biphasic DC cardioversion, which she states she has gone through in the past and would like to avoid. Thus, at the present time, she will continue medical management/adjustment with plans for future outpatient synchronized biphasic DC cardioversion. (2) Cardiomyopathy: PLAN: She does have a history of a hypertrophic obstructive cardiomyopathy. It appears she underwent [facility] surgery in June 2018. At the moment she will continue her medical management. (3) H/O ventricular septal myectomy: PLAN: Based upon her hypertrophic cardiomyopathy she underwent a ventricular septal myectomy. At the moment she appears to be stable. Her recent transthoracic echocardiogram has been noted. She will continue medical therapy (4) H/O maze procedure: PLAN: The patient underwent a Schultz-Maze procedure during her open heart surgery. She states she has done well with her atrial dysrhythmia until approximately a year ago at which time she required reevaluation at [facility] which led to synchronized biphasic DC cardioversion. She states she did well until recently when her atrial dysrhythmia returned. However, she states that she believes she has been in and out of atrial fibrillation at other times in the interim. At the moment she will continue medical therapy/management as noted above. If despite these measures she has continued concerns with her atrial dysrhythmia then she may need to be reassessed by her [facility] hot sealing machine operator for consideration for additional antiarrhythmic therapy or possible EPS/RFA. (5) S/P left atrial appendage ligation: PLAN: The patient did undergo a left atrial appendage clip device during her [facility] open heart surgery. Thus this does minimize the risk of performing thromboembolic related events. However, she will continue anticoagulation unless otherwise contraindicated especially noting that she may require future synchronized biphasic DC cardioversion. (6) Presence of cardiac pacemaker: PLAN: The patient is reported as initially having an ICD. Apparently this was changed over time to a permanent pacemaker. She notes after her chest wall trauma her pacemaker was interrogated and was functioning appropriately. However she states she is also on the watch based upon possible pacemaker battery depletion. At the present time she will need to continue to have her pacemaker monitored for the need for a generator change. Addt'l Comments The above was discussed and reviewed with the patient at length. She was agreeable to this approach. Patient's case is also been previously discussed with Dr. Hahn of the [facility] hospitalist group. This note was generated using a voice recognition system and there may be i ncorrect words, spelling or punctuation that were not noted when reviewing the office note prior to saving. Procedure Criteria Type of Procedure Procedure Type: Elective Elective Risks - COVID COVID Risk Discussion: The surgeon/proceduralist and patient have discussed in detail the risk of exposure to and/or potential harm posed by the COVID-19 virus with having a surgery/procedure at this time versus the risk of delaying the surgery/procedure. It is not possible to know either the risk of delaying the surgery or procedure or chance of getting an infection with perfect accuracy, but a joint decision was made between the patient and the surgeon/proceduralist to proceed at this time with the scheduled surgery/procedure as indicated on the consent form.
[2022-03-02] MEDS: dilTIAZem CD 120 MG Capsule PO (10:10)
--- NOTE | 2022-03-02 11:51 | PCM.DC.SUM ---
Providers Date of Admission: 02/28/22 Date of Discharge: 03/02/22 Primary Care Physician: Dr. Maxime Caldwell, Consultations 02/28/22 11:27 Consult: Cardiology Routine Consulting Provider: Lorena Flannery Reason for Consult: Afib/flutter with pacer EMERGENT Consult: No MD Notified: Yes Date Notified: 02/28/22 Time Notified: 10:36 Method of Notification: ED Physician Initiated Reason For Visit: PALPITATIONS WITH TACHYCARDIA Diagnosis Discharge Diagnosis (1) Atrial fibrillation and flutter: Status: Acute Code(s): I48.91 - Unspecified atrial fibrillation; I48.92 - Unspecified atrial flutter (2) Cardiomyopathy: Status: Acute Code(s): I42.9 - Cardiomyopathy, unspecified (3) H/O ventricular septal myectomy: Status: Acute Code(s): Z98.890 - Other specified postprocedural states (4) H/O maze procedure: Status: Acute Code(s): Z98.890 - Other specified postprocedural states (5) S/P left atrial appendage ligation: Status: Acute Code(s): Z98.890 - Other specified postprocedural states (6) Presence of cardiac pacemaker: Status: Acute Code(s): Z95.0 - Presence of cardiac pacemaker Medications at Discharge Home Medications coenzyme Q10 300 mg capsule 100 mg PO BID Check with primary doctor 04/26/13 levothyroxine 112 mcg tablet 112 mcg PO DAILY thyroid 04/26/13 ojiezhhflnfw-Qg-pxkm-minerals 1 tab PO DAILY Check with primary doctor 06/05/14 bupropion HCl 75 mg tablet 150 mg PO DAILY depression 06/16/17 albuterol sulfate 90 mcg/actuation aerosol inhaler 2 puff inhalation Q6H PRN Sob &/Or Wheezing 09/13/17 apixaban 5 mg tablet (Eliquis) 5 mg PO DAILY Check with primary doctor 09/20/20 metoprolol succinate 50 mg tablet,extended release 24 hr 75 mg PO DAILY Check with primary doctor 09/20/20 hydrocodone-acetaminophen 5-325mg 5mg-325mg 1 tab PO Q6H PRN PRN Pain 3 days #10 TABLETS 12/23/21 cholecalciferol (vitamin D3) 50 mcg (2,000 unit) capsule 50 mcg PO DAILY Check with primary doctor 01/26/22 diltiazem HCl 120 mg capsule,extended release 24 hr 120 mg PO DAILY #30 caps 03/02/22 Hospital Course Operations None Procedures 2-D Echocardiogram Summary of Care Provided Minutes Spent on Discharge: 45 Hospital Course: Patient is a 52 y/o female with a PMH as outlined who was admitted with a complaint of palpitations. She has a history of afib s/p MAZE procedure in 2019, as well as having a pacemaker. SHe said she had palpitations and was found to be in afib with RVR. Her troponins were also elevated and trended upwards. She was admitted and managed for afib with RVR and nonstemi. Cardiology was consulted. She was on eliquis. She was placed on cardizem drip. Elevated troponin was thought to be due to afib with RVR. She was placed on her PO metoprolol and was transitioned to PO cardizem drip. She remained in afib though she was rate controlled. Cardiology recommended that she be placed on PO cardizem 120mg daily and to continue her metoprolol. She is to follow up with her PCP and cardiology. She is to have cardioversion on outpatient basis with cardiology. Patient seen and examined. She had no active complaints and had an uneventful night. She denies any fever, chills, cough, chest pain, palpitations, nausea, vomiting or diarrhea. Review of systems is otherwise negative. Home medications reviewed and reconciled. Physical Exam Const alert, oriented x3 and no apparent distress General Appearance: cooperative and comfortable Orientation / Consciousness: awake Exam Limitations: no limitations HEENT normocephalic, head/scalp atraumatic, hearing grossly normal bilaterally and moist oral mucous membranes Mouth: oral and palatal mucosa normal Eyes PERRL, EOMs intact bilaterally and conjunctivae normal Neck no lymphadenopathy, supple and no JVD Resp normal respiratory effort, no retractions, no use of accessory muscles and clear to auscultation bilaterally Cardio regular rate, S1 normal heart sound, S2 normal heart sound and no murmurs Cardio Narrative: irregular rhythm; afib, rate controlled GI normal to inspection, nondistended, normoactive bowel sounds, soft to palpation, non-tender and non-distended Extremity normal to inspection, full ROM and no clubbing, cyanosis or edema General Extremity: edema Skin no rashes or lesions noted Neuro oriented x3, CN's II-XII intact bilaterally, moves all extremities and no focal motor deficits Sensorium / Orientation: awake Motor Exam: strength 5/5 throughout Psych affect normal Weight / BMI Weight Weight: 167 lb 12.348 oz Body Mass Index (BMI) 27.9 ABG / Lab / Microbiology Data Result Diagrams: 03/01/22 05:20 03/01/22 05:20 D/C Instructions Discharge Diet: Low fat / Low cholesterol Discharge Activity: Return to Normal Activity Weight Bearing Status: Weight bearing as tolerated Call your doctor if you observe: Fever of 101 or Higher, Shortness of breath, Dizziness, Swelling in the ankles, Chest pain, Increased palpitations (irregular heartbeat) and Calf discomfort Meaningful Use Info Meaningful Use Diagnoses (Choose all that apply): None applicable Discharge Plan Admission Admit Date/Time: 02/28/22 10:33 Primary Reason for Your Visit: afib with RVR Attending Provider: Kimmie Hahn Primary Care Provider: Maxime Caldwell Consulting Providers: Lorena Flannery ; Lowell Ledesma Instructions Patient Instructions: AFib Dc Discharge Orders/Prescriptions Prescriptions: New diltiazem HCl 120 mg Capsule,Extended Release 24hr 120 mg PO DAILY Qty: 30 2RF Continued albuterol sulfate 90 mcg/actuation HFA aerosol inhaler 2 puff INHALATION Q6H PRN (Reason: Sob &/Or Wheezing) levothyroxine 112 MCG tablet 112 mcg PO DAILY Label Comments: thyroid coenzyme Q10 300 MG capsule 100 mg PO BID Label Comments: supplement iwofbulmzbvw-Ba-orrf-minerals 1 EACH tablet 1 tab PO DAILY bupropion HCl 75 MG tablet 150 mg PO DAILY Eliquis 5 mg Tablet 5 mg PO DAILY metoprolol succinate 50 mg tablet extended release 24 hr 75 mg PO DAILY hydrocodone-acetaminophen 5-325 mg tablet 1 tab PO Q6H PRN PRN (Reason: Pain) 3 Days Qty: 10 0RF cholecalciferol (vitamin D3) 50 mcg (2,000 unit) Capsule 50 mcg PO DAILY Referrals / Follow Up: Tree Chaparro MD [Med Staff - Active Staff] - Within 2 Weeks Maxime Caldwell DO [Primary Care Provider] - Within 1 Week Disposition Disposition (needs filled in before D/C Order can be placed): Home, Self Care Charges/Coding Visit Charges Inpatient E&M: 11220 Disch Hosp
--- NOTE | 2022-03-02 12:40 | CASEMGMT ---
Pt states no concerns with going home at time of discharge. Pt has been independent in room. Cordell WALLER CM
--- NOTE | 2022-03-02 13:30 | PHA.DC.MR ---
Pharmacy Service has performed discharge medication reconciliation for this patient. The patient's discharge medication list was reviewed for discrepancies and discrepancies were resolved. Unable to senior vice president & general counsel, medications reviewed. Per H&P, patient takes Eliquis daily due to increased bleeding. Home Medications coenzyme Q10 300 mg capsule 100 mg PO BID Check with primary doctor 04/26/13 levothyroxine 112 mcg tablet 112 mcg PO DAILY thyroid 04/26/13 ddiflrendnsm-Hs-ioyv-minerals 1 tab PO DAILY Check with primary doctor 06/05/14 bupropion HCl 75 mg tablet 150 mg PO DAILY depression 06/16/17 albuterol sulfate 90 mcg/actuation aerosol inhaler 2 puff inhalation Q6H PRN Sob &/Or Wheezing 09/13/17 apixaban 5 mg tablet (Eliquis) 5 mg PO DAILY Check with primary doctor 09/20/20 metoprolol succinate 50 mg tablet,extended release 24 hr 75 mg PO DAILY Check with primary doctor 09/20/20 hydrocodone-acetaminophen 5-325mg 5mg-325mg 1 tab PO Q6H PRN PRN Pain 3 days #10 TABLETS 12/23/21 cholecalciferol (vitamin D3) 50 mcg (2,000 unit) capsule 50 mcg PO DAILY Check with primary doctor 01/26/22 diltiazem HCl 120 mg capsule,extended release 24 hr 120 mg PO DAILY #30 caps 03/02/22
== END 2022-03-02 13:32 | disposition home or self-care (01) | DRG 282 ==
LOC: ED 09:06 → PCU 10:53
PROVIDERS: Admitting Provider Family Medicine; Emergency Provider Emergency Medicine; PCP Student in an Organized Health Care Education/Training Program; Visit Provider Student in an Organized Health Care Education/Training Program
DX: I48.0 Paroxysmal atrial fibrillation (principal); I21.A1 Myocardial infarction type 2; I42.9 Cardiomyopathy, unspecified; I48.92 Unspecified atrial flutter; E03.9 Hypothyroidism, unspecified; F41.9 Anxiety disorder, unspecified; Z79.01 Long term (current) use of anticoagulants; Z87.891 Personal history of nicotine dependence; F32.A Depression, unspecified; Z95.810 Presence of automatic (implantable) cardiac defibrillator
CPT/HCPCS: 36415; 71045; 80048; 83735; 84443; 84484; 85025; 93005; 99285; J7030; A4216

== ENCOUNTER 2022-05-06 10:11 | Emergency (ER) | payer OTHER, MEDICAID, SELFPAY ==
[2022-05-06 10:12] VITALS: BP 138/88; PULSE 118; RESP 18; TEMP 36.1; O2SAT 98; BMI 27.9
--- NOTE | 2022-05-06 10:51 | EKG12_ITS ---
Test Reason : PALP Blood Pressure : / mmHG Vent. Rate : 117 BPM Atrial Rate : 000 BPM P-R Int : 000 ms QRS Dur : 152 ms QT Int : 392 ms P-R-T Axes : 000 022 194 degrees QTc Int : 546 ms Wide QRS rhythm : Consider Sinus Tachycardia Left bundle branch block Abnormal ECG Confirmed by ANÍBAL PLUMMER, MESERET ([id number]), editor managing newspaper SOPHIA CASSIDY ([id number]) on 05/07/2022 8:27:46 AM Referred By: SID Confirmed By:MESERET SPANGLER MD
--- NOTE | 2022-05-06 10:52 | EX.ED.DYSGE1 ---
HPI History of Present Illness Chief Complaint: Palpitations Informant: patient Narrative Narrative: Patient sent in here after talking with her media arts professor, Dr. Rizzo, from [facility] today. She has been having fatigue and palpitations for the last couple months. She was diagnosed with influenza a week ago. History of hypertrophic cardiomyopathy defibrillator placed 22 years ago. She states since then would go off inappropriately with switched over to a pacemaker 7 years ago. When she is diagnosed also with atrial fibrillation paroxysmal. She is on Eliquis. She has been taking the medications. Metoprolol 75 mg daily. With her symptoms she was added Cardizem 60 mg twice daily over the last couple months. She has still been feeling symptoms. She had her pacemaker interrogated a week ago by Dr. Lopez her EP doctor reported she mostly in atrial fibrillation. Due to her symptoms we discussed with her media arts professor the day was sent to the ED for possible defibrillation. She is also followed locally by Dr. Chaparro. No recent vomiting or diarrhea. Reports her heart rate is typically lower.'s been running 80s to 110s that she has been noticing. Prior similar symptoms: Yes PFSH PFSH Medical History Afib Atrial fibrillation and flutter Cardiomyopathy Cardiomyopathy in other diseases classified elsewhere HOCM (hypertrophic obstructive cardiomyopathy) Hypertrophic cardiomyopathy Hypoglycemia Hypokalemia Hypothyroidism Micturition syncope Nonrheumatic mitral (valve) prolapse Ovarian cyst Palpitations Paroxysmal atrial fibrillation Presence of cardiac pacemaker Sarcoidosis Shingles Thyroid disease Ventricular tachycardia Vitamin D deficiency Home Medications levothyroxine 112 mcg tablet 112 mcg PO DAILY thyroid 04/26/13 [History Last Taken 04/25/18 09:00 112 MCG] rvvbkjannbiz-Jo-qjtj-minerals 1 tab PO DAILY Check with primary doctor 06/05/14 [History Last Taken Unknown] bupropion HCl 75 mg tablet 150 mg PO DAILY depression 06/16/17 [History Last Taken 06/27/17] albuterol sulfate 90 mcg/actuation aerosol inhaler 2 puff inhalation Q6H PRN Sob &/Or Wheezing 09/13/17 [History Last Taken Unknown] apixaban 5 mg tablet (Eliquis) 5 mg PO BID Check with primary doctor 09/20/20 [History Last Taken Unknown] metoprolol succinate 50 mg tablet,extended release 24 hr 75 mg PO DAILY Check with primary doctor 09/20/20 [History Last Taken Unknown] hydrocodone-acetaminophen 5-325mg 5mg-325mg 1 tab PO Q6H PRN PRN Pain 3 days #10 TABLETS 12/23/21 [Rx Last Taken Unknown] cholecalciferol (vitamin D3) 50 mcg (2,000 unit) capsule 50 mcg PO DAILY Check with primary doctor 01/26/22 [History Last Taken Unknown] amoxicillin 875 mg-potassium clavulanate 125 mg tablet 1 tab PO TID 05/06/22 [History Last Taken Unknown] diltiazem HCl 120 mg capsule,extended release 24 hr 60 mg PO BID 05/06/22 [History Last Taken Unknown] prednisone 10 mg tablet 20 mg PO DAILY 05/06/22 [History Last Taken Unknown] Allergy/AdvReac Type Severity Reaction Status Date / Time chamomile flower AdvReac Unknown Verified 05/06/22 10:14 codeine AdvReac Vomiting Verified 05/06/22 10:14 diphenhydramine AdvReac Other Verified 05/06/22 10:14 [From Benadryl] latex AdvReac Unknown Verified 05/06/22 10:14 Penicillins AdvReac Swelling Verified 05/06/22 10:14 Family History Mother MVP (mitral valve prolapse) Brother Palpitations Brother Palpitations Surgical History H/O maze procedure H/O maze procedure H/O ventricular septal myectomy History of (~1999) History of implantable cardiac defibrillator (ICD) (~2002) History of salpingo-oophorectomy History of tubal ligation Presence of cardiac pacemaker (~1998) S/P left atrial appendage ligation Status post myomectomy Status post ventricular septal myectomy Social History household members: significant other and children number of children: 2 current occupational status: employed Smoking Status: Former smoker how long ago did patient quit smokin05/17/1992 alcohol intake: current alcohol intake frequency: a few times a month Alcohol type: beer substance use type: does not use caffeine: Yes Type: coffee what type of physical activity do you participate in: yoga, weight training and other details: tredmill frequency: 3-4 times per week duration: 45-60 minutes/day seatbelt use: always do you feel safe at home: Yes ROS ROS ED Constitutional Constitutional ED: Denies chills, fever(s) or sweats Eyes Eyes: Denies change in vision ENT ENT ED: Denies dysphagia or sore throat Cardiovascular Cardiovascular: Reports palpitations; Denies chest pain, leg edema or racing heartbeat Respiratory/Chest Respiratory/Chest: Denies cough, dyspnea or dyspnea on exertion Gastrointestinal Gastrointestinal: Denies abdominal pain, diarrhea, nausea or vomiting Genitourinary Genitourinary ED: Denies dysuria, hematuria or urinary frequency Musculoskeletal Musculoskeletal: Denies back pain, extremity pain or neck pain Integumentary Denies rash or wounds Neurologic Neurologic: Denies headache(s), paresthesias or weakness EXAM Physical Exam Const Vital Signs: 05/06/22 10:12 05/06/22 10:39 05/06/22 11:11 Temperature 97 F L Temperature Source Temporal Pulse Rate 118 H 108 H Respiratory Rate 18 18 Respiratory Effort Normal Respiratory Pattern Normal Blood Pressure 138/88 H 111/68 Blood Pressure Mean 104 82 Pulse Ox 98 97 Oxygen Delivery Method Room Air Room Air 05/06/22 12:00 05/06/22 14:00 Temperature 97.8 F Temperature Source Pulse Rate 78 78 Respiratory Rate 16 16 Respiratory Effort Respiratory Pattern Blood Pressure 108/88 H 116/78 Blood Pressure Mean 94 Pulse Ox 99 100 Oxygen Delivery Method Room Air Positive well nourished and well developed General Appearance ED: well developed and NAD HEENT Reports moist mucous membranes normocephalic and atraumatic Eyes PERRL, EOMs intact bilaterally and conjunctivae normal General Eye ED: Yes normal appearance of both eyes Neck no lymphadenopathy and supple General: Negative for tenderness Chest Wall Chest: Negative for tenderness Resp normal respiratory effort and normal air movement Effort and Inspection: symmetric chest movement; Negative for respiratory distress Cardio regular rate, regular rhythm and no murmurs Peripheral Pulses: pulses 2+ throughout GI normal to inspection, nondistended, normoactive bowel sounds and non-tender Palpation: Negative for guarding or rebound tenderness present Back/Spine no CVA tenderness and no thoracic nor lumbar tenderness Extremity normal to inspection General Extremety ED: Negative for edema or tenderness General Extremity: Negative for edema Neuro oriented x3 and no sensory deficits noted Sensorium / Orientation: awake and alert Skin no rashes or lesions noted and no wounds MDM MDM MDM Narrative Medical decision making narrative: Patient heart rhythm today is regular rhythm with underlying left bundle branch block. No irregularities. On the monitor heart rate fluctuate from 80s to 110s. Blood pressure stable. I will check labs. Will reevaluate. Patient labs all normal with normal electrolytes. Two-view chest x-ray reviewed by myself and read by radiology shows no acute process. Multiple reevaluations heart rate in the 80s and 90s she became less symptomatic. Discussed patient there is a possibility of atrial flutter with heart rate in the 110s. However this will slow down. Discussed really no indication for cardioversion with her improvement of symptoms. She understands this. Try to reach out to her local media arts professor Dr. Chaparro, however he was not on-call or available. Placed a page out to her media arts professor Dr. Lopez at [facility], awaiting callback and did not receive a call back. Rediscussion with patient on update, she states she would like to go home and follow-up as an outpatient. Discussed possibility of increasing her Cardizem as she felt better with the slower heart rate. Discussed if he calls back and possibly discuss increases with her as an outpatient. Therefore patient is discharged with outpatient follow-up. Return precautions. All questions were answered. Lab Data Attestation: I reviewed the patient's lab results. Labs: Laboratory Results - last 24 hr 05/06/22 05/06/22 11:00 11:00 WBC 9.3 RBC 4.85 Hgb 13.7 Hct 40.9 MCV 84.3 MCH 28.2 MCHC 33.5 RDW Std Deviation 38.2 RDW Coeff of Janay 12.5 Plt Count 328 MPV 8.8 Immature Gran % (Auto) 0.600 Neut % (Auto) 48.1 Lymph % (Auto) 40.9 [place] % (Auto) 8.1 Eos % (Auto) 1.8 Baso % (Auto) 0.5 Absolute Neuts (auto) 4.5 Absolute Lymphs (auto) 3.79 Total Counted 0.05 Neutrophils % (Manual) 0.05 L Band Neutrophils % 0.05 Lymphocytes % (Manual) 0.05 L Monocytes % (Manual) 0.05 Eosinophils % (Manual) 0.05 Basophils % (Manual) 0.05 Metamyelocytes % 0.05 Myelocytes % 0.05 H Promyelocytes % 0.05 H Blast Cells % 0.05 H* Nucleated RBC % 0 Atypical Lymphocytes 1+ Sodium 140 Potassium 3.8 Chloride 105 Carbon Dioxide 30.0 Anion Gap 5 BUN 13 Creatinine 0.71 Estim Creat Clear Calc 81.51 Est GFR (MDRD) Af Amer 111 Est GFR (MDRD) Non-Af 92 BUN/Creatinine Ratio 18.4 Glucose 108 H Calcium 8.8 Magnesium 2.2 Radiography Diagnostic Testing: Clinical Impression(s) from Imaging Studies Chest X-Ray 05/06/22 11:03 IMPRESSION: No acute abnormality is seen. Electronically Signed: Bernabe Rios MD at 12:23 EST , EKG Initial EKG: Attestation: I personally reviewed and interpreted this EKG as follows: Comments: Wide-complex tachycardia rate of 117 underlying left bundle branch block. Known left bundle branch block from previous EKG in February. No concerns of atrial fibrillation at that time in February. Discharge Plan Triage Chief Complaint: Palpitations ED Provider: Alexander Calvo Dx/Rx/DC Orders Clinical Impression: History of atrial fibrillation, History of left bundle branch block, Palpitation Instructions: ED Palpitations Prescriptions: No Action albuterol sulfate 90 mcg/actuation HFA aerosol inhaler 2 puff INHALATION Q6H PRN (Reason: Sob &/Or Wheezing) levothyroxine 112 MCG tablet 112 mcg PO DAILY Label Comments: thyroid cxwpbwnimpfz-Fc-zagm-minerals 1 EACH tablet 1 tab PO DAILY bupropion HCl 75 MG tablet 150 mg PO DAILY Eliquis 5 mg Tablet 5 mg PO BID metoprolol succinate 50 mg tablet extended release 24 hr 75 mg PO DAILY hydrocodone-acetaminophen 5-325 mg tablet 1 tab PO Q6H PRN PRN (Reason: Pain) 3 Days Qty: 10 0RF cholecalciferol (vitamin D3) 50 mcg (2,000 unit) Capsule 50 mcg PO DAILY diltiazem HCl 120 mg capsule,extended release 24hr 60 mg PO BID prednisone 10 mg tablet 20 mg PO DAILY Rx Instructions: ON TAPER PROTOCOL amoxicillin-pot clavulanate 875-125 mg tablet 1 tab PO TID Primary Care Provider: Maxime Caldwell Referrals: Maxime Caldwell DO [Primary Care Provider] - 1 Week Activity Restrictions/Additional Instructions: your labs are all normal. Your EKG appears to be regular rhythm 110s, improved down in the 80s and 90s on reevaluation noting sinus rhythm. Discussed with Dr. Lopez if any adjustments need to you are Cardizem. Disposition Disposition: Home, Self Care Discharge Date/Time: 05/06/22 14:07
--- NOTE | 2022-05-06 11:03 | RAD_ITS ---
STUDY: X-RAY CHEST REASON FOR EXAM: Female, 52 years old. Palpitations. TECHNIQUE: Single AP portable view of the chest. COMPARISON: Comparison is made with prior study 02/28/2022. FINDINGS: EKG electrodes are seen. The lungs are clear and expanded. There is no demonstrated pleural abnormality. Sternal cerclage wires are present from a prior sternotomy. A left atrial clip is seen. A left-sided dual-chamber pacemaker is present. Normal mediastinum and berta. Normal visualized pulmonary arteries. Normal visualized aortic arch and descending thoracic aorta. Normal visualized thoracic spine. Normal visualized ribs, clavicles, and shoulders. There is no demonstrated abnormality of the visualized soft tissue structures of the upper abdomen. RAD/Chest 1 View (Portable) IMPRESSION: No acute abnormality is seen. Electronically Signed: Bernabe Rios MD at 12:23 EST ,
[2022-05-06 11:05] LABS: Absolute Lymphocyte Count 3.79 X10^3/uL (0.83-4.51); Absolute Neutrophil Count 4.5 X10^3/uL (2.0-7.7); Basophil# 0.05 X10^3/uL; Basophil% 0.5 % (0-1); Eosinophil# 0.17 X10^3/uL; Eosinophils% 1.8 % (0-5); Hematocrit 40.9 % (37-47); Hemoglobin 13.7 g/dL (12.0-15.0); Lymphocyte # 3.79 X10^3/ul (0.83-4.51); Lymphocyte % 40.9 % (19-41); Mean Corp Hgb Conc 33.5 g/dL (32-36); Mean Corpuscular Hgb 28.2 pg (27.0-32.0); Mean Corpuscular Volume 84.3 fL (81-99); Mean Platelet Vol. 8.8 fl (6.2-12.0); Monocyte# 0.75 X10^3/uL; Monocyte% 8.1 % (0-10); NRBC Flagged by Analyzer 0 % (0-5); Neutrophil # 4.45 X10^3/uL (2.7-7.7); Neutrophil % 48.1 % (47-70); POSITIVE MORPHOLOGY YES; Platelet Count 328 K/mm3 (150-450); RBC Distribution Width CV 12.5 % (11.6-14.6); RBC Distribution Width SD 38.2 fl (35.1-43.9); Red Blood Count 4.85 M/mm3 (4.2-5.4); White Blood Count 9.3 K/mm3 (4.4-11.0)
[2022-05-06 11:11] VITALS: BP 111/68; PULSE 108; RESP 18; O2SAT 97
[2022-05-06 11:22] LABS: Anion Gap 5 (5-15); BUN 13 mg/dL (7-18); BUN/Creat Ratio 18.4 RATIO (10-20); Calcium,Total 8.8 mg/dL (8.5-10.1); Chloride 105 mmol/L (98-107); Creatinine, Serum 0.71 mg/dL (0.55-1.02); EST Glomerular Filtration Rate 92 mL/min (>60); Est Glom Filt Rate - Afr Amer 111 mL/min (>60); Estimated Creatinine Clearance 81.51 ml/min; Glucose 108 mg/dL (74-106); Magnesium 2.2 mg/dL (1.6-2.6); Potassium 3.8 mmol/L (3.5-5.1); Sodium Level 140 mmol/L (136-145)
[2022-05-06 11:44] LABS: Differential Indicated SCAN CRITERIA MET
[2022-05-06 12:00] VITALS: BP 108/88; PULSE 78; RESP 16; O2SAT 99
[2022-05-06 12:17] LABS: Atypical Lymphocyte 1+ %; Basophil 0.05 % (0-1); Blast 0.05 % (0-0); Eosinophil 0.05 % (0-5); Lymphocyte 0.05 % (19-41); Metamyelocyte 0.05 % (0-1); Monocyte 0.05 % (0-10); Myelocyte 0.05 % (0-0); Neutrophil-Band 0.05 % (0-5); Neutrophil-Segmented 0.05 % (47-70); Promyelocyte 0.05 % (0-0); Total Cells Counted 0.05 (MANUAL DIFF)
[2022-05-06 14:00] VITALS: BP 116/78; PULSE 78; RESP 16; TEMP 36.6; O2SAT 100
== END 2022-05-06 14:07 | disposition home or self-care (01) ==
PROVIDERS: Emergency Provider Emergency Medicine; PCP Student in an Organized Health Care Education/Training Program; Visit Provider Emergency Medicine
DX: R00.2 Palpitations (principal); I48.91 Unspecified atrial fibrillation; I44.7 Left bundle-branch block, unspecified; Z87.891 Personal history of nicotine dependence; E03.9 Hypothyroidism, unspecified
CPT/HCPCS: 71045; 80048; 83735; 85025; 93005; 99284; J7030